=== PATIENT | female | born 1960 | race Caucasian/White ===

== ENCOUNTER 2022-11-17 16:36 | Outpatient (CLI) | payer OTHER, SELFPAY ==
[2022-11-17 17:09] LABS: Hematocrit 37.9 % (37.0-47.0); Hemoglobin 12.1 g/dL (12.0-15.0)
[2022-11-17 17:16] LABS: Anion Gap 9 mmol/L (8-16); Blood Urea Nitrogen 24 mg/dL (7-17); Calcium 9.7 mg/dL (8.4-10.2); Carbon Dioxide 25 mmol/L (22-30); Chloride 102 mmol/L (98-107); Estimated Glomerular Filt Rate > 60; Glucose 136 mg/dL (65-110); Potassium 3.8 mmol/L (3.4-5.0); Sodium 136 mmol/L (137-145)
== END 2022-11-17 16:37 | disposition home or self-care (01) ==
PROVIDERS: PCP Internal Medicine; Visit Provider Anesthesiology
DX: E11.9 Type 2 diabetes mellitus without complications (principal); D64.9 Anemia, unspecified; Z01.818 Encounter for other preprocedural examination
CPT/HCPCS: 36415; 80048; 85014; 85018

== ENCOUNTER 2022-11-23 00:41 | Day surgery (SDC) | payer OTHER, SELFPAY ==
[2022-11-16 08:27] VITALS: BMI 33.2
--- NOTE | 2022-11-16 08:38 | PC.NURSE ---
Report to the Outpatient Waiting Room, entrance under the green pavilion located off [facility], at time _0900_ on date _[id number]_. Planned Procedure Time: _1100_. Time changes happen often and if your time is changed the preop area will call you the afternoon before. - You and your visitor will be asked to self-screen and do not enter if you have any COVID symptoms. - A mask is optional within the hospital at this time. Patients may have clear liquids (water, carbonated beverages, clear teas, apple juice) until 3 hours prior to surgery with a maximum of 20 ounces. - No food from midnight until time of surgery Take the following medications with a SIP of water the morning of surgery: ___Take no medications morning of surgery. DO NOT STOP ANY OF YOUR OTHER PRESCRIPTION MEDICATIONS PRIOR TO SURGERY ?EXCEPT THE FOLLOWING Medications to discontinue per physician None Date to take last dose Please no make-up, nail palauan, hairspray, perfume, deodorant, or body powder the day of surgery. No jewelry (including any body piercings) or valuables the day of surgery, leave them at home. Please take a shower or bath the night before, or the morning of, surgery with an antibacterial soap. Wear comfortable, loose fitting clothing. - Jewelry must be removed prior to entering the operating room. Rings and piercings that are not removed may be cut off. - The hospital will not accept responsibility for valuables. - Please leave all valuables, including medications, at home the day of surgery. If you are going home after surgery, a licensed canal driver must drive you home. - NO public transportation without another adult if you receive anesthesia. - We recommend that an adult stay with you for 24 hours following discharge. - We also recommend that you do not drive, make important decision, drink alcoholic beverages, or take any drugs that were not prescribed by your health care provider for at least 24 hours after your discharge time. Follow any additional instructions given to you from your surgeon. If you or anyone in your household have experienced Covid symptoms in the past week, please notify your surgeon or the nurse liaison at the phone number below for possible testing. Telephone instructions given to _Patient___and asked if any additional questions and then verbalized understanding. Patient advised to call surgeon office or pre surgery nurse liaison [phone] if any additional questions.
--- NOTE | 2022-11-22 13:53 | WPDANESEPPF ---
Anes - Initial Pre Proc Eval Procedure: Operation Date: 11/23/22 11:45 Proposed Procedures p Hysteroscopy Dilation and Curettage - Simba Mccarthy MD Date/Time: 11/22/22 13:53 Surgeon: Simba Mccarthy MD Pre Op Diagnosis: Post Menopausal Bleeding Patient Data Age: 62 Gender: F Height: 1.63 m Weight: 87.7 kg Allergies Allergy/AdvReac Type Severity Reaction Status Date / Time No Known Allergies Allergy Verified 11/23/22 09:59 Home Medications Medication Instructions Recorded Confirmed Type Vitamin D3 2,000 units PO DAILY 11/15/22 11/15/22 History albuterol sulfate 90 mcg/actuation 2 puff inhalation Q4-5H PRN 11/15/22 11/15/22 History aerosol inhaler WHEEEZING alendronate 70 mg tablet 70 mg PO WEEKLY 11/15/22 11/15/22 History atorvastatin 10 mg tablet 10 mg PO DAILY 11/15/22 11/15/22 History esomeprazole magnesium 20 mg 20 mg PO DAILY 11/15/22 11/15/22 History capsule,delayed release (Nexium 24HR) hydrochlorothiazide 25 mg tablet 25 mg PO DAILY 11/15/22 11/15/22 History lisinopril 40 mg tablet 40 mg PO DAILY 11/15/22 11/15/22 History metformin 500 mg tablet 1,000 mg PO BID 11/15/22 11/15/22 History montelukast 10 mg tablet 10 mg PO DAILY 11/15/22 11/15/22 History ferrous sulfate 325 mg (65 mg 325 mg PO DAILY 11/16/22 11/16/22 History iron) tablet Patient hx anesthesia problems: none Family hx anesthesia problems: none Results Review: All pre-operative results and documents have been reviewed as part of the pre-operative evaluation. [facility] Past Medical History Medical History (Updated 11/22/22 @ 13:56 by Steven Pelaez MD) Chronic GERD Diabetes HTN (hypertension) Hyperlipidemia Osteoarthritis Social History Social History Smoking status: Never smoker Alcohol intake: current Drinks per week: 1 Living arrangements: with family Spiritual care concerns: No Anes - Eval Final PreProcedure Day of Procedure 11/22/22 13:53 Patient weight: obese Heart: regular rate and rhythm Lungs: clear to auscultation and normal air movement Airway: Mallampati scale class II Neurological: alert and oriented Last oral intake: >/= 8 hours ASA classification: III Emergent: no Anesthetic plan: proceed Anesthesia type and monitoring: general GIVS and LMA Results Review: All pre-operative results and documents have been reviewed as part of the pre-operative evaluation. Informed Consent: The patient's anesthetic plan and its attendant risks and benefits were discussed with the patient/family/POA. Questions were solicited and answers provided to the satisfaction of the patient/family/POA.
[2022-11-23 09:55] VITALS: BP 126/69; PULSE 73; RESP 16; TEMP 36.7; O2SAT 100; BMI 33.7
[2022-11-23] MEDS: LACTATED RINGERS 1,000 ML 30 ML IV CONT (10:10)
[2022-11-23 10:23] LABS: Glucose Point of Care 137 mg/dl (65-105)
[2022-11-23] MEDS: ACETAMINOPHEN 500 MG TABLET 1000 MG PO (12:00)
--- NOTE | 2022-11-23 12:15 | WPDHPUPDATE1 ---
History and Physical Update Update Date/Time: 11/23/22 12:15 History and Physical has been reviewed, including an updated exam of the patient. There are NO changes in the patient's condition. Risks, benefits, and alternatives have been discussed and questions answered. Patient agrees to proceed with procedure.
--- NOTE | 2022-11-23 12:16 | PM.IMHP ---
H&P: [facility] History of Present Illness Date/Time: 11/23/22 12:16 Chief Complaint: Postmenopausal bleeding Narrative: 62-year-old female with postmenopausal bleeding who presents for hysteroscopy D&C. She understands that injuries may occur during the procedure. She understands that injuries may result in hospitalization, more surgery, and severe illness. She denies any headache, Loss of consciousness or other neurologic symptoms. She denies any nausea, vomiting, fever, chills. She denies any chest pain shortness of breath. she understands risk of hemorrhage and infection. Review of Systems Review of Systems: All systems reviewed & are unremarkable except as noted in HPI and below Constitutional: Constitutional: Denies chills, Denies fatigue, Denies fever(s) and Denies weakness Eyes: Eyes: Denies blurry vision, Denies change in vision, Denies loss of peripheral vision, Denies loss of vision, Denies other visual disturbances and Denies eye pain ENT: Denies vertigo, Denies dizziness, Denies hearing loss, Denies mouth pain, Denies nasal obstruction, Denies neck mass and Denies neck pain Cardiovascular: Cardiovascular: Denies chest pain, Denies diaphoresis, Denies syncope, Denies leg edema and Denies dyspnea Respiratory: Respiratory: Denies chest congestion, Denies cough, Denies hemoptysis, Denies dyspnea and Denies wheezing Gastrointestinal: Gastrointestinal: Denies abdominal pain, Denies constipation, Denies diarrhea, Denies nausea and Denies vomiting Genitourinary: Genitourinary: Denies hematuria, Denies change in libido, Denies nocturia, Denies genital lesions, Denies flank pain and Denies urinary urgency Musculoskeletal: Musculoskeletal: Denies abnormal gait, Denies back pain, Denies myalgias, Denies arthralgias, Denies joint swelling, Denies muscle weakness and Denies neck pain Integumentary/Breasts: Skin/Breast: Denies swelling, Denies breast pain, Denies breast mass, Denies dry skin, Denies nipple discharge, Denies unusual bruising and Denies jaundice Neurologic: Denies Neuro-related abnormal movements, Denies Abnormal speech present, Denies abnormal gait, Denies behavioral changes, Denies confusion, Denies vertigo, Denies dizziness, Denies syncope, Denies loss of vision, Denies memory loss, Denies convulsions and Denies weakness Psychiatric: Psychiatric: Denies abnormal sleep pattern, Denies behavioral changes, Denies change in libido, Denies confusion, Denies depression, Denies anhedonia and Denies memory loss Endocrine: Endocrine: Reports no additional endocrine complaints, Denies change in libido and Denies fatigue Hematologic/Lymphatic: Hematologic/Lymphatic: Reports no additional hematologic/lymphatic complaints Allergic/Immunologic: Allergic/Immunologic: Reports no additional allergic/immunologic complaints and Denies wheezing PMFSH Past Medical History Medical History (Updated 11/23/22 @ 12:18 by Simba Mccarthy MD) Chronic GERD Diabetes HTN (hypertension) Hyperlipidemia Osteoarthritis Social History Social History Smoking status: Never smoker Alcohol intake: current Drinks per week: 1 Living arrangements: with family Spiritual care concerns: No Meds Home Medications and Allergies Home Medications Medication Instructions Recorded Confirmed Type Vitamin D3 2,000 units PO DAILY 11/15/22 11/23/22 History albuterol sulfate 90 mcg/actuation 2 puff inhalation Q4-5H PRN 11/15/22 11/15/22 History aerosol inhaler WHEEEZING alendronate 70 mg tablet 70 mg PO WEEKLY 11/15/22 11/15/22 History atorvastatin 10 mg tablet 10 mg PO DAILY 11/15/22 11/15/22 History esomeprazole magnesium 20 mg 20 mg PO DAILY 11/15/22 11/15/22 History capsule,delayed release (Nexium 24HR) hydrochlorothiazide 25 mg tablet 25 mg PO DAILY 11/15/22 11/15/22 History lisinopril 40 mg tablet 40 mg PO DAILY 11/15/22 11/15/22 History metformin 500 mg tablet 1,000 mg PO BID 11/15/22 11/15/22 History montelukast 10 mg tablet
[2022-11-23] MEDS: LIDOCAINE HCL 1% LOCAL INJ 20 ML VIAL 10 ML INFILTRATE (12:43)
[2022-11-23 12:56] VITALS: BP 102/49; PULSE 77; RESP 15; O2SAT 98
[2022-11-23 13:04] LABS: Glucose Point of Care 127 mg/dl (65-105)
--- NOTE | 2022-11-23 13:09 | P.OP_ITS ---
Procedure Note - Detailed Date of Procedure 11/23/22 Pre-op Diagnosis Post Menopausal Bleeding Post-op Diagnosis Same Procedure Performed Hysteroscopy D&C, and resection of polyp Surgeon Simba Mccarthy MD Anesthesia MAC Indications abnormal uterine bleeding Findings 2 small endometrial polyps, otherwise normal-appearing endometrium Description of Procedure the patient was taken the operating room. She was prepped and draped in the dorsal lithotomy position after induction of mac anesthesia. A speculum was placed in the vagina. The cervix was grasped with a tenaculum. The cervix was dilated about 1 cm. The hysteroscope was inserted. The intrauterine cavity and endocervix were evaluated. Hysteroscope was withdrawn. the 2 endometrial polyps were grasped with a polyp forceps . They were easily avulsed. A medium- size curette was used to curettage all the surfaces were within the endometrial cavity. the sample was collected on Telfa and sent to pathology. The hysteroscope was reinserted and the above findings were noted. Patient tolerated the procedure well. The speculum and tenaculum were removed. She was taken recovery room in stable condition. Sponge lap and needle counts were velia ect x2. Estimated Blood Loss 40 Drains No Packing No Pathology Yes Complications No immediate complications Condition Stable Disposition PACU
[2022-11-23 13:30] VITALS: BP 128/66; PULSE 65; RESP 16
[2022-11-23 13:55] VITALS: BP 126/65; PULSE 63; RESP 15
== END 2022-11-23 14:00 | disposition home or self-care (01) ==
PROVIDERS: PCP Internal Medicine; Visit Provider Obstetrics & Gynecology
PROC: 0U5B8ZZ Destruction of Endometrium, Via Natural or Artificial Opening Endoscopic (ICD-10-PCS; CPT 58563; principal; 2022-11-23 11:45)
DX: N84.0 Polyp of corpus uteri (principal); N95.0 Postmenopausal bleeding; K21.9 Gastro-esophageal reflux disease without esophagitis; E11.9 Type 2 diabetes mellitus without complications; I10 Essential (primary) hypertension; E78.5 Hyperlipidemia, unspecified
CPT/HCPCS: 58558; 36415; 80048; 82948; 85014; 85018; 88305; A9270; J2250; J2405; J2704; J3010; J7120

== ENCOUNTER 2023-05-30 11:51 | Outpatient (CLI) | payer OTHER, SELFPAY ==
--- NOTE | 2023-05-30 12:28 | ECG_ITS ---
Measurements Intervals Saxon Rate: 53 P: 45 VT: 192 QRS: -5 QRSD: 94 T: 15 QT: 403 QTc: 380 Interpretive Statements SINUS BRADYCARDIA DELAYED PRECORDIAL R/S TRANSITION BASELINE ARTIFACT- I, II, III, AVR, AVL, AVF, V1-V3 BORDERLINE ECG NO PREVIOUS ECG AVAILABLE FOR COMPARISON Electronically Signed On 05-30-2023 16:41:25 SAP ABAP DEVELOPER by Mulugeta Prince D.O.
[2023-05-30 13:07] LABS: Basophils Percent Auto 0.2 % (0.2-1.2); Eosinophils Absolute Auto 0.4 K/mm3 (0-0.3); Eosinophils Percent Auto 4.3 % (0-4.4); Hematocrit 38.3 % (37.0-47.0); Hemoglobin 12.1 g/dL (12.0-15.0); Immature Granulocyte Absolute 0.02 K/mm3 (0.00-0.031); Immature Granulocyte Percent A 0.2 % (0-0.5); Lymphocytes Absolute Auto 2.59 K/mm3 (0.9-3.2); Mean Corpuscular HGB Conc 31.6 g/dl (32-36); Mean Corpuscular Hemoglobin 28.6 pg (26-34); Mean Corpuscular Volume 90.5 fl (80-100); Monocytes Absolute Auto 0.4 K/mm3 (0.1-0.6); Monocytes Percent Auto 4.4 % (2.6-8.5); Neutrophils Percent Auto 59.9 % (45.5-73.1); Platelet Count Result 220 k/mm3 (150-375); Red Blood Count 4.23 M/mm3 (4.2-5.4); Red Cell Distribution Width 12.5 % (11.5-14.5); White Blood Count 8.4 K/mm3 (4.5-10.0)
[2023-05-30 13:17] LABS: INR 0.9; Prothrombin Time 12.3 Seconds (11.1-14.7)
[2023-05-30 13:18] LABS: Partial Thromboplastin Time 29.4 SECONDS (22.3-36.8)
[2023-05-30 13:33] LABS: Alanine Aminotransferase 19 U/L (6-35); Albumin Level 4.3 g/dL (3.5-5.1); Alkaline Phosphatase 57 U/L (38-126); Anion Gap 10 mmol/L (8-16); Aspartate Amino Transferase 24 U/L (14-36); Bilirubin,Total 0.5 mg/dL (0.2-1.3); Blood Urea Nitrogen 28 mg/dL (7-17); Calcium 9.4 mg/dL (8.4-10.2); Carbon Dioxide 25 mmol/L (22-30); Chloride 100 mmol/L (98-107); Estimated Glomerular Filt Rate > 60; Glucose 102 mg/dL (65-110); Potassium 4.2 mmol/L (3.4-5.0); Sodium 135 mmol/L (137-145)
== END 2023-05-30 11:52 | disposition home or self-care (01) ==
LOC: ANHSURGERY 11:54
PROVIDERS: PCP Internal Medicine; Visit Provider Urology
DX: N81.4 Uterovaginal prolapse, unspecified (principal); I10 Essential (primary) hypertension; Z01.818 Encounter for other preprocedural examination; R94.31 Abnormal electrocardiogram [ECG] [EKG]
CPT/HCPCS: 36415; 80053; 85025; 85610; 85730; 86850; 86900; 86901; 93005

== ENCOUNTER 2023-06-12 01:58 | Day surgery (SDC) | payer OTHER, SELFPAY ==
--- NOTE | 2023-05-30 11:33 | PC.NURSE ---
PRE-OP INSTRUCTIONS, PLEASE READ CAREFULLY Report to the Outpatient Waiting Room, entrance under the green pavilion located off [facility], at time _0600_ on date _06/12/23_. Planned Procedure Time: _0730_. PACK A SMALL OVERNIGHT BAG AND LEAVE IN THE CAR Time changes happen often and if your time is changed the preop area will call you the afternoon before. - You and your visitor will be asked to self-screen and do not enter if you have any COVID symptoms. - A mask is optional within the hospital at this time. -VISITING HOURS 8AM-8PM Patients may have clear liquids (water, carbonated beverages, clear teas, apple juice) until 3 hours prior to surgery with a maximum of 20 ounces. - No food from midnight until time of surgery Take the following medications with a SIP of water the morning of surgery: _INHALER IF NEEDED_ DO NOT STOP ANY OF YOUR OTHER PRESCRIPTION MEDICATIONS PRIOR TO SURGERY ?EXCEPT THE FOLLOWING Medications to discontinue per Physician - ___NONE___Date to take last dose ____ Please no make-up, nail surinamese, hairspray, perfume, deodorant, or body powder the day of surgery. No jewelry (including any body piercings) or valuables the day of surgery, leave them at home. Please take a shower or bath the night before, or the morning of, surgery with an antibacterial soap. Wear comfortable, loose fitting clothing. - Jewelry must be removed prior to entering the operating room. Rings and piercings that are not removed may be cut off. - The hospital will not accept responsibility for valuables. - Please leave all valuables, including medications, at home the day of surgery. If you are going home after surgery, a licensed snaker tractor driver must drive you home. - NO public transportation without another adult if you receive anesthesia. - We recommend that an adult stay with you for 24 hours following discharge. - We also recommend that you do not drive, make important decision, drink alcoholic beverages, or take any drugs that were not prescribed by your health care provider for at least 24 hours after your discharge time. Follow any additional instructions given to you from your surgeon. If you or anyone in your household have experienced Covid symptoms in the past week, please notify your surgeon or the nurse liaison at the phone number below for possible testing. Instructions given to _PATIENT_and asked if any additional questions and then verbalized understanding. Patient advised to call surgeon office or pre surgery nurse liaison [phone] if any additional questions.
[2023-05-30 12:10] VITALS: BP 138/60; PULSE 66; RESP 18; TEMP 36.9; O2SAT 100; BMI 34.5
--- NOTE | 2023-06-03 18:35 | PM.IMHP ---
H&P: HPI History of Present Illness Date/Time: 06/03/23 18:35 Chief Complaint: POP/ADIA Narrative: uterine prolapse and ADIA Review of Systems Review of Systems: All systems reviewed & are unremarkable except as noted in HPI and below COUNTS INCLUDE 234 BEDS AT THE [facility] Past Medical History Medical History Chronic GERD Diabetes HTN (hypertension) Hyperlipidemia Osteoarthritis Social History Social History Smoking status: Never smoker Second hand tobacco smoke exposure: No Alcohol intake: current Drinks per week: 1 Substance use: never Substance use type: does not use Living arrangements: with family Additional living arrangements comments: LIVES WITH SIGNIFICANT OTHER - CAITLIN MOE [facility] care concerns: No Meds Home Medications and Allergies Home Medications Medication Instructions Recorded Confirmed Type Vitamin D3 2,000 units PO DAILY 11/15/22 05/30/23 History albuterol sulfate 90 mcg/actuation 2 puff inhalation Q4-5H PRN 11/15/22 05/30/23 History aerosol inhaler WHEEEZING alendronate 70 mg tablet 70 mg PO WEEKLY 11/15/22 05/30/23 History atorvastatin 10 mg tablet 10 mg PO DAILY 11/15/22 05/30/23 History esomeprazole magnesium 20 mg 20 mg PO DAILY 11/15/22 05/30/23 History capsule,delayed release (Nexium 24HR) hydrochlorothiazide 25 mg tablet 25 mg PO DAILY 11/15/22 05/30/23 History lisinopril 40 mg tablet 40 mg PO DAILY 11/15/22 05/30/23 History metformin 500 mg tablet 1,000 mg PO BID 11/15/22 05/30/23 History montelukast 10 mg tablet 10 mg PO DAILY 11/15/22 05/30/23 History ferrous sulfate 325 mg (65 mg 325 mg PO DAILY 11/16/22 05/30/23 History iron) tablet Allergies Allergy/AdvReac Type Severity Reaction Status Date / Time No Known Allergies Allergy Verified 05/30/23 12:04 Exam Narrative: + urethral mobility anterior wall +3 Atkinson at 0 Assessment and Plan Assessment and plan (1) Uterine prolapse: Code(s): N81.4 - Uterovaginal prolapse, unspecified Status: Acute (2) ADIA (stress urinary incontinence, female): Code(s): N39.3 - Stress incontinence (female) (male) Status: Acute Plan robotic colpopexy, urethal sling. Risks, bennifits, alternative discuseed and documented in office chart
--- NOTE | 2023-06-09 10:52 | P.HP_ITS ---
H&P: HPI History of Present Illness Date/Time: 06/09/23 10:52 Chief Complaint: prolapse and stress incontinence Narrative: 62-year-old with pelvic organ prolapse and stress incontinence presents for surgical procedure Review of Systems Review of Systems: All systems reviewed & are unremarkable except as noted in HPI and below PMFSH Past Medical History Medical History Chronic GERD Diabetes HTN (hypertension) Hyperlipidemia Osteoarthritis Social History Social History Smoking status: Never smoker Second hand tobacco smoke exposure: No Alcohol intake: current Drinks per week: 1 Substance use: never Substance use type: does not use Living arrangements: with family Additional living arrangements comments: LIVES WITH SIGNIFICANT OTHER - CAITLIN OME [facility] concerns: No Meds Home Medications and Allergies Home Medications Medication Instructions Recorded Confirmed Type Vitamin D3 2,000 units PO DAILY 11/15/22 05/30/23 History albuterol sulfate 90 mcg/actuation 2 puff inhalation Q4-5H PRN 11/15/22 05/30/23 History aerosol inhaler WHEEEZING alendronate 70 mg tablet 70 mg PO WEEKLY 11/15/22 05/30/23 History atorvastatin 10 mg tablet 10 mg PO DAILY 11/15/22 05/30/23 History esomeprazole magnesium 20 mg 20 mg PO DAILY 11/15/22 05/30/23 History capsule,delayed release (Nexium 24HR) hydrochlorothiazide 25 mg tablet 25 mg PO DAILY 11/15/22 05/30/23 History lisinopril 40 mg tablet 40 mg PO DAILY 11/15/22 05/30/23 History metformin 500 mg tablet 1,000 mg PO BID 11/15/22 05/30/23 History montelukast 10 mg tablet 10 mg PO DAILY 11/15/22 05/30/23 History ferrous sulfate 325 mg (65 mg 325 mg PO DAILY 11/16/22 05/30/23 History iron) tablet Allergies Allergy/AdvReac Type Severity Reaction Status Date / Time No Known Allergies Allergy Verified 05/30/23 12:04 Exam Narrative: no acute distress normal breathing alert orient x3 urethral anterior wall +2 apex at 0 Assessment and Plan Assessment and plan (1) ADIA (stress urinary incontinence, female): Code(s): N39.3 - Stress incontinence (female) (male) Status: Acute (2) Uterine prolapse: Code(s): N81.4 - Uterovaginal prolapse, unspecified Status: Acute Plan plan for robotic colpopexy. Urethral sling as well. Understands risks of bleeding, infection, recurrence of prolapse, recurrent or persistent stress incontinence, damage to surrounding organs, damage to the urinary tract, mesh related complications including exposure and extrusion, postop voiding dysfunction and need for ancillary procedures. She agrees to proceed
[2023-06-12] VITALS (11 sets, daily range): BP systolic 124–143; BP diastolic 53–69; PULSE 57–85; RESP 10–19; TEMP 36.2–36.4; O2SAT 92–99; BMI 34.0
[2023-06-12] MEDS: LACTATED RINGERS 1,000 ML 30 ML IV CONT ×3 (06:40→12:56)
[2023-06-12 07:00] LABS: Glucose Point of Care 156 mg/dl (65-105)
--- NOTE | 2023-06-12 07:07 | WPDANESEPPF ---
Anes - Initial Pre Proc Eval Procedure: Operation Date: 06/12/23 07:30 Proposed Procedures p Robotic Sacrocolpopexy - Dino Bashir MD s Urethral Sling - Dino Bashir MD s Robotic Assisted Laparoscopic Supracervical Hysterectomy With Bilateral Salpingo-oophorectomy - Simba Mccarthy MD Date/Time: 06/12/23 07:07 Surgeon: Dino Bashir MD Pre Op Diagnosis: Incom Uterovaginal Prolapse, Stress Incont (cont) Patient Data Age: 62 Gender: F Height: 1.63 m Weight: 91.3 kg Last Vital Signs Temp 98.5 F 05/30/23 12:10 Pulse 66 05/30/23 12:10 Resp 18 05/30/23 12:10 BP 138/60 05/30/23 12:10 Pulse Ox 100 05/30/23 12:10 O2 Del Method Room Air 05/30/23 12:10 Allergies Allergy/AdvReac Type Severity Reaction Status Date / Time No Known Allergies Allergy Verified 05/30/23 12:04 Home Medications Medication Instructions Recorded Confirmed Type Vitamin D3 2,000 units PO DAILY 11/15/22 05/30/23 History albuterol sulfate 90 mcg/actuation 2 puff inhalation Q4-5H PRN 11/15/22 05/30/23 History aerosol inhaler WHEEEZING alendronate 70 mg tablet 70 mg PO WEEKLY 11/15/22 05/30/23 History atorvastatin 10 mg tablet 10 mg PO DAILY 11/15/22 05/30/23 History esomeprazole magnesium 20 mg 20 mg PO DAILY 11/15/22 05/30/23 History capsule,delayed release (Nexium 24HR) hydrochlorothiazide 25 mg tablet 25 mg PO DAILY 11/15/22 05/30/23 History lisinopril 40 mg tablet 40 mg PO DAILY 11/15/22 05/30/23 History metformin 500 mg tablet 1,000 mg PO BID 11/15/22 05/30/23 History montelukast 10 mg tablet 10 mg PO DAILY 11/15/22 05/30/23 History ferrous sulfate 325 mg (65 mg 325 mg PO DAILY 11/16/22 05/30/23 History iron) tablet Laboratory Tests 06/12/23 06:54 POC Capillary Glucose 156 H mg/dl (65-105) Patient hx anesthesia problems: none Family hx anesthesia problems: none Results Review: All pre-operative results and documents have been reviewed as part of the pre-operative evaluation. [facility] Past Medical History Medical History Chronic GERD Diabetes HTN (hypertension) Hyperlipidemia Osteoarthritis Social History Social History Smoking status: Never smoker Second hand tobacco smoke exposure: No Alcohol intake: current Drinks per week: 1 Substance use: never Substance use type: does not use Living arrangements: with family Additional living arrangements comments: LIVES WITH SIGNIFICANT OTHER - CAITLIN MOE Spiritual care concerns: No Anes - Eval Final PreProcedure Day of Procedure 06/12/23 07:07 Patient weight: obese Heart: regular rate and rhythm Lungs: clear to auscultation Airway: Mallampati scale class II Neurological: alert and oriented Last oral intake: >/= 8 hours ASA classification: III Emergent: no Anesthetic plan: proceed Anesthesia type and monitoring: general ETT and standard monitoring Results Review: All pre-operative results and documents have been reviewed as part of the pre-operative evaluation. Informed Consent: The patient's anesthetic plan and its attendant risks and benefits were discussed with the patient/family/POA. Questions were solicited and answers provided to the satisfaction of the patient/family/POA.
--- NOTE | 2023-06-12 07:08 | WPDHPUPDATE1 ---
History and Physical Update Update Date/Time: 06/12/23 07:08 History and Physical has been reviewed, including an updated exam of the patient. There are NO changes in the patient's condition. Risks, benefits, and alternatives have been discussed and questions answered. Patient agrees to proceed with procedure.
--- NOTE | 2023-06-12 07:09 | WPDHPUPDATE1 ---
History and Physical Update Update Date/Time: 06/12/23 07:09 History and Physical has been reviewed, including an updated exam of the patient. There are NO changes in the patient's condition. Risks, benefits, and alternatives have been discussed and questions answered. Patient agrees to proceed with procedure.
--- NOTE | 2023-06-12 07:10 | WPDHPUPDATE1 ---
History and Physical Update Update Date/Time: 06/12/23 07:10 History and Physical has been reviewed, including an updated exam of the patient. There are NO changes in the patient's condition. Risks, benefits, and alternatives have been discussed and questions answered. Patient agrees to proceed with procedure.
[2023-06-12] MEDS: ACETAMINOPHEN 500 MG TABLET 1000 MG PO (07:21)
[2023-06-12] MEDS: KETOROLAC 15 MG/ML VIAL (*BKC) IV PUSH (07:21)
[2023-06-12] MEDS: ceFAZolin 2 GM/D5W 50 ML 2 GM/50 ML BAG IVPB (07:35)
[2023-06-12] MEDS: metroNIDAZOLE 500 MG/ISO 100ML 500 MG/100 ML BAG 100 MG IVPB (07:35)
[2023-06-12] MEDS: BUPIVACAINE/EPINEPHRINE 0.5% 50 ML VIAL 40 ML INFILTRATE (08:06)
--- NOTE | 2023-06-12 09:11 | W.PM.PROC2 ---
Procedure Note - Detailed Date of Procedure 06/12/23 Pre-op Diagnosis Incom Uterovaginal Prolapse, Stress Incont (cont) Post-op Diagnosis Same Procedure Performed laparoscopic supracervical hysterectomy and bilateral salpingo-oophorectomy. Surgeon Simba Mccarthy MD Anesthesia General Indications pelvic organ prolapse Findings small uterus, normal appearing ovaries and normal-appearing tubes. Description of Procedure This patient was taken to the operating room. She was prepped and draped in the dorsal lithotomy position after induction of general anesthesia. a tenaculum was applied to the vaginal mucosa at the cervicovaginal juncture posteriorly. This was done with a speculum and tenaculum. The speculum was placed. The cervix was grasped with a tenaculum. Trocars were placed by Dr. Bashir. The location of the ureters was identified at the pelvic brim. The ovaries were grasped and raised. The infundibulopelvic ligaments were cauterized and transected with LigaSure cautery. This was all done in a bilateral fashion. The para ovarian tissue was cauterized and transected with LigaSure cautery bilaterally. Moving around the ovary into the broad ligament the tissue was cauterized transected with LigaSure cautery. The round ligaments were cauterized transected with LigaSure cautery this was all done in a bilateral fashion. In a stepwise fashion along the lateral aspects of the uterus the round ligament and broad ligaments were cauterized transected down to the level of the uterine arteries. The cervix was transected using unipolar cautery. The uterus and bilateral tubes and ovaries were laid off to the side for Dr. Bashir to remove later. The remainder of the procedure was performed by Dr. Bashir again he finished the surgery. Estimated Blood Loss 10 Drains Yes Packing No Pathology Yes Complications No immediate complications Condition Stable Disposition Floor
--- NOTE | 2023-06-12 10:41 | W.PM.PROC2 ---
Procedure Note - Detailed Date of Procedure 06/12/23 Pre-op Diagnosis Incom Uterovaginal Prolapse, Stress Incont (cont) Post-op Diagnosis Same Procedure Performed Robotic assisted laparoscopic sacral colpopexy Urethral sling Cystoscopy Surgeon Dino Bashir MD Anesthesia General Indications A woman with uterine prolapse as well as stress incontinence. She desires surgical correction. She is here for the above. She understands risks of bleeding, infection, diskitis, damage to surrounding organs, bowel injury, bowel obstruction, mesh related complications including exposure and extrusion, postoperative voiding dysfunction including incontinence and retention, need for ancillary procedures, dyspareunia, recurrence of prolapse, and other perioperative intraoperative postoperative complications. She agrees to proceed. Findings See below Description of Procedure She was correctly identified. Informed consent obtained. She from the operating room. She was given general anesthesia. She was given appropriate perioperative antibiotics. She was placed a low lithotomy position. Pressure points were padded. A time-out performed. I marked out the skin 3 fingerbreadths cephalad to the umbilicus. I anesthetized the skin. I incised the skin. I dissected down to the fascia. I grasped the fascia with Korin clamps. I entered the fascia sharply in a Jean type technique. I placed sutures for later fascial closure. I placed a midline trocar. I examined the abdomen. There is no sign of any injury. Under direct vision I placed 2 additional trocars in the right upper quadrant and 2 additional trocars the left upper quadrant. She was placed in steep Trendelenburg. The robot was docked. Her qa software test engineer completed their portion of the procedure. Please see that operative report for details. I then sat at the console. The Sizer in the vagina created plane on the anterior and posterior vaginal wall. I took great care not to injure the vagina, bladder, or rectum. I examined the posterior vaginal wall before my dissection of the posterior vaginal wall. There was some excoriation in this area. Examination vaginally revealed no through and through opening to the vagina but definite excoriation of the vaginal mucosa. I elected to not leave mesh on the posterior wall but connected to the cervix instead. I introduced the mesh into the abdomen. I sewed the anterior leaflet of mesh on the anterior vaginal wall. I sewed the posterior leaflet of mesh onto the cervix only. I did not take the mesh down the entire posterior vaginal wall. This attachment was done with several sutures of 2 0 [place]-Fred. I reflected the colon laterally. I opened the posterior peritoneum over the sacral promontory. I carried this into the cul-de-sac. I freed up the edges for later retroperitonealization. I located the anterior longitudinal ligament the sacrum. I cleaned off all fatty tissues. I then tensioned my mesh appropriately. I did a vaginal exam the bedside. I assured prolapse reduction without undue tension. There is no signs of any mesh exposure in the vagina. I then sewed the proximal leaflet of mesh onto the anterior longitudinal ligament of the sacrum with several sutures of 2 0 [place]-Fred. I then used a 2 0 Monocryl to completely and meticulously retroperitonealized all mesh. I allowed the colon to go back to its normal anatomic location. There is no sign of any impingement. The specimen was then removed. All ports removed. Fascia was tied down. Skin was closed with Monocryl and surgical glue. She was repositioned and prepped for urethral sling. I marked out the inner thigh incisions. I anesthetized the skin and made the incisions. I then anesthetized the anterior vaginal wall at the mid urethra. I made a 1 cm incision. I dissected out laterally taking great care not to injure the refilled vaginal wall. I passed the helical trocars. I did this 1st on the l
[2023-06-12 10:59] LABS: Glucose Point of Care 171 mg/dl (65-105)
[2023-06-12] MEDS: fentaNYL CITRATE INJ (*CRX) 100 MCG/2 ML VIAL 25 MCG IV PUSH (11:13)
[2023-06-12] MEDS: oxyCODONE HCL (*CRX) 5 MG TAB IR PO (12:13)
== END 2023-06-12 14:05 | disposition home or self-care (01) ==
PROVIDERS: Obstetrics & Gynecology; PCP Internal Medicine; Visit Provider Urology
PROC: (CPT 57425; principal; 2023-06-12 07:30)
PROC: (CPT 57425; 2023-06-12 07:30)
PROC: 0UT94ZZ Resection of Uterus, Percutaneous Endoscopic Approach (ICD-10-PCS; CPT 57425; 2023-06-12 07:30)
DX: N81.2 Incomplete uterovaginal prolapse (principal); N39.3 Stress incontinence (female) (male); N80.03 Adenomyosis of the uterus; N83.292 Other ovarian cyst, left side; N83.291 Other ovarian cyst, right side; I10 Essential (primary) hypertension; K21.9 Gastro-esophageal reflux disease without esophagitis; E11.9 Type 2 diabetes mellitus without complications; E78.5 Hyperlipidemia, unspecified; M19.90 Unspecified osteoarthritis, unspecified site; E66.9 Obesity, unspecified; Z68.34 Body mass index [BMI] 34.0-34.9, adult; Z79.51 Long term (current) use of inhaled steroids; Z79.84 Long term (current) use of oral hypoglycemic drugs
CPT/HCPCS: 58542; 57425; 57288; S2900; 36415; 80053; 82948; 85025; 85610; 85730; 86850; 86900; 86901; 88307; 93005; A9270; C1771; C1781; J0690; J1100; J1170; J1836; J1885; J2405; J2704; J2710; J3010; J7030; J7120

== ENCOUNTER 2023-07-21 07:55 | Outpatient (CLI) | payer OTHER, SELFPAY ==
--- NOTE | ~2023-07-21 | XR_ITS ---
XR chest 2V DATE: 07/21/2023 08:10 INDICATION: Screening for tuberculosis TECHNIQUE: PA and lateral views COMPARISON: None FINDINGS: Normal heart size. There is asymmetric increased density overlying the right suprahilar area on the PA view without defi nite correlate on the lateral view. CT thorax is recommended. Otherwise no pulmonary infiltrate or consolidation, pulmonary vascular congestion or pleural effusion or pneumothorax is detected. IMPRESSION: Asymmetric increased density overlying right suprahilar area; CT thorax is recommended Reviewed, dictated and finalized at location B. GE COORDINATOR IMPRESSION: Asymmetric increased density overlying right suprahilar area; CT th orax is recommended
== END 2023-07-21 07:56 | disposition home or self-care (01) ==
LOC: ANHIMG 07:58
PROVIDERS: PCP Internal Medicine; Visit Provider Internal Medicine
DX: Z11.1 Encounter for screening for respiratory tuberculosis (principal)
CPT/HCPCS: 71046

== ENCOUNTER → 2023-07-28 15:29 | Outpatient (CLI) | payer OTHER, SELFPAY ==
--- NOTE | ~2023-07-28 | CT_ITS ---
CT Scan of the Chest without Contrast: Clinical Indication: Abnormal chest x-ray, TB exposure Technique: Contiguous sections were acquired throughout the chest without intravenous contrast. Dose reduction technique was used on this scan by utilizing automated exposure control and iterative recon struction technique. The dose-length product (DLP) was 492.68 mGy-cm. Findings: There is no evidence of any significant mediastinal, hilar or axillary lymphadenopathy. The mediastin al soft tissues appear normal. There is no evidence of pleural or pericardial effusion. . Probable focal scarring or pleural thickening at the posterior medial aspect of the superior segmen t of the right lower lobe, which could account for prior radiographic finding. No other pulmonary abn ormality seen. Images through the upper abdomen reveal no abnormalities. Impression: No significant abnormalities seen. Probable focal scarring or pleural thickening at the superior segm ent of the right lower lobe, which could account for the prior radiographic finding. Reviewed, dictated and finalized at [facility]. READER Impression: No significant abnormalities seen. Probable focal scarring or pleural thickenin g at the superior segment of the right lower lobe, which could account for the prior radiographic finding.
== END ==
PROVIDERS: PCP Internal Medicine; Visit Provider Internal Medicine
DX: R93.89 Abnormal findings on diagnostic imaging of other specified body structures (principal)
CPT/HCPCS: 71250

== ENCOUNTER 2024-10-01 15:51 | Outpatient (CLI) | payer OTHER, SELFPAY ==
--- NOTE | ~2024-10-01 | MM_ITS ---
EXAMINATION: MM screening manny BI w sebastián HISTORY: Screening TECHNIQUE: Craniocaudal and mediolateral oblique 3-D tomosynthesis images were obtained and synthetic 2-D images were generated. CAD analysis was submitted and interpreted. COMPARISON: 02/02/2008 and 07/28/2006 BREAST PARENCHYMAL COMPOSITION: There are scattered areas of fibroglandular density. FINDINGS: Interval development of bulky calcifications within the central right breast, morphological ly benign in appearance. Interval development of two well-circumscribed oval-shaped asymmetries within the lower inner right b reast, likely intramammary lymph nodes for which spot compression followed by a focused ultrasound is recommended for confirmation. Otherwise stable parenchymal pattern without suspicious microcalcifications or architectural distorti on. IMPRESSION: Interval development of two well-circumscribed oval-shaped asymmetries within the lower inner right b reast, likely intramammary lymph nodes for which spot compression followed by a focused ultrasound is recommended for confirmation. BI-RADS Category 0: Incomplete: Needs additional imaging evaluation. Reviewed, dictated and finalized at location A. IMPRESSION: Interval development of two well-circumscribed oval-shaped asymmetries within t he lower inner right breast, likely intramammary lymph nodes for which spot com pression followed by a focused ultrasound is recommended for confirmation. BI-RADS Category 0: Incomplete: Needs additional imaging evaluation.
== END 2024-10-01 15:52 | disposition home or self-care (01) ==
PROVIDERS: PCP Emergency Medicine; Visit Provider Nurse Practitioner
DX: Z12.31 Encounter for screening mammogram for malignant neoplasm of breast (principal); R92.8 Other abnormal and inconclusive findings on diagnostic imaging of breast
CPT/HCPCS: 77063; 77067

== ENCOUNTER 2024-10-30 09:23 | Outpatient (CLI) | payer OTHER, SELFPAY ==
--- NOTE | ~2024-10-30 | MMUS_ITS ---
EXAMINATION: MM diagnostic manny RT w sebastián, US breast RT limited HISTORY: Follow-up right breast mass. TECHNIQUE: Additional 3-D tomosynthesis images of the right breast were performed and synthetic 2-D i mages were generated. CAD analysis was submitted and interpreted. High resolution Limited right breas t ultrasound was performed. COMPARISON: 10/01/2024 and 02/02/2008 BREAST PARENCHYMAL COMPOSITION: Not dense: There are scattered areas of fibroglandular density. FINDINGS: MAMMOGRAPHIC FINDINGS: There is a stable cluster of masses in the central aspect of the right breast, middle third. There is a enlarging mass in the lower inner quadrant of the right breast, middle third. There is a developin g cluster of indeterminate calcifications in the upper central right breast, middle third. ULTRASOUND: Limited right breast ultrasound: At 3:00, 4 cm from the nipple there is a 1 cm simple cyst correspond ing to the mammographic finding. No suspicious sonographic abnormalities. IMPRESSION: 1. Indeterminate cluster of calcifications upper central right breast, middle third, likely benign. B enign right breast cyst at 3:00, 4 cm from the nipple corresponds to mass seen on mammography. 2. Recommend 6 month follow-up diagnostic right mammogram BI-RADS category 3, probably benign findings. Reviewed, dictated and finalized at location A. IMPRESSION: 1. Indeterminate cluster of calcifications upper central right breast, middle t hird, likely benign. Benign right breast cyst at 3:00, 4 cm from the nipple cor responds to mass seen on mammography. 2. Recommend 6 month follow-up diagnostic right mammogram BI-RADS category 3, probably benign findings.
== END 2024-10-30 09:24 | disposition home or self-care (01) ==
PROVIDERS: PCP Student in an Organized Health Care Education/Training Program; Visit Provider Nurse Practitioner
DX: R92.8 Other abnormal and inconclusive findings on diagnostic imaging of breast (principal); R92.2 Inconclusive mammogram
CPT/HCPCS: 76642; 77061; 77065; G0279

== ENCOUNTER 2024-10-31 12:07 | Outpatient (CLI) | payer OTHER, SELFPAY ==
--- NOTE | ~2024-10-31 | XR_ITS ---
Clinical Indication: TB screening PA and lateral views of the chest: Comparison: 07/21/2023 Findings: The lungs are clear, without evidence of focal consolidation or pleural effusion. Cardiome diastinal silhouette is within normal limits. Bones and soft tissues are unremarkable. Impression: Normal chest. Reviewed, dictated and finalized at [facility]. Impression: Normal chest.
--- OUTSIDE RECORDS SUMMARY | 2024-10-31 13:23 | XMS_ITS | Encounter Summary ---
Author Organization [facility] Address [address] [place] [id number] Care Team Providers Care Test Pilot Name Role Phone Jocelyne Blair MD Primary Care Provider + Encounter Details Date Type Department Care Team ([facility] Contact Info) Description 10/18/2024 MyChart Message Enc [facility] - [address] [address] Jocelyne Blair MD [address] [place] [phone] New med Social History Tobacco Use Types Packs/Day Years Used Date Smoking Tobacco: Never Passive Smoke Exposure: Past Smokeless Tobacco: Never Alcohol Use Standard Drinks/Week Comments Yes 1.7 (1 standard drink = 0.6 oz p ure alcohol) occ PHQ-2 Answer Date Recorded Patient Health Questionnaire-2 Score 0 10/11/2024 Comments No Sex and Gender Information Value Date Recorded Sex Assigned at Female 09/02/2024 7:31 PM EVENT DESIGNER Legal Sex Female 7:10 PM EVENT DESIGNER Gender Identity Not on file Sexual Orientation Not on file documented as of this encounter Plan of Treatment Upcoming Encounters Date Type Department Care Team (Late Contact Info) Description 01/13/2025 2:40 PM CDT Office Visit [facility] - [address] [place] [address] Jocelyne Blair MD [address] [place] [address] documented as of this encounter Visit Diagnoses Not on filedocumented in this encounter Care Teams Test Pilot Relationship Specialty Start Date End Date Jocleyne Blair MD [address] [facility] [address] [place] [phone] PCP - General FAMILY PRACTICE 09/11/24 documented as of this encounter
--- OUTSIDE RECORDS SUMMARY | 2024-10-31 13:23 | XMS_ITS | Encounter Summary ---
Author Organization [facility] Address [address] [place] [address] Care Team Providers Care Vessel Slag Worker Name Role Phone Jocelyne Blair MD Primary Care Provider + Reason for Visit * Reason Onset Date Comments Record Request 10/30/2024 Encounter Details Date Type Department Care Team (Late Contact Info) Description 10/30/2024 Telephone [facility] [address] [facility] [address] [place] [address] Jocelyne Blair MD [address] [place] [address] [phone] Record Request Social History Tobacco Use Types Packs/Day Years Used Date Smoking Tobacco: Never Passive Smoke Exposure: Past Smokeless Tobacco: Never Alcohol Use Standard Drinks/Week Comments Yes 1.7 (1 standard drink = 0.6 oz p ure alcohol) occ PHQ-2 Answer Date Recorded Patient Health Questionnaire-2 Score 0 10/11/2024 Comments No Sex and Gender Information Value Date Recorded Sex Assigned at Female 09/02/2024 7:31 PM CLOTH PRINTER HELPER Legal Sex Female 7:10 PM CLOTH PRINTER HELPER Gender Identity Not on file Sexual Orientation Not on file documented as of this encounter Progress Notes * Samara Gray MA - 10/30/2024 1:08 PM CDT Incoming mammogram diagnostic documented in this encounter Plan of Treatment Upcoming Encounters Date Type Department Care Team (Late st Contact Info) Description 01/13/2025 2:40 PM CDT Office Visit [facility] [address] [facility] [address] [place] [address] Jocelyne Blair MD [address] [place] [phone] documented as of this encounter Visit Diagnoses Not on filedocumented in this encounter Care Teams Vessel Slag Worker Relationship Specialty Start Date End Date Jocelyne Blair MD [address] [place] [phone] PCP - General FAMILY PRACTICE 09/11/24 documented as of this encounter
--- OUTSIDE RECORDS SUMMARY | 2024-10-31 13:23 | XMS_ITS | Encounter Summary ---
Author Organization [facility] Address [address] [place] [address] Care Team Providers Care Wash And Greaser Name Role Phone Jocelyne Blair MD Primary Care Provider + Encounter Details Date Type Department Care Team (Latest Contact Info) Description 10/30/2024 Results Follow-Up [facility] - [place] [address] [facility] [address] [place] [address] [phone] Susana Carreno NP [address] [place] [address] HEMOGLOBIN, GLYCOSYLATED, COMPREHENSIVE METABOLIC PANEL, LIPID PANEL, Additional followed-up results: 4 Social History Tobacco Use Types Packs/Day Years Used Date Smoking Tobacco: Never Passive Smoke Exposure: Past Smokeless Tobacco: Never Alcohol Use Standard Drinks/Week Comments Yes 1.7 (1 standard drink = 0.6 oz p ure alcohol) occ PHQ-2 Answer Date Recorded Patient Health Questionnaire-2 Score 0 10/11/2024 Comments No Sex and Gender Information Value Date Recorded Sex Assigned at Female 09/02/2024 7:31 PM EDUCATIONAL TECHNICIAN Legal Sex Female 7:10 PM EDUCATIONAL TECHNICIAN Gender Identity Not on file Sexual Orientation Not on file documented as of this encounter Progress Notes * Lidia Marvin LPN - 10/31/2024 10:13 AM CDT Rosalia at [facility] is aware that patient is coming. I told patient to mask. Also Serene is aware that I wrote a work letter and she will print it out from my chart. Beryl with the health department will take care of treatment once she gets the chest xray report. documented in this encounter Plan of Treatment Upcoming Encounters Date Type Department Care Team (Late st Contact Info) Description 01/13/2025 2:40 PM CDT Office Visit [facility] - [place] [address] [place] [address] Jocelyne Blair MD [address] [place] [address] Scheduled Orders Name Type Priority Associated Diagnoses Orde r Schedule XR CHEST PA+LAT Imaging Routine Screening for tuberculosis Expected: 10/31/2024, Expires: 10/31/2025 documented as of this encounter Visit Diagnoses Diagnosis Screening for tuberculosis- Primary Screening examination for pulmonary tuberculosis documented in this encounter Care Teams Wash And Greaser Relationship Specialty Start Date End Date Jocelyne Blair MD [address] [place] [address] PCP - General FAMILY PRACTICE 09/11/24 documented as of this encounter
--- OUTSIDE RECORDS SUMMARY | 2024-10-31 13:23 | XMS_ITS | Encounter Summary ---
Author Organization [facility] Address [address] [place] [address] Care Team Providers Care Mat Puncher Name Role Phone Jocelyne Blair MD Primary Care Provider + Encounter Details Date Type Department Care Team ([facility] Contact Info) Description 10/31/2024 MyChart Message Enc [facility] Family Medicine [address] [address] Jocelyne Blair MD [address] [place] [address] X-Ray Social History Tobacco Use Types Packs/Day Years Used Date Smoking Tobacco: Never Passive Smoke Exposure: Past Smokeless Tobacco: Never Alcohol Use Standard Drinks/Week Comments Yes 1.7 (1 standard drink = 0.6 oz p ure alcohol) occ PHQ-2 Answer Date Recorded Patient Health Questionnaire-2 Score 0 10/11/2024 Comments No Sex and Gender Information Value Date Recorded Sex Assigned at Female 09/02/2024 7:31 PM FINANCIAL REPORTING ADVISOR Legal Sex Female 7:10 PM FINANCIAL REPORTING ADVISOR Gender Identity Not on file Sexual Orientation Not on file documented as of this encounter Plan of Treatment Upcoming Encounters Date Type Department Care Team ([facility] Contact Info) Description 01/13/2025 2:40 PM CDT Office Visit [facility] Medicine [address] [place] [address] Jocelyne Blair MD [address] [place] [address] documented as of this encounter Visit Diagnoses Not on filedocumented in this encounter Care Teams Mat Puncher Relationship Specialty Start Date End Date Jocelyne Blair MD [address] [facility] [address] [place], [place] [phone] PCP - General FAMILY PRACTICE 09/11/24 documented as of this encounter
--- OUTSIDE RECORDS SUMMARY | 2024-10-31 13:23 | XMS_ITS | Data Portability ---
Author Organization [place] [facility] [employer], Main Office Address [address] [place] [address] Assessment No assessment recorded. Plan of Treatment Reminders Order Date Submit Date Provider Last Modified By Organization Details Last Modified Time Details Appointments None recorded. Lab CMP, serum or plasma [address], [address] [place], [address], 3 08:03:38 HbA1c (hemoglobi n A1c), blood [address], [address] [place], [address], 3 08:03:39 vitamin D, 25-hydroxy , total, serum [address], [address] [place] [address], [address], 3 08:03:39 lipid panel, serum [address], [address] [place], [address], 3 08:03:39 ferritin, serum or plasma [address], [address] [place], [address], 3 08:03:39 iron + total iron-janet ng capacity (TIBC), serum [address], [address] [place], [address], 3 08:03:39 CBC w/ auto diff [address], [address] [place], [address], 3 08:03:39 Referral None recorded. Procedures None recorded. Surgeries None recorded. Imaging MAMMO, screening, digital, bilateral [address] (Imaging), [address] [place] [address] [address], [place], [address], 3 08:02:55 DEXA [address] (Imaging), [address] [place] [address] [address], [place], [address], 3 08:02:56 Medication Orders None recorded. Patient TargetsNo targets recorded. Patient Instructions Encounter Date Encounter Id Patient Instructions Last Modified By Organization Details Last Modified Time 08/10/2023 [id number] risk assessment* [email or web address] Not availabl e 08/10/2023 11:56:50 INFLUENZA VACCIN E Recommended today, but patient declined Ordered Patient will get at local pharmacy/health department TD/TDAP Recommended today, patient declined Ordered Patient will get at local pharmacy/health department PNEUMONIA VACCINE Ordered Recommend ed today, patient declined Patient will get at local pharmacy/health department SHINGLES Ordered Recommend ed today, patient declined Patient will get at local pharmacy/health department MAMMOGRAM: Last Mammogram __ DEXA SCAN CERVICAL SCREENING/PELVIC EXAMINATION COLORECTAL SCREENING: Last Colonoscopy No screening necessary patient is up to date DEPRESSION SCREENING Negative BMI Overweight continue your current weight loss efforts try to lose 5% of your body weight try to lose 10% of your body weight NUTRITION PHYSICAL ACTIVITY Need more exercise/physical activity VISION ALCOHOL USE No alcohol use TOBACCO USE non smoker LUNG CANCER SCREENING Non Smoker-not indicated SEXUALLY ACTIVE HEPATITIS C SCREENING GLUCOSE SCREENING Ordered Not needed LIPID SCREENING Ordered Not needed [email or web address] Not available 08/10/2023 10:19:35 Reason for Referral None Reported. Results Created Date Observation Date Name Description Value Unit Range Abnormal Flag Note LastModifiedBy Organization Detail LastModifiedTime 10/19/1910/18/2021 HEMOG LOBIN A1C HA1C 7.0 % 4.0-6. 0 high Diabe marin Dina greene Crite norma: <5.7% Consi stent with absen ce of diabe marin 5.7-6 .4% Consi stent with incre ased risk for diabe marin (pred iabet es) >OR=6 .5% Consi stent with diabe marin REFER ENCE: Diabe marin Care 2016, 39(Harden ppl.1 ):s13 -s22 Not Available [facility] (Lab) [address] [place], [address], 10/18/2021 19:54:12 07/24/19 24 07/21/2023 XR, chest , 2 view No observ ation record ed. [facility] ([facility] Sched[facility]) [address] [place], [address], 07/24/2023 11:09:18 07/31/19 24 07/28/2023 CT, chest , w/o contr ast No observ ation record ed. [email or web address] [facility] [address], [place], [address], 08/04/2023 14:34:26 Result Notes None recorded. Problems Name Problem SNOMED Code Status Onset Date Resolution Date Notes Provider Name and Address Organization Details Recorded Time Injury of hand 679097496 Completed Not Available [facility] 3 02:55:33 Asthma 390954343 Active Not Available [facility] 3 19:06:50 Closed Colles' fracture 237019150 Completed Not Available [facility] 3 02:55:33 Anemia 641741947 Active 2021 Not Available [facility] 3 19:06:50 Screening for osteoporos is Completed 202212/26/2022 VALENTINO Lombardo null, [facility] [employer] [facility] 3 09:54:50 Finding of body mass index 783045562 Active 2021 Not Available [facility] 3 19:06:50 Goiter 1798255 Active 2020 Not Available [facility] 3 19:06:50 Obesity 340049188 Active Not Available [facility] 3 19:06:50 History of polyp of colon 039093190 Active Not Available [facility] 3 19:06:50 Anxiety 96197227 Active 2020 Not Available [facility] 3 19:06:50 Hyperlipid emia 79301658 Active Not Available [facility] 3 19:06:50 Essential hypertensi on 99864554 Active Not Available [facility] 3 19:06:50 Osteoporos is 91963011 Active 2019 Not Available [facility] 3 19:06:50 Diabetes mellitus 45443430 Active Not Available [facility] 3 19:06:50 Hyperglyce gucci 28709492 Completed Not Available [facility] 3 02:55:34 Iron deficiency anemia 69069446 Active 2020 Not Available [facility] 3 19:06:50 Standard chest X-ray abnormal 323149677 Active 2023 KASSANDRA Dennison, [facility] [employer] [facility] 4 09:56:35 Problem Notes None recorded. Procedures Surgical History Date Name Laterality Status Provider Name and Address Organization Details Recorded Time Tubal Ligation completed Not Available [facility] 09/07/2022 02:48:31 Colonoscopy completed Not Available [facility] 09/07/2022 02:48:31 Imaging Results Imaging Date Name Status LastModified by Organiz ation Details LastModified Time 07/21/2023 XR, chest, 2 view completed [facility] ([facility] Sched[facility]) [address] [place], [address], 07/24/2023 11:09:18 07/28/2023 CT, chest, w/o contrast completed [email or web address] [facility] [address], [place], [address], 08/04/2023 14:34:26 Procedure Notes None recorded. Medical Equipment None Reported. Medications Name Sig Start Date Stop Date Status Note LastModified by Organization Details LastModified Time metformin 500 mg tablet TAKE 2 TABLETS BY MOUTH TWICE A DAYNEED S APPT FOR FURTHER REFILLS 2023 active Not Available Not Available Not Avai lable ipratropium 0.5 mg-albutero l 3 mg (2.5 mg base)/3 mL nebulizatio n soln Inhale 1 mL every 4-6 hours by nebulizat ion route as needed. active Not Available Not Available No t Available atorvastati n 10 mg tablet TAKE 1 TABLET BY MOUTH EVERY DAY 2023 active KRISTOPHER 4 NOV // 4 ok to rf Not Available Not Available Not Available alendronate 70 mg tablet TAKE 1 TABLET BY MOUTH ONE TIME PER WEEK. NEEDS APPT FOR FURTHER REFILLS active Not Available Not Available No t Available lorazepam 0.5 mg tablet Take 1 tablet every day by oral route as needed. active Not Available Not Available No t Available montelukast 10 mg tablet TAKE 1 TABLET BY MOUTH EVERY DAY NEEDS APPT FOR FURTHER REFILLS 2023 active Not Available Not Available Not Avai lable hydrochloro thiazide 25 mg tablet TAKE 1 TABLET BY MOUTH EVERY DAYNEED S APPT FOR FURTHER REFILLS 2023 active Not Available Not Available Not Avai lable albuterol sulfate HFA 90 mcg/actuati on aerosol inhaler INHALE 2 PUFFS BY MOUTH EVERY 4 HOURS NEEDEDN EEDS APPT FOR FURTHER REFILLS 2023 active Not Available Not Available Not Avai lable Vitamin D2 1,250 mcg (50,000 unit) capsule Take 1 capsule every week by oral route for 90 days. 03/17 completed Not Available Not Available Not Available lisinopril 40 mg tablet TAKE 1 TABLET BY MOUTH EVERY DAYNEED S APPT FOR FURTHER REFILLS 2023 active Not Available Not Available Not Avai lable Flovent HFA 110 mcg/actuati on aerosol inhaler 12/11 completed Not Available Not Available Not Available esomeprazol e magnesium 05/29 completed Not Available Not Available Not Available Symbicort 160 mcg-4.5 mcg/actuati on HFA aerosol inhaler INHALE 2 PUFFS TWICE DAILY 09/24 completed Not Available Not Available Not Available budesonide- formoterol HFA 80 mcg-4.5 mcg/actuati on aerosol inhaler INHALE 2 PUFFS BY MOUTH TWICE A DAY 08/15 completed Not Available Not Available Not Available Twinrix (PF) 720 CHRISTIE unit-20 mcg/mL intramuscul ar syringe ADM 1ML IM UTD 10/16 completed Not Available Not Available Not Available Fluvirin 0242-4905 45 mcg (15 mcg x 3)/0.5 mL intramuscul ar suspension ADM 0.5ML UTD active Not Available Not Available No t Available Fluvirin (PF) 45 mcg(15 mcg x3)/0.5 mL intramuscul ar syringe ADM 0.5ML IM UTD 10/16 completed Not Available Not Available Not Available Afluria Quad (PF) 60 mcg (15 mcg x 4)/0.5 mL IM syringe ADM 0.5ML IM UTD 10/16 completed Not Available Not Available Not Available Afluria Qd 2018- (36 mos up)(PF)60 mcg (15 mcg x4)/0.5 mL IM syringe active Not Available Not Available N ot Available Flucelvax Quad (PF) 60 mcg (15 mcg x 4)/0.5 mL IM syringe active Not Available Not Available N ot Available Vitals Date Recorded Body height Body mass index (BMI) Body weight Body temperature Heart rate Oxygen saturation Oxygen saturation in Arterial blood by Pulse oximetry Systolic blood pressure Diastolic blood pressure Provider Name and Address Organization Details Last Updated DateTime 3 165.1 cm 33.1 kg/m2 81703.8 8 g 97.6 [degF] 102 /min 98 % 98 % 120 mm[Hg] 66 mm[Hg] VALENTINO Corrigan [place] [employer] 3 09:57:32 Date Recorded Body height Body mass index (BMI) Body weight Body temperature Heart rate Oxygen saturation Oxygen saturation in Arterial blood by Pulse oximetry Systolic blood pressure Diastolic blood pressure Provider Name and Address Organization Details Last Updated DateTime 4 165.1 cm 32.1 kg/m2 03271.3 3 g 97.6 [degF] 95 /min 98 % 98 % 140 mm[Hg] 80 mm[Hg] VALENTINO Corrigan [place] [facility] [place] [employer] [facility] 4 09:28:00 Date Recorded Body mass index (BMI) Body height Oxygen saturation Oxygen saturation in Arterial blood by Pulse oximetry Heart rate Body weight Systolic blood pressure Diastolic blood pressure Provider Name and Address Organization Details Last Updated DateTime 2 33.6 kg/m2 165.1 cm 98 % 98 % 93 /min 17906.6 6 g 110 mm[Hg] 70 mm[Hg] Not Available [facility] 3 02:53:24 Date Recorded Body mass index (BMI) Body height Oxygen saturation Oxygen saturation in Arterial blood by Pulse oximetry Heart rate Body weight Systolic blood pressure Diastolic blood pressure Provider Name and Address Organization Details Last Updated DateTime 2 32.6 kg/m2 165.1 cm 99 % 99 % 85 /min 27162.1 g 114 mm[Hg] 70 mm[Hg] Not Available [facility] 3 02:53:24 Date Recorded Body mass index (BMI) Body height Oxygen saturation Oxygen saturation in Arterial blood by Pulse oximetry Heart rate Body temperature Body weight Systolic blood pressure Diastolic blood pressure Provider Name and Address Organization Details Last Updated DateTime 3 32.4 kg/m2 165.1 cm 97 % 97 % 83 /min 96.8 [degF] 99994.5 1 g 122 mm[Hg] 80 mm[Hg] Not Available [facility] 3 02:53:24 Social History Question Answer Notes LastModified by Organizat ion Details LastModified Time Tobacco Smoking Status Never Smoker Not Available [facility] 09/07/2022 02:46:04 Do You Have An Advance Directive? No [id number] Information not available 09/07/2022 What Is Your Level Of Alcohol Consumption? Moderate Weekends MIGRATION.[id number] Information not available 09/07/2022 What Is Your Level Of Caffeine Consumption? Moderate [id number] Information not available 09/07/2022 How Much Tobacco Do You Chew? None MIGRATION.[id number] Information not available 09/07/2022 In The 14 Days Before Symptom Onset, Have You Had Close Contact With A Laboratory-confir med COVID-19 While That Case Was Ill? No MIGRATION.[id number] Information not available 09/07/2022 In The 14 Days Before Symptom Onset, Have You Had Close Contact With A Person Who Is Under Investigation For COVID-19 While That Person Was Ill? No MIGRATION.[id number] Information not available 09/07/2022 What Type Of Diet Are You Following? REGULAR MIGRATION.[id number] 0612 Information not available 09/07/2022 Which Illicit Or Recreational Drugs Have You Used? 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 01/28/2021 MIGRATION.[id number] 7929 Information not available 09/07/2022 What Is Your Relationship Status? MIGRATION.[id number] 6247 Information not available 09/07/2022 Do You Use Your Seat Belt Or Car Seat Routinely? Yes MIGRATION.[id number] 7547 Information not available 09/07/2022 Do You Have Smoke And Carbon Monoxide Detectors In Your Home? Yes MIGRATION.191388 8620 Information not available 09/07/2022 Do You Feel Stressed (tense, Restless, Nervous, Or Anxious, Or Unable To Sleep At Night)? [id number] MIGRATION.094509 6710 Information not available 09/07/2022 Do You Use Any Illicit Or Recreational Drugs? No MIGRATION.736714 5252 Information not available 09/07/2022 Do You Use Sunscreen Routinely? Yes MIGRATION.247645 0295 Information not available 09/07/2022 Has Tobacco Cessation Counseling Been Provided? No MIGRATION.390840 5502 Information not available 09/07/2022 Have You Recently Traveled Abroad? No MIGRATION.367047 4752 Information not available 09/07/2022 Do You Or Have You Ever Used Any Other Forms Of Tobacco Or Nicotine? No MIGRATION.124037 5012 Information not available 09/07/2022 Sex: Female Functional Status Question Answer Note LastModified by Organizat ion Details LastModified Time What is your exercise level? Occasional [id number] Information not available 09/07/2022 Mental Status None recorded. Family History Relationship Description Onset Age of this Age Resolved Age Notes LastModified by Organization Details LastModified Time Father Heart disease [id number] Not available 09/07/2022 02:48:35 Mother Essential hypertension MIGRATION.989 [id number] Not available 09/07/2022 02:48:35 Mother Leukemia MIGRATION.105 [id number] Not available 09/07/2022 02:48:35 Mother Depressive disorder MIGRATION.432 [id number] Not available 09/07/2022 02:48:35 Maternal Grandmother Essential hypertension MIGRATION.327 [id number] Not available 09/07/2022 02:48:35 Sister Diabetes mellitus MIGRATION.000 [id number] Not available 09/07/2022 02:48:35 Sister Depressive disorder MIGRATION.017 [id number] Not available 09/07/2022 02:48:35 Sister Kidney disease MIGRATION.146 [id number] Not available 09/07/2022 02:48:35 Medical History No medical history recorded. Gynecological HistoryNo gynecological history recorded. Obstetrics History GPAL:G 0 P 0 0 0 0 Immunizations Vaccine Type Date Status Note Provider Nam e and Address Organization Details Recorded Time TST-PPD intradermal 4 completed VALENTINO Osorio, [place] [employer] 07/27/2023 08:21:50 Influenza, split virus, quadrivalent, preservative 9 completed Not Available [facility] 04/25/2023 19:06:51 SARS-COV-2 (COVID-19) vaccine, UNSPECIFIED 1 completed Not Available [facility] 04/25/2023 19:06:51 SARS-COV-2 (COVID-19) vaccine, UNSPECIFIED 1 completed Not Available [facility] 04/25/2023 19:06:51 Influenza, split virus, quadrivalent, preservative 0 completed Not Available [facility] 04/25/2023 19:06:51 Influenza, split virus, quadrivalent, preservative 7 completed Not Available [facility] 04/25/2023 19:06:51 Influenza, split virus, quadrivalent, preservative 8 completed Not Available [facility] 04/25/2023 19:06:51 Hep A-Hep B, pediatric/adolesc ent 8 completed Not Available [facility] 04/25/2023 19:06:51 Influenza, split virus, trivalent, PF 8 completed Not Available [facility] 04/25/2023 19:06:51 Influenza, split virus, quadrivalent, PF 1 completed Not Available [facility] 04/25/2023 19:06:51 Past Encounters Encounter ID Performer Location Encounter Start Date Encounter Closed Date Diagnosis/Indication Diagnosis SNOMED-CT Code Diagnosis ICD10 Code Diagnosis Note [id number] [facility] [address] [place] [address] 09/28/2020 00:00:00 09/28/2020 17:07:20 [id number] [facility] [address] [place] [address] 01/28/2021 00:00:00 01/28/2021 09:54:34 [id number] _ATHENA_M IGRATION_ DEFAULT_1 _1 , 02/24/2021 00:00:00 02/24/2021 14:47:39 [id number] [facility] [address] [place] [address] 06/01/2021 00:00:00 06/01/2021 10:58:21 [id number] [facility] [address] [place] [address] 10/18/2021 00:00:00 10/18/2021 17:06:30 [id number] [facility] [address] [address] 02/16/2022 00:00:00 02/16/2022 09:53:26 [id number] [facility] [address] [address] 08/02/2022 00:00:00 08/02/2022 16:38:59 [id number] Cameron Acuña MD [facility] Internal [facility] [address] [place] [address] 12/26/2022 09:51:14 12/26/2022 10:29:45 Diabetes mellitus 09668451 E11.9 under good control Essential hypertension 57601855 I10 stable Asthma 491768388 J45.90 9 stable, no steroid inhaler needed Hyperlipidemia 51517873 E78.5 under control Obesity 917321044 E66.9 advised to lose weight Goiter 9626888 E04.9 s/p neg biopsy 05/2019 Anxiety 49547526 F41.9 under control Osteoporosis 62409050 M8 1.0 on meds since 04/28 Anemia 890697391 D64.9 on OTC iron Adult heal th examination 380584806 Z00.00 Colonoscop y- 03/2021Mam [address]- 2020- [employer]- [place]- 05/2020, orderedPne umovax- Had 1 yrs agoFLU- 2COV ID- #1- 09/06/20, #2- 09/27/20, booster Screening mammography 24 727566 Z12.31 Screening for osteoporosis 562126173 Z13.820 Long-term drug therapy 388997590 Z79.678 [id number] Cameron Acuña MD [facility] Internal Med [address] [place] [address] 08/10/2023 09:16:26 08/10/2023 10:04:00 Exposure to tuberculosis 5527377214 101 Z20.1 pt has no symptoms, no treatment needed,BEATRIZ P TAKING PRECAUTION S Adult heal th examination 408168411 Z00.00 Colonoscop y- 03/2021Mam [address]- 2020- [employer]- [place]- 05/2020, orderedPne umovax- Had 1 yrs agoFLU- 2COV ID- #1- 09/06/20, #2- 09/27/20, booster Depression screening 171 774730 Z13.31 Health Concerns Section Related Observation LastModified by Organization Detai ls LastModified Time None Recorded Concern Status LastModified by Organization Details LastModified Time None Recorded Advance Directives Directive N: Payers Encounter Date Sequence Insurance Name Policy Number Policy Buchanan Covered Member ID Buchanan Member ID Guarantor Name 12/26/2022 1 [facility] [id number] Serene Feliciano [id number] 1 Serene Feliciano 08/10/2023 1 [facility] [id number] Serene Feliciano [id number] 1 Serene Feliciano Notes Date Note Type Note Provider Name and Address Organization Details Recorded Time 12/26/2022 text/html Doing fine, compliant to medications, no side affects, here for follow up.DM- accu checks 156 this morning, A1C -6.3 usually higher in the mornings but nl in eveningNo hypoglycemia, No neuropathyDM eye exam- 2020, getting it soonMeds- metformin 1000 mg bidHTN--stable with meds,Meds- hctz 25 mg qd, lisinopril 40 mg qd,Hyperlipidemia- stable labsMeds- atorvastatin 10 mg qdAsthma- controlled with meds and inhalersMeds- montelukast 10 mg qd, Albuterol inhaler as needed and uses her NebulizerObesity- trying to loseAnxiety is better, mood is fineMeds- lorazepam 0.5 mg qd prn , has not taken for long times/p thyroid biopsy.. benign 05/28Osteoporosis- DEXA- 05/2020Meds- alendronate 70 mg weekly since 04/28Anemia- Hb was 11.1, nl colonoscopy 02/27, low iron, taking iron pills Cameron Acuña MD [address], [address], [place], [address], [employer] 12/26/2022 10:27:38 08/10/2023 text/html Pt is here today to discuss radiology results.Pt had a CT chestPt boy friend diag with TB recently and in isolation at her house, getting treatment.no fever, cough, sob, cp or night time sweating.He cxr showed right sided density, CT chest showed old scarring, recent TB test was neg Cameron Acuña MD [address], [address], [place], [address], [employer] 08/10/2023 11:57:02 OBGyn Episode No OBEpisode recorded.
--- OUTSIDE RECORDS SUMMARY | 2024-10-31 13:23 | XMS_ITS | Clinical Summary ---
Author Organization [facility] Address [facility] [place] [address] Care Team Providers Care Pe Teacher Name Role Phone Jocelyne Blair MD Primary Care Provider + Allergies No known active allergies Medications ipratropium-albute rol (DUONEB) 0.5-2.5 (3) MG/3ML Solution Inhale 1 mL every 4-6 hours by nebulization route as needed. Active calcium carb-cholecalcifer ol (CALTRATE+D) 600-10 MG-MCG Tab tablet 2 tablets daily. Active Iron, Ferrous Sulfate, 325 (65 Fe) MG Tab Take 1 tablet by mouth daily. Active vitamin D3 (CHOLECALCIFEROL) 25 mcg tablet Take 1 tablet (25 mcg total) by mouth daily. 4000U daily Active hydroCHLOROthiazid e (HYDRODIURIL) 25 MG tabletIndications: Essential hypertension Take 1 tablet (25 mg total) by mouth daily. 90 tablet 1 10/12/19 25 025 Active lisinopril (PRINIVIL) 30 MG tabletIndications: Essential hypertension Take 1 tablet (30 mg total) by mouth daily. 90 tablet 1 10/12/19 25 025 Active esomeprazole (NEXIUM) 20 MG capsuleIndications :Gastroesophageal reflux disease without esophagitis Take 1 capsule (20 mg total) by mouth every morning before breakfast. 90 capsule 1 10/12/19 25 025 Active budesonide-formote rol (SYMBICORT) 160-4.5 MCG/ACT inhalerIndications :Mild intermittent asthma without complication (HHS/HCC) Inhale 2 puffs into the lungs 2 (two) times daily. 10.2 g 3 10/12/19 25 Active atorvastatin (LIPITOR) 40 MG tabletIndications: Mixed hyperlipidemia Take 1 tablet (40 mg total) by mouth daily. 90 tablet 1 10/12/19 25 025 Active alendronate (FOSAMAX) 70 MG tabletIndications: Age-related osteoporosis without current pathological fracture Take 1 tablet (70 mg total) by mouth every 7 days. 12 tablet 3 10/12/19 25 Active albuterol sulfate HFA 108 (90 Base) MCG/ACT inhalerIndications :Mild intermittent asthma without complication (HHS/HCC) Inhale 2 puffs into the lungs every 6 (six) hours as needed for Wheezing. 18 g 3 10/12/19 25 Active metFORMIN (GLUCOPHAGE) 500 MG tabletIndications: Type 2 diabetes mellitus without complication, without long-term current use of insulin ([facility] HHS/HCC) Take 2 tablets (1,000 mg total) by mouth 2 (two) times daily. 360 tablet 1 10/12/19 25 025 Active montelukast (SINGULAIR) 10 MG tabletIndications: Mild intermittent asthma without complication (HHS/HCC) Take 1 tablet (10 mg total) by mouth daily. 90 tablet 1 10/12/19 25 025 Active dulaglutide (TRULICITY) 0.75 MG/0.5ML injectionIndicatio ns:Type 2 diabetes mellitus without complication, without long-term current use of insulin ([facility] HHS/HCC) Inject 0.75 mg into the skin once a week. 6 mL 1 10/15/19 25 025 Active albuterol sulfate HFA 108 (90 Base) MCG/ACT inhaler INHALE 2 PUFFS BY MOUTH EVERY 4 HOURS NEEDEDNEEDS APPT FOR FURTHER REFILLS 05/01/20 24 025 Discontin ued(Reord er) alendronate (FOSAMAX) 70 MG tablet 1 tablet (70 mg total). 025 Discontin ued(Reord er) atorvastatin (LIPITOR) 40 MG tablet Take 1 tablet (40 mg total) by mouth daily. 10/01/19 25 025 Discontin ued(Reord er) budesonide-formote rol (SYMBICORT) 160-4.5 MCG/ACT inhaler Inhale 2 puffs into the lungs 2 (two) times daily. 05/15/20 24 025 Discontin ued(Reord er) hydroCHLOROthiazid e (HYDRODIURIL) 25 MG tablet Take 1 tablet (25 mg total) by mouth daily. 025 Discontin ued(Reord er) lisinopril (PRINIVIL) 40 MG tablet Take 1 tablet (40 mg total) by mouth daily. 025 Discontin ued(Reord er) metFORMIN (GLUCOPHAGE) 500 MG tablet Take 2 tablets (1,000 mg total) by mouth 2 (two) times daily. 025 Discontin ued(Reord er) montelukast (SINGULAIR) 10 MG tablet Take 1 tablet (10 mg total) by mouth daily. 025 Discontin ued(Reord er) esomeprazole (NEXIUM) 20 MG capsule Take 1 capsule (20 mg total) by mouth every morning before breakfast. 025 Discontin ued(Reord er) semaglutide (OZEMPIC, 0.25 OR 0.5 MG/DOSE,) 2 MG/3ML injection (PEN)Indications:D iabetes Mellitus Inject 0.25 mg into the skin every 7 days for 7 days, THEN 0.5 mg every 7 days for 60 days. Indications: Diabetes. 6.4 mL 10/12/19 25 025 Discontin ued(Formu rebecca change) Active Problems Problem Noted Date Diagnosed Date Mild intermittent asthma without complication (H HS/HCC) 10/11/2024 Overview (10/11/2024): Takes symbicort, singulair and albuterol. Weather triggers symptoms. Uses albuterol daily or weekly. Essential hypertension 10/11/2024 Overview (10/11/2024): Takes HCTZ and lisinopril. Typically 120/70s. Home readings 100s/60s. Assessment & Plan (10/11/2024 2:25 PM CDT): Chronic. Actually hypotensive currently. Continue hydrochlorothiazide but reduce lisinopril to 30 mg daily. Request she update me if blood pressures remain 100s systolic as we would likely reduce her lisinopril further. History of colonic polyps 10/11/2024 Type 2 diabetes mellitus wit hout complication, without long-term current use of insulin ([facility]) 10/11/2024 Overview (10/11/2024): Diagnosed years ago. Last A1c 6.2% about 4 months ago. Currently taking metformin. Has not been offered any other medication regimen. Sees eye doctor in [place]. She is not aware of any complications from her diabetes. Assessment & Plan (10/11/2024 2:26 PM CDT): Will order A1c to confirm she remains controlled. Continue metformin. Will trial Ozempic for improved management. We did discuss risk and benefits of this medication including risks that we may not be aware of yet. She is interested in a trial of this. May be able to eliminate metformin in the future. Ordered urine microalbumin. Requested diabetic eye exam. Foot exam today. Mixed hyperlipidemia 10/11/2024 Overview (10/11/2024): Takes lipitor 40 mg daily. Assessment & Plan (10/11/2024 2:25 PM CDT): Will check CMP and lipid panel to establish level of control. Continue Lipitor. GERD (gastroesophageal reflux disease) Overview (10/11/2024): Takes nexium. Bad symptoms if she skips a dose. Assessment & Plan (10/11/2024 2:23 PM CDT): Chronic. Benefit outweigh risk of long-term use. Continue Nexium. Iron deficiency anemia 02/03/2021 Anxiety 09/28/2020 Goiter 09/28/2020 Overview (10/11/2024): Found a couple nodules in 2020. Had biopsy and it was reassuring. Osteoporosis 05/14/2020 Overview (10/11/2024): Takes alendronate. Has been taking it since maybe 2020. DEXA scheduled in December. Saw Dr. Acuña through [facility]. Assessment & Plan (10/11/2024 2:27 PM CDT): Will obtain record for last DEXA scan. Suspect she requires a alendronate hiatus for a year or 2 since she has been on the medication for possibly 5 years. Await bone scan results and will discuss this further at her physical follow-up. Continue alendronate for now. Encounters Date Type Department Care Team Description 10/31/2024 SpringCMt Message Enc [address] [place] [address] Jocelyne Blair MD X-Ray 10/31/2024 Orders Only [address] [place] [address] Lidia Marvin LPN 10/30/2024 Results Follow-Up [address] [place] [address] Susana Carreno NP HEMOGLOBIN, GLYCOSYLATED, COMPREHENSIVE METABOLIC PANEL, LIPID PANEL, Additional followed-up results: 4 10/30/[address] [place] [address] Jocelyne Blair MD Record Request 10/18/2024 eBureau Message Enc [address] [place] [address] Jocelyne Blair MD [facility] 10/14/[address] [place] [address] Jocelyne Blair MD Medication Request 10/14/[address] [place] [address] Jocelyne Blair MD Record Request 10/11/2024 1:50 PM CDT Office Visit [address] [place] [address] Jocelyne Blair MD New Patient (Here to get established. She has DM and wants to discuss this. Her last A1C was 4 mosl 6.2 ) 10/11/2024 Travel 10/01/2024 Scan [facility] SRVCS Scanned, Doc Med Group Mammogram (SCAN) 09/02/2024 8:12 PM BAR TENDER - 09/02/2024 11:04 PM BAR TENDER Emergency [facility] [place] [address] Aisha Nielsen PA Abdominal Pain Discharge Disposition: Home or Self Care (Routine Discharge) 09/02/2024 Travel from Last 3 Months Immunizations Immunization Administration Dates Next Due COVID-19 Vaccine (Generic) 09/27/2020,09/06/2020 FLUCELVAX (ccIIV3, TRIVALENT, 0.5mL) 05/25/2024 Hepatitis A/Hepatitis B(Twinrix) 04/24/2018 Influenza (Generic) 04/26/2017,04/24/2014,2007 Influenza Adult (Generic) 07/26/2022,,04/21/2020,2018,04/24/2018,04/29/2017 Family History Medical History Relation Comments Heart Disease Father Hypertension Father Arthritis Maternal Grandmother Cancer Mother Depression Mother Mental Health Mother Diabetes Sister Relation Status Comments Father Maternal Grandmother Mother Sister Social History Tobacco Use Types Packs/Day Years Used Date Smoking Tobacco: Never Passive Smoke Exposure: Past Smokeless Tobacco: Never Tobacco Cessation:Counseling Given: No Alcohol Use Standard Drinks/Week Comments Yes 1.7 (1 standard drink = 0.6 oz p ure alcohol) occ PHQ-2 Answer Date Recorded Patient Health Questionnaire-2 Score 0 10/11/2024 Comments No Sex and Gender Information Value Date Recorded Sex Assigned at Female 09/02/2024 7:31 PM BAR TENDER Legal Sex Female 7:10 PM BAR TENDER Gender Identity Not on file Sexual Orientation Not on file Last Filed Vital Signs Vital Sign Reading Time Taken Comments Blood Pressure 123/71 10/11/2024 1:20 PM CDT Pulse 96 10/11/2024 1:20 PM CDT Temperature 36.6 C (97.8 F) 10/11/2024 1:20 PM CDT Respiratory Rate 16 09/02/2024 7:14 PM BAR TENDER Oxygen Saturation 100% 10/11/2024 1:20 PM CDT Inhaled Oxygen Concentration - - Weight 86.5 kg (190 lb 12.8 oz) 10/11/2024 1:20 PM CDT Height 163.8 cm (5' 4.5 ) 10/11/2024 1:20 PM CDT Body Mass Index 32.24 10/11/2024 1:20 PM CDT Plan of Treatment Upcoming Encounters Date Type Department Care Team (Late st Contact Info) Description 01/13/2025 2:40 PM CDT Office Visit [facility] [place] [address] [place] [phone] Jocelyne Blair MD [address] [place], [place] [id number] Health Maintenance Due Date Last Done Comments Annual Physical 1963 Diabetes: Retinopathy Eye Exam 10/23/1979 Hepatitis C 10/23/1979 DTaP, Tdap and Td Vaccines (1 - Tdap) 1980 Pneumococcal Vaccine: 50+ Years (1 of 2 - PCV) 1980 Zoster Vaccines (1 of 2) 10/23/2011 RSV Immunization or 60+ Years (1 - Risk 60-74 years 1-dose series) 2021 Hemoglobin A1C 04/26/2025 10/25/2024 Kidney Health Evaluation 10/25/2025 10/25/2024 Lipid Panel 10/25/2025 10/25/2024 Mammogram Screening 10/01/2026 10/01/2024 Colorectal Cancer Screening Colonoscopy (10 Years) 03/29/2031 03/29/2021 COVID-19 Vaccine Completed 05/25/2024, , 07/05/2021, Additional history exists PHQ-2 (Physician [place]) Completed 10/11/2024 Meningococcal B Vaccine Aged Out No l onger eligible based on patient's age to complete this topic Meningococcal Vaccine Aged Out No daren fox eligible based on patient's age to complete this topic RSV Immunizations Under 20 Months Aged Out No longer eligible based on patient's age to complete this topic Procedures Procedure Name Priority Date/Time Associated Diagnosis Comments QUANTIFERON - TB GOLD PLUS, 1T Routine 10/25/2024 7:22 AM CDT VITAMIN B-12 Routine 10/25/2024 7:22 AM CDT CBC W/DIFF AUTOMATED Routine 10/25/2024 7:22 AM CDT ALBUMIN URINE RANDOM W/CREATININE Today 10/25/2024 7:22 AM CDT Type 2 diabetes mellitus without complication, without long-term current use of insulin ([facility] HHS/[facility]) LIPID PANEL Today 10/25/2024 7:22 AM CDT Mixed hyperlipidemia COMPREHENSIVE METABOLIC PANEL Today 10/25/2024 7:22 AM CDT Essential hypertension HEMOGLOBIN, GLYCOSYLATED Today 10/25/2024 7:22 AM CDT Type 2 diabetes mellitus without complication, without long-term current use of insulin ([facility]) MAMMOGRAM GENERIC (SCAN ORDER) 10/01/2024 CT ABD+PEL W CON STAT 09/02/2024 9:11 PM BAR TENDER LIPASE STAT 09/02/2024 7:28 PM BAR TENDER COMPREHENSIVE METABOLIC PANEL STAT 09/02/2024 7:28 PM BAR TENDER CBC W/DIFF AUTOMATED STAT 09/02/2024 7:28 PM BAR TENDER COLONOSCOPY GENERIC (SCAN ORDER) 03/29/2021 from Last 3 Months or Most Recently Relevant to Health Maintenance Results * (ABNORMAL) QUANTIFERON - TB GOLD PLUS, 1T (10/25/2024 7:22 AM CDT) [facility] TB QUANTIFERON POSITIVE( A) NEGATIVE 3sun [facility] Comment: In healthy persons who have a low likelihood of M. tuberculosis infection, a single positive QFT result should not be taken as reliable evidence of M. tuberculosis infection. Repeat testing, with either the initial test or a different test, may be considered on a [id number] basis. NIL (TB) 0.03 IU/mL [facility] MITOGEN NIL 7.00 IU/mL [facility] TB1 AG MINUS NIL 0.39 IU/mL [facility] TB2 AG MINUS NIL 0.40 IU/mL [facility] Comment: The Nil tube value reflects the background interferon gamma immune response of the patient's blood sample. This value has been subtracted from the patient's displayed TB and Mitogen results. Lower than expected results with the Mitogen tube prevent false-negative Quantiferon readings by detecting a patient with a potential immune suppressive condition and/or suboptimal pre-analytical specimen handling. The TB1 Antigen tube is coated with the M. tuberculosis-specific antigens designed to elicit responses from TB antigen primed CD4+ helper T-lymphocytes. The TB2 Antigen tube is coated with the M. tuberculosis-specific antigens designed to elicit responses from TB antigen primed CD4+ helper and CD8+ cytotoxic T-lymphocytes. For additional information, please refer to https://education.[employer]/faq/NEX883 (This link is being provided for informational/ educational purposes only.) 10/25/2024 7:22 AM CDT 10/25/2024 7:26 AM CDT Narrative 3sun [facility] - 10/30/2024 12:35 PM CDT FASTING:YES FASTING: YES Resulting Agency Comment Performing Organization Information: Site ID: [place] Name: [facility] Address: [address] [place] [address] Director: Mary Ann Juares MD us Jocelyne Blair MD LABORATORY Final Re sult [facility] [place] [facility] [facility] [address] [place] [address], [place] * (ABNORMAL) HEMOGLOBIN, GLYCOSYLATED (10/25/2024 7:22 AM CDT) [facility] HGB A1C 6.5(H) <5.7 % of total Hgb [facility] [place] Comment: For someone without known diabetes, a hemoglobin A1c value of 6.5% or greater indicates that they may have diabetes and this should be confirmed with a follow-up test. For someone with known diabetes, a value <7% indicates that their diabetes is well controlled and a value greater than or equal to 7% indicates suboptimal control. A1c targets should be individualized based on duration of diabetes, age, comorbid conditions, and other considerations. Currently, no consensus exists regarding use of hemoglobin A1c for diagnosis of diabetes for children. 10/25/2024 7:22 AM CDT 10/25/2024 7:26 AM CDT Narrative [facility] - [place] ORDERS - 10/30/2024 12:35 PM CDT FASTING:YES FASTING: YES Resulting Agency Comment Performing Organization Information: Site ID: [place] [facility]: [facility] Address: [address] [place] [phone] Director: Mary Ann Juares us Jocelyne Blair MD LABORATORY Final Re sult [facility] [employer] [address] [address], * VITAMIN B-12 (10/25/2024 7:22 AM CDT) [facility] VITAMIN B12 S/P/B 310 200 - 1,100 pg/mL [facility] Comment: Please Note: Although the reference range for vitamin B12 is 200-1100 pg/mL, it has been reported that between 5 and 10% of patients with values between 200 and 400 pg/mL may experience neuropsychiatric and hematologic abnormalities due to occult B12 deficiency; less than 1% of patients with values above 400 pg/mL will have symptoms. 10/25/2024 7:22 AM CDT 10/25/2024 7:26 AM CDT Narrative [facility] - [place] [facility] - 10/30/2024 12:35 PM CDT FASTING:YES FASTING: YES Resulting Agency Comment Performing Organization Information: Site ID: [id number] Name: [facility] Address: [address] [place] [phone] Director: Mary Ann Juares MD us Jocelyne Blair MD LABORATORY Final Re sult Performing Organization Address [facility] Co de Phone Number FILI ELIZABETH [facility] [address] [place] [address], [place] * ALBUMIN URINE RANDOM W/CREATININE (10/25/2024 7:22 AM CDT) CREATININE RANDOM (U) 42 20 - 275 mg/dL 3sun [facility] MICROALBUMIN (U) 0.5 See Note: mg/dL 3sun [facility] Comment: Reference Range: Reference Range Not established MICROALB/CREAT 12 <30 mg/g creat 3sun [facility] Comment: The ADA defines abnormalities in albumin excretion as follows: Albuminuria Category Result (mg/g creatinine) Normal to Mildly increased <30 Moderately increased 30-299 Severely increased > OR = 300 The ADA recommends that at least two of three specimens collected within a 3-6 month period be abnormal before considering a patient to be within a diagnostic category. URINE SPECIMEN / Unknown 10/25/2024 7:22 AM CDT 10/25/2024 7:26 AM CDT Narrative [facility] - [place]DERS - 10/30/2024 12:35 PM CDT FASTING:YES FASTING: YES Resulting Agency Comment Performing Organization Information: Site ID: [id number] Name: [facility] Address: [address] [place] [phone] Director: Mary Ann Juares MD us Jocelyne Blair MD URINE ORDERABLES Final R esult Performing Organization Address [facility]/ZIP Co de Phone Number FILI ELIZABETH [facility] [place] [phone] [facility] [place] [address], * (ABNORMAL) COMPREHENSIVE METABOLIC PANEL (10/25/2024 7:22 AM CDT) Only the most recent of2 resultswithin the time period is included. GLUCOSE 138(H) 65 - 99 mg/dL [place], [place] Comment: Fasting reference interval For someone without known diabetes, a glucose value >125 mg/dL indicates that they may have diabetes and this should be confirmed with a follow-up test. BUN 24 7 - 25 mg/dL [place] CREATININE S/P/B 0.77 0.50 - 1.05 mg/dL [place] GFR ESTIMATE 87 > OR = 60 mL/min/1. 73m2 [place] BUN CREATININE RATIO SEE NOTE: - (calc) [place] Comment: Not Reported: BUN and Creatinine are within reference range. SODIUM S/P/B 133(L) 135 - 146 mmol/L [place] POTASSIUM S/P/B 3.8 3.5 - 5.3 mmol/L [place] CHLORIDE S/P/B 98 98 - 110 mmol/L [place] CO2 27 20 - 32 mmol/L [place] CALCIUM S/P/B 9.2 8.6 - 10.4 mg/dL [place] TOTAL PROTEIN S/P/B 6.5 6.1 - 8.1 g/dL [place] ALBUMIN S/P/B 4.2 3.6 - 5.1 g/dL [place] GLOBULIN 2.3 1.9 - 3.7 g/dL (calc) [place] ALBUMIN/GLOBULIN RATIO 1.8 1.0 - 2.5 (calc) [place] BILIRUBIN TOTAL S/P/B 0.3 0.2 - 1.2 mg/dL [place] ALKALINE PHOSPHATASE S/P/B 49 37 - 153 U/L [place] AST 15 10 - 35 U/L [place] ALT 14 6 - 29 U/L [place] 10/25/2024 7:22 AM CDT 10/25/2024 7:26 AM CDT Narrative [facility] - [place] [facility] - 10/30/2024 12:35 PM CDT FASTING:YES FASTING: YES Resulting Agency Comment Performing Organization Information: Site ID: [place] Name: [facility] Address: [address] [place] [address] Director: Mary Ann Juares Jocelyne Blair MD LABORATORY Final Re sult [facility] [place] [address] [address] [facility] [place] [address], * LIPID PANEL (10/25/2024 7:22 AM CDT) CHOLESTEROL 149 <200 mg/dL [facility] [place] HDL 62 > OR = 50 mg/dL [place] TRIGLYCERIDES 99 <150 mg/dL [place] LDL (CALCULATED) 69 mg/dL (calc) [place] Comment: Reference range: <100 Desirable range <100 mg/dL for primary prevention; <70 mg/dL for patients with CHD or diabetic patients with > or = 2 CHD risk factors. LDL-C is now calculated using the Ronnie-Sreekanth calculation, which is a validated novel method providing better accuracy than the Friedewald equation in the estimation of LDL-C. Ronnie SS et al. ADRIÁN. 2013;310(19): 3128-0257 (http://education.[employer]/faq/ZRS622) CHOL/HDL RATIO 2.4 <5.0 (calc) [place] NON HDL CHOLESTEROL 87 <130 mg/dL (calc) [facility] Comment: For patients with diabetes plus 1 major ASCVD risk factor, treating to a non-HDL-C goal of <100 mg/dL (LDL-C of <70 mg/dL) is considered a therapeutic option. 10/25/2024 7:22 AM CDT 10/25/2024 7:26 AM CDT Narrative [facility] [place] - 10/30/2024 12:35 PM CDT FASTING:YES FASTING: YES Resulting Agency Comment Performing Organization Information: Site ID: [place] Name: [facility] Address: [address] [place] [address] Director: Mary Ann Juares us Jocelyne Blair MD LABORATORY Final Re sult [facility] [place], [place] [address] [place] [address], [place] * (ABNORMAL) CBC W/DIFF AUTOMATED (10/25/2024 7:22 AM CDT) Only the most recent of2 resultswithin the time period is included. WBC 7.4 3.8 - 10.8 Thousand/u L [place] RBC 3.89 3.80 - 5.10 Million/uL [place] HGB 11.5(L) 11.7 - 15.5 g/dL [place] HCT 35.7 35.0 - 45.0 % [place] MCV 91.8 80.0 - 100.0 fL [place] MCH 29.6 27.0 - 33.0 pg [place] MCHC 32.2 32.0 - 36.0 g/dL [place] Comment: For adults, a slight decrease in the calculated MCHC value (in the range of 30 to 32 g/dL) is most likely not clinically significant; however, it should be interpreted with caution in correlation with other red cell parameters and the patient's clinical condition. RDW 12.1 11.0 - 15.0 % [place] PLT 263 140 - 400 Thousand/u L [place] MPV 9.2 7.5 - 12.5 fL [place] ABS. NEUTROPHILS 4,277 1,500 - 7,800 cells/uL [place] ABS. LYMPHOCYTES 2,213 850 - 3,900 cells/uL [place] ABS. MONOCYTES 348 200 - 950 cells/uL [place] ABS. EOSINOPHILS 533(H) 15 - 500 cells/uL [place] ABS. BASOPHILS 30 0 - 200 cells/uL [place] SEG NEUTROPHILS 57.8 % [facility] [place] LYMPHOCYTES 29.9 % [place] MONOCYTES 4.7 % [place] EOSINOPHILS 7.2 % [place] BASOPHILS 0.4 % [place] 10/25/2024 7:22 AM CDT 10/25/2024 7:26 AM CDT Narrative [facility] - [place] - 10/30/2024 12:35 PM CDT FASTING:YES FASTING: YES Resulting Agency Comment Performing Organization Information: Site ID: [place] Name: [facility] Address: [facility] [place] [address] Director: Mary Ann Juares Jocelyne Blair MD LABORATORY Final Re sult [facility] [place] [facility] [address] [address], [place] * MAMMOGRAM GENERIC (SCAN ORDER) (10/01/2024) Anatomical Region Laterality Modality Other 10/01/2024 us Doc [facility] Scanned SCANNING Final Resu lt * CT ABD+PEL W IV CON ONLY (09/02/2024 9:11 PM BAR TENDER) Anatomical Region Laterality Modality Abdomen Computed Tomogra phy 09/02/2024 9:15 PM BAR TENDER Impressions 09/02/2024 9:19 PM BAR TENDER IMPRESSION: 1. No definite acute abnormalities identified in the abdomen or pelvis. 2. Diverticulosis. 3. Nonspecific haziness within the small bowel mesentery ( ashley mesentery ) and small mesenteric lymph nodes. 4. Atherosclerosis. 5. Small hiatal hernia. 6. Please see above for additional chronic, incidental, and nonemergent findings elsewhere. Referred By: Interpreted By: Dmitry Hayes MD, 09/02/2024 9:15 PM Narrative 09/02/2024 9:19 PM BAR TENDER [address] [address] EXAMINATION: CT Abdomen and Pelvis with contrast CLINICAL HISTORY: Left lower quadrant pain. Vomiting. COMPARISON: None TECHNIQUE: Computed tomography of the abdomen and pelvis was obtained after administration of intravenous contrast, 100 mL of Isovue-370, without immediate complication according to routine protocol. A dose lowering technique was used for this procedure, which may include, but is not limited to, dose reduction technique, automated exposure control, the use of iterative reconstruction, and ALARA (As Low As Reasonably Achievable) / Image Gently techniques. FINDINGS: Imaged portions of the lower chest reveal a small hiatal hernia. Possible gallbladder sludge., Spleen, pancreas, and adrenal glands are unremarkable. Scattered bilateral renal cortical thinning/scarring. No hydronephrosis or hydroureter. Atherosclerotic calcifications noted along the abdominal aorta and its branches. Nonspecific haziness within the small bowel mesentery with scattered small mesenteric lymph nodes. No retroperitoneal lymphadenopathy. Stomach and small bowel loops are nondilated. Appendix not well visualized. Scattered solid feces in the colon. No findings of bowel obstruction. No free fluid or free air in the abdomen. Small fat-containing umbilical hernia. Sigmoid diverticulosis. Bladder underdistended. Uterus is atrophic or absent. No pelvic ascites. Pelvic vascular calcifications. No bulky pelvic or inguinal lymphadenopathy. Degenerative changes noted in the spine. Procedure Note Dmitry Hayes MD - 09/02/[address] [id number] EXAMINATION: CT Abdomen and Pelvis with contrast CLINICAL HISTORY: Left lower quadrant pain. Vomiting. COMPARISON: None TECHNIQUE: Computed tomography of the abdomen and pelvis was obtainedafter administration of intravenous contrast, 100 mL of Isovue-370,without immediate complication according to routine protocol. A dose lowering technique was used for this procedure, which may include,but is not limited to, dose reduction technique, automated exposurecontrol, the use of iterative reconstruction, and ALARA (As Low AsReasonably Achievable) / Image Gently techniques. FINDINGS: Imaged portions of the lower chest reveal a small hiatal hernia. Possible gallbladder sludge., Spleen, pancreas, and adrenal glands areunremarkable. Scattered bilateral renal cortical thinning/scarring. Nohydronephrosis or hydroureter. Atherosclerotic calcifications noted alongthe abdominal aorta and its branches. Nonspecific haziness within thesmall bowel mesentery with scattered small mesenteric lymph nodes. Noretroperitoneal lymphadenopathy. Stomach and small bowel loops are nondilated. Appendix not wellvisualized. Scattered solid feces in the colon. No findings of bowelobstruction. No free fluid or free air in the abdomen. Smallfat-containing umbilical hernia. Sigmoid diverticulosis. Bladder underdistended. Uterus is atrophic orabsent. No pelvic ascites. Pelvic vascular calcifications. No bulky pelvicor inguinal lymphadenopathy. Degenerative changes noted in the spine. IMPRESSION: 1. No definite acute abnormalities identified in the abdomen or pelvis. 2. Diverticulosis. 3. Nonspecific haziness within the small bowel mesentery ( mistymesentery ) and small mesenteric lymph nodes. 4. Atherosclerosis. 5. Small hiatal hernia. 6. Please see above for additional chronic, incidental, and nonemergentfindings elsewhere. Referred By: Interpreted By: Dmitry Hayes MD, 09/02/2024 9:15 PM us [facility] CT Final Resul t * LIPASE (09/02/2024 7:28 PM BAR TENDER) LIPASE 34 13 - 75 UNITS/L 09/02/2024 8:50 PM BAR TENDER [facility] 09/02/2024 7:28 PM BAR TENDER [facility] Final Resul t [facility] [address] [place] [address], [place] [phone] * COLONOSCOPY GENERIC (SCAN ORDER) (03/29/2021) 03/29/2021 [facility] Scanned SCANNING Final Resu lt from Last 3 Months or Most Recently Relevant to Health Maintenance Insurance [facility] Care Teams Pe Teacher Relationship Specialty Start Date End Date Jocelyne Blair MD [id number] [place] [id number] PCP - General FAMILY PRACTICE 09/11/24
--- OUTSIDE RECORDS SUMMARY | 2024-10-31 13:23 | XMS_ITS | Data Portability ---
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 Patient will come back in a year unless there are new symptoms. [email or web address] Not available 02/06/2024 14:21:22 Plan of Treatment Reminders Order Date Submit Date Provider Last Modified By Organization Details Last Modified Time Details Appointments None recorded. Lab None recorded. Referral None recorded. Procedures None recorded. Surgeries None recorded. Imaging MAMMO, screening, digital, bilateral 2023 024 [facility], [address], [place], [address], 05:01:23 Medication Orders None recorded. Patient TargetsNo targets recorded. Patient InstructionsNo instructions recorded. Reason for Referral None Reported. Results Created Date Observation Date Name Description Value Unit Range Abnormal Flag Note LastModifiedBy Organization Detail LastModifiedTime 02/06/20 24 02/06/2024 IMAGE GUIDE D PAP AND HPV REGAR DLESS image guided Pap, HPV regardless of Pap result SEE RESULT S BELOW CASE REPOR T: Cytol ogy Gynec ologi lobito Repor t Case: [id number] Autho shalonda g Provi bess: Arely Taylor NP Colle cted: 02/05 1607 Order ing Locat ion: [place] Patho brooke Recei zachary: 02/06 0128 First Scree n: Leny Martinez ret, CT Speci men: Dina greene Pap - Image d, Cervi x STATE MENT OF ADEQU ACY: Satis facto ry for evalu ation ----- ----- ----- ----- ----- ----- ----- ----- ----- ----- ----- ----- ----- ----- ----- ----- ----- ---- FINAL DIAGN OSIS: Negat janice for Intra epith elial Lesio susie or Cleo ruiz ([facility]) . Elect lindasaida suazo d by Leny Martinez ret, CT on 024 at 7:11 AM ----- ----- ----- ----- ----- ----- ----- ----- ----- ----- ----- ----- ----- ----- ----- ----- ----- ---- HPV RESUL TS: HPV mRNA E6/E7 : No HPV mRNA Detec shasha NOTE: This high risk HPV mRNA assay detec ts fourt een high- risk HPV types (16, 18, 31, 33, 35, 39, 45, 51, 52, 56, 58, 59, 66, 68) witho ut diffe renti ation . COMME NT: This speci men was revie wed by a Cytot echno logis t and/o r Patho logis t (as indic ated in this repor t) after evalu ation using the Thinp rep Imagi ng Syste m. CLINI LOBITO INFOR MATIO N: Menst rual Statu s: LMP (if appli cable ): Clini lobito Histo ry/Pr eviou s Pap: Type of Neopl regi (if appli cable ): Signi sunshine t Clini lobito Findi ngs: Other Histo ry: Hormo jim (if appli cable ): PAP EDUCA COLTON L NOTE: The Pap Test is a scree ramona test with an inher ent false negat janice rate. Liqui d-bas ed sampl ing may decre ase, but will not elimi familia, false negat janice resul ts. A negat janice resul t does not precl ude the prese nce and/o r devel opmen t of disea se, since the prese nce of abnor mal cells in the sampl e depen ds on the locat ion of the lesio n and sampl ing techn ique. Jaylene nued regul ar scree ramona is the best metho d of cance r preve ntion . If repor shasha cytol ogic findi ng do not corre late with physi lobito and/o r histo rical findi ngs, furth er inves tigat ion is recom melly d, as clini rylee momin nted. Not Available [facility] (Lab) [address], [place], [address], 02/13/2024 08:16:49 10/03/19 25 10/01/2024 MAMMO , scree ramona, digit al, bilat eral No observ ation record ed. [address] [facility] [address], [place], [address], 10/08/2024 18:29:57 10/04/19 25 10/01/2024 MAMMO , scree ramona, digit al, bilat eral No observ ation record ed. [address] [facility] [address], [place], [address], 10/08/2024 18:29:58 10/31/19 25 10/30/2024 imagi ng/di agnos tic resul t No observ ation record ed. [facility] [address], [place], [address], 10/30/2024 11:40:42 Result Notes None recorded. Problems Name Problem SNOMED Code Status Onset Date Resolution Date Notes Provider Name and Address Organization Details Recorded Time Hypercholester olemia [id number] [facility] 3 10:07:01 Abnormal urinalysis [id number] [facility] 3 10:07:01 Asthma [id number] [facility] 3 10:07:01 Incomplete uterovaginal prolapse [id number] [facility] 3 10:07:01 Hypertensive disorder 83670105 [facility] 3 10:07:01 Midline cystocele [id number] [facility] 3 10:07:01 Female stress incontinence 36638009 [facility] 3 10:07:01 Diabetes mellitus [id number] [facility] 3 10:07:01 Urgent desire to urinate [id number] [facility] 3 10:07:01 Problem Notes None recorded. Procedures Surgical History Date Name Laterality Status Provider Name and Address Organization Details Recorded Time 06/09/20 23 Hysteroscopy completed [facility] 02/06/2024 16:45:28 06/09/20 23 procedure on urinary bladder completed [facility] 02/06/2024 16:45:48 11/24/19 23 DILATION AND CURETTAGE WITH HYSTEROSCOPY (SURG) completed Val [facility] 11/24/2022 10:31:33 04/11/20 23 Date of Last Pap Smear completed Graciela Yolis [facility] 06/19/2023 09:51:49 LEEP completed Milla Carbajal [facility] 02/06/2024 16:45:21 supracervical hysterectomy completed Arely Taylor, [facility] [address], [place], [address], [facility] 02/06/2024 16:50:40 Imaging Results Imaging Date Name Status LastModified by Organiz ation Details LastModified Time 10/01/2024 MAMMO, screening, digital, bilateral completed [email or web address] [facility] [address], [place], [address], 10/08/2024 18:29:57 10/01/2024 MAMMO, screening, digital, bilateral completed [address] [facility] [address], [place], [address], 10/08/2024 18:29:58 10/30/2024 imaging/diagno stic result active [facility] [address], [place], [address], 10/30/2024 11:40:42 Procedure Notes None recorded. Medical Equipment None Reported. Allergies No known drug allergies Medications Name Sig Start Date Stop Date Status Note LastModified by Organization Details LastModified Time atorvastatin 40 mg tablet TAKE 1 TABLET BY MOUTH EVERY DAY active Not Available Not Available No t Available metformin 500 mg tablet TAKE 2 TABLETS BY MOUTH TWICE A DAY active Not Available Not Available No t Available atorvastatin 10 mg tablet TAKE 1 TABLET BY MOUTH EVERY DAY 02/05 completed Not Available Not Available Not Available Iron (ferrous sulfate) 325 mg (65 mg iron) tablet (325 mg (65 mg iro) active Not Available Not Available No t Available hydrocodone 5 mg-acetamino phen 325 mg tablet TAKE 1 TABLET BY MOUTH EVERY 6 HOURS NEEDED FOR PAIN 02/05 completed Not Available Not Available Not Available alendronate 70 mg tablet TAKE 1 TABLET BY MOUTH ONE TIME PER WEEK. NEEDS APPT FOR FURTHER REFILLS active Not Available Not Available No t Available Nexium 20 mg capsule,halima yed release (20 mg) active Not Available Not Available Not Available docusate sodium 100 mg capsule TAKE 1 CAPSULE BY MOUTH TWICE A DAY active Not Available Not Available No t Available montelukast 10 mg tablet TAKE 1 TABLET BY MOUTH EVERY DAY NEEDS APPT FOR FURTHER REFILLS* * active Not Available Not Available No t Available hydrochlorot hiazide 25 mg tablet TAKE 1 TABLET BY MOUTH EVERY DAY active Not Available Not Available No t Available albuterol sulfate HFA 90 mcg/actuatio n aerosol inhaler INHALE 2 PUFFS BY MOUTH EVERY 4 HOURS NEEDED active Not Available Not Available No t Available lisinopril 40 mg tablet TAKE 1 TABLET BY MOUTH EVERY DAY active Not Available Not Available No t Available budesonide-f ormoterol HFA 160 mcg-4.5 mcg/actuatio n aerosol inhaler INHALE 2 PUFFS BY MOUTH TWICE A DAY active Not Available Not Available No t Available Vitamin D3 50 mcg (2,000 unit) tablet (50 mcg (2,000 uni) active Not Available Not Available No t Available Vitals Date Recorded Body height Body mass index (BMI) Body weight Systolic blood pressure Diastolic blood pressure Provider Name and Address Organization Details Last Updated DateTime 04/21/2023 162.56 cm 34.2 kg/m2 46526.88 g 130 mm[Hg] 77 mm[Hg] [facility] 3 10:06:48 Date Recorded Body height Body mass index (BMI) Body weight Systolic blood pressure Diastolic blood pressure Provider Name and Address Organization Details Last Updated DateTime 06/07/2023 162.56 cm 34.2 kg/m2 71676.88 g 141 mm[Hg] 81 mm[Hg] [facility] 3 16:37:42 Date Recorded Body height Body mass index (BMI) Body weight Systolic blood pressure Diastolic blood pressure Provider Name and Address Organization Details Last Updated DateTime 06/19/2023 162.56 cm 34.7 kg/m2 75927.66 g 120 mm[Hg] 73 mm[Hg] [facility] 3 09:50:40 Date Recorded Body height Body mass index (BMI) Body weight Systolic blood pressure Diastolic blood pressure Provider Name and Address Organization Details Last Updated DateTime 02/06/2024 162.56 cm 33.1 kg/m2 23528.33 g 123 mm[Hg] 80 mm[Hg] Milla Carbajal [facility] 4 16:43:07 Social History Question Answer Notes LastModified by Organizat ion Details LastModified Time Tobacco Smoking Status Never Smoker Halie Calderon brijesh, [facility] 06/19/2023 09:32:55 What Is Your Level Of Alcohol Consumption? Occasional Information not available 10/18/2022 Are You Blind Or Do You Have Difficulty Seeing? No Information not available 10/18/2022 What Is Your Level Of Caffeine Consumption? Heavy Information not available 10/31/2022 In The 14 Days Before Symptom Onset, Have You Had Close Contact With A Laboratory-confir med COVID-19 While That Case Was Ill? No Information not available 10/31/2022 In The 14 Days Before Symptom Onset, Have You Had Close Contact With A Person Who Is Under Investigation For COVID-19 While That Person Was Ill? No Information not available 10/31/2022 Have You Been To An Area Known To Be High Risk For COVID-19? No Information not available 10/31/2022 Are You Deaf Or Do You Have Serious Difficulty Hearing? No Information not available 10/18/2022 What Type Of Diet Are You Following? DIABETIC Information not available 10/31/2022 What Is The Highest Grade Or Level Of School You Have Completed Or The Highest Degree You Have Received? 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 No Information not available 10/31/2022 Do You Use Protection During Sex? No Information not available 10/31/2022 Do You Use Your Seat Belt Or Car Seat Routinely? Yes Information not available 10/31/2022 Do You Have Smoke And Carbon Monoxide Detectors In Your Home? Yes Information not available 10/31/2022 How Much Tobacco Do You Smoke? No Information not available 10/31/2022 Do You Feel Stressed (tense, Restless, Nervous, Or Anxious, Or Unable To Sleep At Night)? [id number] Information not available 10/31/2022 Do You Use Any Illicit Or Recreational Drugs? No Information not available 10/31/2022 Do You Use Sunscreen Routinely? Yes Information not available 10/31/2022 Have You Used IV Drugs? No Information not available 10/31/2022 Sex: Unknown Functional Status Question Answer Note LastModified by Organizat ion Details LastModified Time Do you have difficulty walking or climbing stairs? No [email or web address] Information not available 06/19/2023 Are you able to walk? YESWOREST Information not available 10/18/2022 Are you able to care for yourself? Yes Information not available 06/19/2023 Do you have difficulty dressing or bathing? No [email or web address] Information not available 06/19/2023 What is your exercise level? Occasional Information not available 10/31/2022 Mental Status None recorded. Family History Relationship Description Onset Age of this Age Resolved Age Notes LastModified by Organization Details LastModified Time Mother Leukemia [email or web address] Not availabl e 02/06/2024 16:34:31 Brother Heart disease [email or web address] Not available 2022 09:32:54 Sister Diabetes mellitus [email or web address] Not available 2022 09:32:54 Medical History Condition Response Allergies (Food, seasonal, environmental ) N Other N Breast Cancer N Drug/Latex Allergies/Reactions N Blood Transfusion N Dermatologic Disorders N Lung Disease N Defects or Inherited Disease N Breast Problem N Gestational Diabetes N Hematologic disorders N Anesthesia Complications N History of STI N Deep Vein Thrombosis N Polycystic ovary syndrome N Anxiety Disorder N Autoimmune disease N Arthritis N Infertility N Polyps N Acid Reflux (GERD) N History of abnormal pap N Cancer N Stroke N Varicosities N Neurologic/Epilepsy N Endometriosis N High Cholesterol Y Headaches N Fibromyalgia N Kidney Disease N Heart Problems N Kidney or Bladder Problems N Thyroid Problems N GI Problems N Eating Disorder N Anemia Y Art (IVF or FET) N Psychiatric Illness N Ovarian Cancer N Diabetes Y Pulmonary (TB, Asthma) N Hepatitis/Liver Disease N No Past Medical History N Eczema N Urinary Tract Infection N Abuse/Domestic Violence N Asthma Y Trauma/Violence N Depression/ depression N Heart Disease N Pre-Eclampsia N Hypertension Y Osteoporosis Y Thrombophilias N Gynecological History Statement/Question Response Abnormal Pap Y Date of Last Mammogram On BCP's at Conception? N Y Was last menstrual period normal Y STIs/STDs N HPV Vaccine N Colposcopy Duration of Flow (days) 3 Current Control Method Hysterectom y If Post Menopausal, Age at Menopause 49 Date of Last Colonoscopy Frequency of Cycle (Q days) 3 Sexually Active? Y Date of DEXA bone scan Age of first menstrual cycle 15 Date of Last Pap Smear 10/18/2022 Sexual Problems? N LMP Unknown N Obstetrics History GPAL:G 2 P 0 0 0 2 Type Value Living 2 Total 2 Past Encounters Encounter ID Performer Location Encounter Start Date Encounter Closed Date Diagnosis/Indication Diagnosis SNOMED-CT Code Diagnosis ICD10 Code Diagnosis Note [id number] CLAUDE Jade [facility] [address] [address] 10/18/2022 16:25:35 10/19/2022 16:48:19 Postmenopausal bleeding 92744828 N95.0 discussed postmenopa usal bleeding and need for further evaluation pap updated, STI testing declinedpe lvic u/s ordered, encouraged to scheduledd iscussed need for further testing pending u/s - cervix appears very stenotic, may not be able to do EMB in officewill f/u with once u/s complete Time spent in visit is a total of 30 mins with at least 50% of visit consisting of counseling and review of plan of care. Uterine prolapse [id number] 5 N81.4 [id number] Roberta Olsen [facility] [address] [address] 10/20/2022 17:07:35 10/21/2022 12:38:44 Postmenopausal bleeding 62153622 N95.0 [id number] Matthew Mccarthy MD [facility] [address] [address] 10/31/2022 16:21:10 10/31/2022 18:13:12 Postmenopausal bleeding 60063494 N95.0 this patient is a 62-year-ol d female who presents for postmenopa usal bleeding. she has a thickened irregular endometriu m. We talked about these findings. Talked about the significan ce of postmenopa usal bleeding. She was given informatio n on endometria l cancer and its nature. We agreed that the endometriu m had to be evaluated. We attempted endometria l biopsy today in the office. Her cervical os is scarred down and atrophic and cannot be penetrated . She will need dissection of the cervix. I informed that we would be required to do this in the operating room. Was explained the procedure the patient in detail. We agreed to proceed with hysterosco py D&C in the operating room. Spent over 40 minutes face-to-fa ce , made decision to perform a surgical procedure. more than 50% of our meeting was counseling . [id number] Mena Story [facility] [address],[facility] [place] [address] 11/24/2022 10:18:34 11/24/2022 10:20:38 [id number] Matthew Mccarthy MD [facility] [address],[place] [address] 12/01/2022 16:33:53 12/06/2022 14:43:44 Prolapse of female genital organs 56484330 N81.9 62-year-ol d female with pelvic organ prolapse. We discussed pelvic organ prolapse treatment. Discussed her options in detail. We discussed the details of a pessary. We discussed details of the surgery. We spent over 20 minutes face-to-fa ce. More than% was counseling . Recovering from the hysterosco py. Polyps were removed. She has had some bleeding afterward. She is willing to observe the bleeding declined any treatment at this time. She will follow up on this as needed. Polyp of corpus uteri 11 329888 N84.0 [id number] Matthew Mccarthy MD [facility] [address],[place] [address] 12/21/2022 16:37:14 12/21/2022 17:55:53 Prolapse of female genital organs 63831261 N81.9 62-year-ol d female who presents with pelvic organ prolapse. She was evaluated previously . We agreed to fit a pessary today. She was fitted with a 2-1/2 inch ring with support. . She does not feel a. She is tolerating well. I believe will stay in. It was snug but did not apply pressure. [id number] Matthew Mccarthy MD [facility] [address],[place] [address] 01/26/2023 17:09:03 01/26/2023 22:58:11 [id number] Matthew Mccarthy MD [facility] [address],[place] [address] 04/21/2023 09:41:59 04/21/2023 17:21:56 Prolapse of female genital organs 00809569 N81.9 62-year-ol d female who presents for follow-up on pelvic organ prolapse. She has met with Dr. Bashir. They have agreed to perform the sacral colpopexy. She needs hysterecto my in order to complete the sacral colpopexy. Talked about the procedure itself. Talked about risk. Talked about robotic surgery. We talked about recovery. We talked about Dr. Bashir procedure some. She has been scheduled for June 12. We will see her again 1 week before the surgery. We spent 20 minutes Face-to-fa ce and more than 50% was counseling . [id number] Matthew Mccarthy MD [facility] [address],[place] [address] 06/07/2023 16:25:46 06/08/2023 08:51:29 Prolapse of female genital organs 19516424 N81.9 this patient is a 62-year-ol d female who presents for pelvic organ prolapse. We have agreed to perform robotic assisted supracervi lobito hysterecto my with bilateral salpingo-o ophorectom y. This will be in conjunctio n with Dr. Bashir who will perform a sacral spinous ligament fixation. patient understand s the risks, benefits, and alternativ es. She is completed the informed consent process and is ready to proceed. [id number] Mena Story [facility] [address] [address] 06/15/2023 13:17:50 07/04/2023 07:30:31 [id number] Matthew Mccarthy MD [facility] [address] [address] 06/19/2023 09:32:09 06/19/2023 16:30:14 Postoperative care [id number] Z48.89 62-year-ol d female presents for postop follow-up. Underwent robotic supracervi lobito hysterecto my and sacral spinous ligament fixation. Has no complaints . Her incisions are clean dry and intact. Normal postoperat janice recovery. [id number] CLAUDE Jade [facility] [address] [address] 02/06/2024 16:34:26 02/06/2024 17:31:36 Gynecologic examination 26868033 Z01.419 WWEpostmen opausalpap updateddec lined STI screenmamm ogram order givendexa, managed through PCPcolonos copy UTDroutine labs UTD/PCP Do monthly self breast exams. It is advised to get annual flu shot in the fall and she could obtain at local pharmacy. If you haven't received the Tdap vaccine in the last 10 years you should obtain one as well. Have mammogram yearly, bone density every 2-3 years and stay up to date on colon cancer screening. Engage in regular exercise. Avoid tobacco and illicit drugs. If BMI greater than 25 dietary consult advised. Questions have been answered. Screening for malignant neoplasm of breast [id number] Z12.39 Health Concerns Section Related Observation LastModified by Organization Detai ls LastModified Time None Recorded Concern Status LastModified by Organization Details LastModified Time None Recorded Advance Directives Directive None Recorded Payers Encounter Date Sequence Insurance Name Policy Number Policy Buchanan Covered Member ID Buchanan Member ID Guarantor Name 04/21/2023 1 [facility] [id number] Serene Hassan Jodie [id number] 1 Serene Feliciano 06/07/2023 1 [facility] [id number] Serene Mo Valentineer [id number] 1 Serene Feliciano 06/12/2023 1 [facility] [id number] Serene Feliciano [id number] 1 Serene Feliciano 06/19/2023 1 [facility] [id number] Serene Feliciano [id number] 1 Serene Feliciano 02/06/2024 1 [facility] [id number] Serene Feliciano [id number] 1 Serene Feliciano Notes Date Note Type Note Provider Name and Address Organization Details Recorded Time 3 text/htm l 62-year-old female who presents for follow-up on pelvic organ prolapse. She has met with Dr. Bashir. They have agreed to perform the sacral colpopexy. She needs hysterectomy in order to complete the sacral colpopexy. Talked about the procedure itself. Talked about risk. Talked about robotic surgery. We talked about recovery. We talked about Dr. Bashir procedure some. She has been scheduled for June 12. We will see her again 1 week before the surgery. We spent 20 minutes Tjzd-bt-zgnm and more than 50% was counseling. Matthew Mccarthy MD [address], [place], [address], [facility] 04/21/2023 17:13:42 3 text/htm l this patient is a 62-year-old female who presents for pelvic organ prolapse. We have agreed to perform robotic assisted supracervical hysterectomy with bilateral salpingo-oophorectomy. This will be in conjunction with Dr. Bashir who will perform a sacral spinous ligament fixation. The patient understands the procedure. The procedure was described to the patient in great detail. the patient also understands the risks. The risks were also explained in detail. She understands that injuries May occur during surgery. She understands these injuries can result in hospitalization, more surgery, and severe illness. She understands there is risk of hemorrhage and infection. Matthew Mccarthy MD [address], [place], [address], [facility] 06/07/2023 20:08:59 3 text/htm l 62-year-old female presents for postop follow-up. Underwent robotic supracervical hysterectomy and sacral spinous ligament fixation. Has no complaints. Her incisions are clean dry and intact. Normal postoperative recovery. Matthew Mccarthy MD [address], [place], [address], [facility] 06/19/2023 15:35:36 4 text/htm l Annual Aesthetician Post-MenopausalReported bypatient.Menopausal Symptoms:no menopausal symptoms; normal vaginal lubrication Vaginal Bleeding:history of menopause having occurred; no history of post menopausal bleeding Urinary Symptoms:no hematuria; no incontinence; no nocturia; no urinary frequency Vulva:no genital lesion; no vulvar atrophy Vagina:normal vaginal discharge; no vaginal atrophy Breast:no breast lump; no nipple discharge; no breast pain Sexual Complaints:no sexual complaints Psychological Symptoms:no depression; no anxiety Preventive Measures:encourage regular mammograms starting age 40; encourage self breast examination; encourage regular exercise; encourage no tobacco useNotes:63yo WWEh/o robotic supracervical hysterectomy with bilateral salpingo-oophorectomy and sacral spinous ligament fixation 3doing well, no issuesh/o LEEP in 2006last pap 10/2022 : nilm, HPV (-) mammogram - needs orderdexa - managed by PCP, on alendronatecolonoscopy UTD CLAUDE Jade [address], [place], [address], [facility] 02/06/2024 17:26:33 OBGyn Episode Ob Episode Information Episode Created Date Number of Fetuses Patient Bloodtype Patient rh Status Prepregnancy Weight lbs Domestic Partner Domestic Partner Phone Father 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 10/19/19 23 1 CLOSED Fetus Data First Name Last Name Admitted to NICU Weight (g) Sex Living Outcome Pediatric Complications Fetus ID Race Codes Race Delivery Type 3288.54 2 F Full Term [id number] Vaginal Delivery Andrew Calculation Initial Andrew Date Initial Exam Date Initial Exam Provider Initial Ultrasound Date Last Menstrual Period Date Ultra Sound Weeks Gestation 0 Eighteen To Twenty Week Andrew Update Ultra Sound Date Fundal Height At Umbil Quickening Date Ultra Sound Latest Weeks Gestation Final Andrew Confirmed By Final Andrew Confirmed Date Final Andrew Date Ultra Sound Latest Days Gestation 0 0 Menstrual History Last Menstrual Date Menses Monthly On Bcp Conception Prior Menses Frequency Hcg Plus Date Menarche Onset Age Delivery Information Delivery Date Delivery Type Labor Anesthesia Weeks Gestation Incision Type Labor Labor Length Hrs Delivered By Post Complications Tubal Sterilization Discharge Date Comments 4 Discharge Information Feeding Method Contraceptive Method Maternal HG B and HCT Levels Ob Episode Information Episode Created Date Number of Fetuses Patient Bloodtype Patient rh Status Prepregnancy Weight lbs Domestic Partner Domestic Partner Phone Father 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 10/19/19 23 1 CLOSED Fetus Data First Name Last Name Admitted to NICU Weight (g) Sex Living Outcome Pediatric Complications Fetus ID Race Codes Race Delivery Type 3345.24 1 M Full Term [id number] Vaginal Delivery Andrew Calculation Initial Andrew Date Initial Exam Date Initial Exam Provider Initial Ultrasound Date Last Menstrual Period Date Ultra Sound Weeks Gestation 0 Eighteen To Twenty Week Andrew Update Ultra Sound Date Fundal Height At Umbil Quickening Date Ultra Sound Latest Weeks Gestation Final Andrew Confirmed By Final Andrew Confirmed Date Final Andrew Date Ultra Sound Latest Days Gestation 0 0 Menstrual History Last Menstrual Date Menses Monthly On Bcp Conception Prior Menses Frequency Hcg Plus Date Menarche Onset Age Delivery Information Delivery Date Delivery Type Labor Anesthesia Weeks Gestation Incision Type Labor Labor Length Hrs Delivered By Post Complications Tubal Sterilization Discharge Date Comments 0 Discharge Information Feeding Method Contraceptive Method Maternal HG B and HCT Levels
--- OUTSIDE RECORDS SUMMARY | 2024-10-31 13:23 | XMS_ITS | Encounter Summary ---
Author Organization [facility] Address [address] [place] [address] Care Team Providers Care Eligibility Supervisor Name Role Phone Jocelyne Blair MD Primary Care Provider + Encounter Details Date Type Department Care Team ([facility] Contact Info) Description 10/31/2024 Orders Only [address] [place] [address] Lidia Marvin LPN Social History Tobacco Use Types Packs/Day Years Used Date Smoking Tobacco: Never Passive Smoke Exposure: Past Smokeless Tobacco: Never Alcohol Use Standard Drinks/Week Comments Yes 1.7 (1 standard drink = 0.6 oz p ure alcohol) occ PHQ-2 Answer Date Recorded Patient Health Questionnaire-2 Score 0 10/11/2024 Comments No Sex and Gender Information Value Date Recorded Sex Assigned at Female 09/02/2024 7:31 PM LINE MANAGER Legal Sex Female 7:10 PM LINE MANAGER Gender Identity Not on file Sexual Orientation Not on file documented as of this encounter Plan of Treatment Upcoming Encounters Date Type Department Care Team ([facility] Contact Info) Description 01/13/2025 2:40 PM CDT Office Visit [address] [place] [address] Jocelyne Blair MD [address] [place] [address] documented as of this encounter Visit Diagnoses Diagnosis Type 2 diabetes mellitus without complication, without long-term current use of insulin ([facility]/HCC) documented in this encounter Care Teams Eligibility Supervisor Relationship Specialty Start Date End Date Jocelyne Blair MD [address] [place] [address] PCP - General FAMILY PRACTICE 09/11/24 documented as of this encounter
== END 2024-10-31 12:08 | disposition home or self-care (01) ==
PROVIDERS: PCP Student in an Organized Health Care Education/Training Program; Visit Provider Nurse Practitioner
DX: Z11.1 Encounter for screening for respiratory tuberculosis (principal)
CPT/HCPCS: 71046

== ENCOUNTER 2025-01-06 14:36 | Outpatient (CLI) | payer OTHER, SELFPAY ==
--- NOTE | ~2025-01-06 | DEXA_ITS ---
Bone Density Report Name: ANNALEE CASTLE Age: 64 Sex: Female Ethnicity: White Date of : 1960 Indication: postmenopausal; screening for osteoporosis; height loss; asthma or emphysema; hysterectomy; Referring Provider: MICHELINE, BRENDA Mcmanus Study: Bone densitometry was performed. Exam Date: January 06, 2025 Accession number: [id number] Bone Density: Region BMD T-score Z-score Classification AP Spine(L1-L4) 0.772 -2.5 -0.9 Osteoporosis Femoral Neck (Left) 0.635 -1.9 -0.5 Osteopenia Total Hip (Left) 0.847 -0.8 0.3 Normal Femoral Neck (Right) 0.611 -2.1 -0.7 Osteopenia Total Hip (Right) 0.753 -1.5 -0.4 Osteopenia Total Hip Mean 0.800 -1.2 -0.1 Osteopenia World Health Organization criteria for BMD impression classify patients as: Normal (T-score at or above -1.0), Osteopenia (T-score between -1.0 and -2.5), or Osteoporosis (T-score at or below -2.5). 10-year Fracture Risk: FRAX not reported because: Some T-score for Spine Total or Hip Total or Femoral Neck at or below -2.5 Treated for osteoporosis Clinical Information Provided by Patient: Is being treated for osteoporosis Has used the following medications: Fosamax (i.e. alendronate), Vitamin D, Calcium Has the following medical conditions: Asthma or Emphysema, Hysterectomy Patient maximum height was 65 Menopause Age: 49 No regular weight bearing exercise Does not regularly consume dairy products Drinks caffeinated beverages Onset of menses at age 15 Number of children 2 Impression: The patient has osteoporosis, based on the Total Spine T-score. Discussion: It is important to ask patients whether they are taking their medications and to encourage continued and appropriate compliance with their osteoporosis therapies to reduce fracture risk. It is also important to review their risk factors and encourage appropriate calcium and vitamin D intakes, exercise, fall prevention and other lifestyle measures. Follow-Up: Consider a repeat BMD and Vertebral Fracture Assessment (VFA) exam in 2 years or sooner if medically necessary, to reassess this patient's status. Reported by: BERNIE on 01/06/2025 3:20:00 PM. Reviewed, dictated and finalized at location A.
--- OUTSIDE RECORDS SUMMARY | 2025-01-06 14:45 | XMS_ITS | Data Portability ---
Author Organization [place] [facility], Main Office Address [address] [place] [address] Assessment No assessment recorded. Plan of Treatment Reminders Order Date Submit Date Provider Last Modified By Organization Details Last Modified Time Details Appointments None recorded. Lab CMP, serum or plasma [address] [place], [address], 3 08:03:38 HbA1c (hemoglobi n A1c), blood [address], [address] [place], [address], 3 08:03:39 vitamin D, 25-hydroxy , total, serum [address], [address] [place], [address], 3 08:03:39 lipid panel, serum [address], [address] [place], [address], 3 08:03:39 ferritin, serum or plasma [address], [address] [place], [address], 3 08:03:39 iron + total iron-janet ng capacity (TIBC), serum [address], [address] [place], [address], 3 08:03:39 CBC w/ auto diff [address], [address] [place], [address], 3 08:03:39 Referral None recorded. Procedures None recorded. Surgeries None recorded. Imaging MAMMO, screening, digital, bilateral [address] (Imaging), [address] [place], [place] [address] [address] [place] [address], [phone], 3 08:02:55 DEXA [address] ([facility]), [address] [place] [address], [phone], 3 08:02:56 Medication Orders None recorded. Patient TargetsNo targets recorded. Patient Instructions Encounter Date Encounter Id Patient Instructions Last Modified By Organization Details Last Modified Time 08/10/2023 [id number] risk assessment* [email or web address] Not availabl e 08/10/2023 11:56:50 INFLUENZA VACCIN E Patient will get at local pharmacy/health department TD/TDAP Patient will get at local pharmacy/health department PNEUMONIA VACCINE Patient will get at local pharmacy/health department SHINGLES Patient will get at local pharmacy/health department MAMMOGRAM: Last Mammogram __ Recommended today DEXA SCAN Recommended today CERVICAL SCREENING/PELVIC EXAMINATION Recommended today COLORECTAL SCREENING: Last Colonoscopy No screening necessary patient is up to date DEPRESSION SCREENING Negative BMI Overweight try to lose 10% of your body weight NUTRITION EatHeart Healthy Diet PHYSICAL ACTIVITY Need more exercise/physical activity VISION No Eye exam necessary: Exam up to date ALCOHOL USE No alcohol use TOBACCO USE non smoker LUNG CANCER SCREENING Non Smoker-not indicated SEXUALLY ACTIVE HEPATITIS C SCREENING GLUCOSE SCREENING Not needed LIPID SCREENING Not needed [email or web address] Not available 08/10/2023 10:19:35 Reason for Referral None Reported. Results Created Date Observation Date Name Description Value Unit Range Abnormal Flag Note LastModifiedBy Organization Detail LastModifiedTime 10/19/19 22 10/18/2021 HEMOG LOBIN A1C HA1C 7.0 % 4.0-6. 0 high Diabe marin Dina greene Crite norma: <5.7% Consi stent with absen ce of diabe marin 5.7-6 .4% Consi stent with incre ased risk for diabe marin (pred iabet es) >OR=6 .5% Consi stent with diabe marin REFER ENCE: Diabe marin Care 2016, 39(Harden ppl.1 ):s13 -s22 Not Available [facility] (Lab) [address] [place], [address], 10/18/2021 19:54:12 07/24/19 24 07/21/2023 XR, chest , 2 view No observ ation record ed. [facility] ([facility]) [address] [place], [address], 07/24/2023 11:09:18 07/31/19 24 07/28/2023 CT, chest , w/o contr ast No observ ation record ed. [email or web address] [facility] [address], [place], [address], 08/04/2023 14:34:26 Result Notes None recorded. Problems Name Problem SNOMED Code Status Onset Date Resolution Date Notes Provider Name and Address Organization Details Recorded Time Injury of hand 741530624 Completed Not Available [facility] 3 02:55:33 Asthma 220791918 Active Not Available [facility] 3 19:06:50 Closed Colles' fracture 158447364 Completed Not Available [facility] 3 02:55:33 Anemia 544195447 Active 2021 Not Available [facility] 3 19:06:50 Screening for osteoporos is Completed 202212/26/2022 VALENTINO Lombardo, [place] - S [facility] [employer] [facility] 3 09:54:50 Finding of body mass index 528336282 Active 2021 Not Available [facility] 3 19:06:50 Goiter 7510768 Active 2020 Not Available [facility] 3 19:06:50 Obesity 672247776 Active Not Available [facility] 3 19:06:50 History of polyp of colon 796344828 Active Not Available [facility] 3 19:06:50 Anxiety 12691484 Active 2020 Not Available [facility] 3 19:06:50 Hyperlipid emia 95418478 Active Not Available [facility] 3 19:06:50 Essential hypertensi on 78099638 Active Not Available [facility] 3 19:06:50 Osteoporos is 85662494 Active 2019 Not Available [facility] 3 19:06:50 Diabetes mellitus 96931631 Active Not Available [facility] 3 19:06:50 Hyperglyce gucci 40380712 Completed Not Available [facility] 3 02:55:34 Iron deficiency anemia 67414004 Active 2020 Not Available [facility] 3 19:06:50 Standard chest X-ray abnormal 008818667 Active 2023 Taylor Quinn LPN null, [place] - [facility] [employer] [facility] 4 09:56:35 Problem Notes None recorded. Procedures Surgical History Date Name Laterality Status Provider Name and Address Organization Details Recorded Time Tubal Ligation completed Not Available [facility] 09/07/2022 02:48:31 Colonoscopy completed Not Available [facility] 09/07/2022 02:48:31 Imaging Results None recorded. Procedure Notes None recorded. Medical Equipment None [...] EVERY DAY 2023 active KRISTOPHER 4 NOV 4 ok to rf Not Available Not [...] Not Available Not Available Not Available Fluvirin 5637-3195 45 mcg (15 mcg x 3)/0.5 mL intramuscul ar suspension ADM 0.5ML UTD active Not Available Not Available No t Available Fluvirin 2538-0462 (PF) 45 mcg(15 mcg x3)/0.5 mL intramuscul ar syringe ADM 0.5ML IM UTD 10/16 completed Not Available Not Available Not Available Afluria Quad (PF) 60 mcg (15 mcg x 4)/0.5 mL IM syringe ADM 0.5ML IM UTD 10/16 completed Not Available Not Available Not Available Afluria Qd (36 mos up)(PF)60 mcg (15 mcg x4)/0.5 mL IM syringe active Not Available Not Available N ot Available Flucelvax Quad (PF) 60 mcg (15 mcg x 4)/0.5 mL IM syringe active Not Available Not Available N ot Available Vitals Date Recorded Body mass index (BMI) Body height Oxygen saturation Oxygen saturation in Arterial blood by Pulse oximetry Heart rate Body temperature Body weight Systolic blood pressure Diastolic blood pressure Provider Name and Address Organization Details Last Updated DateTime 3 32.4 kg/m2 165.1 cm 97 % 97 % 83 /min 96.8 [degF] 77261.5 1 g 122 mm[Hg] 80 mm[Hg] Not Available [facility] 3 02:53:24 Date Recorded Body height Body mass index (BMI) Body weight Body temperature Heart rate Oxygen saturation Oxygen saturation in Arterial blood by Pulse oximetry Systolic blood pressure Diastolic blood pressure Provider Name and Address Organization Details Last Updated DateTime 4 165.1 cm 32.1 kg/m2 43106.3 3 g 97.6 [degF] 95 /min 98 % 98 % 140 mm[Hg] 80 mm[Hg] VALENTINO Corrigan - S [employer] [facility] 4 09:28:00 Date Recorded Body mass index (BMI) Body height Oxygen saturation Oxygen saturation in Arterial blood by Pulse oximetry Heart rate Body weight Systolic blood pressure Diastolic blood pressure Provider Name and Address Organization Details Last Updated DateTime 2 33.6 kg/m2 165.1 cm 98 % 98 % 93 /min 85119.6 6 g 110 mm[Hg] 70 mm[Hg] Not Available [facility] 3 02:53:24 Date Recorded Body height Body mass index (BMI) Body weight Body temperature Heart rate Oxygen saturation Oxygen saturation in Arterial blood by Pulse oximetry Systolic blood pressure Diastolic blood pressure Provider Name and Address Organization Details Last Updated DateTime 3 165.1 cm 33.1 kg/m2 56642.8 8 g 97.6 [degF] 102 /min 98 % 98 % 120 mm[Hg] 66 mm[Hg] VALENTINO Corrigan [place] - [facility] [employer] 3 09:57:32 Date Recorded Body mass index (BMI) Body height Oxygen saturation Oxygen saturation in Arterial blood by Pulse oximetry Heart rate Body weight Systolic blood pressure Diastolic blood pressure Provider Name and Address Organization Details Last Updated DateTime 2 32.6 kg/m2 165.1 cm 99 % 99 % 85 /min 20917.1 g 114 mm[Hg] 70 mm[Hg] Not Available [facility] 3 02:53:24 Social History Question Answer Notes LastModified by Next 1 Interactive ion Details LastModified Time Tobacco Smoking Status Never Smoker Not Available [facility] 09/07/2022 02:46:04 Do You Have An Advance Directive? No [id number] Information not available 09/07/2022 What Is Your Level Of Caffeine Consumption? Moderate MIGRATION.[id number] 7733 Information not available 09/07/2022 How Much Tobacco Do You Chew? None MIGRATION.080838 0832 Information not available 09/07/2022 In The 14 Days Before Symptom Onset, Have You Had Close Contact With A Laboratory-confirm ed COVID-19 While That Case Was Ill? No MIGRATION.[id number] 2988 Information not available 09/07/2022 In The 14 Days Before Symptom Onset, Have You Had Close Contact With A Person Who Is Under Investigation For COVID-19 While That Person Was Ill? No MIGRATION.526011 0841 Information not available 09/07/2022 What Type Of Diet Are You Following? REGULAR MIGRATION.[id number] 7466 Information not available 09/07/2022 Which Illicit Or Recreational Drugs Have You Used? None MIGRATION.930623 7507 Information not available 09/07/2022 What Was The Date Of Your Most Recent Tobacco Screening? 01/28/2021 MIGRATION.[id number] 8323 Information not available 09/07/2022 What Is Your Relationship Status? MIGRATION.150476 3755 Information not available 09/07/2022 Do You Use Your Seat Belt Or Car Seat Routinely? Yes MIGRATION.300117 6254 Information not available 09/07/2022 Do You Have Smoke And Carbon Monoxide Detectors In Your Home? Yes MIGRATION.769311 1429 Information not available 09/07/2022 Do You Use Sunscreen Routinely? Yes MIGRATION.185752 6391 Information not available 09/07/2022 Has Tobacco Cessation Counseling Been Provided? No MIGRATION.879878 7470 Information not available 09/07/2022 Have You Recently Traveled Abroad? No MIGRATION.324586 2350 Information not available 09/07/2022 Sex: Female Functional Status Question Answer Note LastModified by [employer] Details LastModified Time Do you use any illicit or recreational drugs? No MIGRATION.866071 0476 Information not available 09/07/2022 Do you or have you ever used any other forms of tobacco or nicotine? No MIGRATION.085153 5331 Information not available 09/07/2022 What is your level of alcohol consumption? 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 Occasional MIGRATION.396698 6780 Information not available 09/07/2022 Mental Status Question Answer Note LastModified by [employer] ion Details LastModified Time Do you feel stressed (tense, restless, nervous, or anxious, or unable to sleep at night)? [id number] MIGRATION.[id number] 6 Information not available 09/07/2022 Family History Relationship Description Onset Age of this Age Resolved Age Notes LastModified by Organization Details LastModified Time Father Heart disease MIGRATION.629 [id number] Not available 09/07/2022 02:48:35 Mother Essential hypertension MIGRATION.641 [id number] Not available 09/07/2022 02:48:35 Mother Leukemia MIGRATION.763 [id number] Not available 09/07/2022 02:48:35 Mother Depressive disorder MIGRATION.528 [id number] Not available 09/07/2022 02:48:35 Maternal Grandmother Essential hypertension MIGRATION.318 [id number] Not available 09/07/2022 02:48:35 Sister Diabetes mellitus MIGRATION.369 [id number] Not available 09/07/2022 02:48:35 Sister Depressive disorder MIGRATION.222 [id number] Not available 09/07/2022 02:48:35 Sister Kidney disease MIGRATION.574 [id number] Not available 09/07/2022 02:48:35 Medical History No medical history recorded. Gynecological HistoryNo gynecological history recorded. Obstetrics History GPAL:G 0 P 0 0 0 0 Immunizations Vaccine Type Date Status Note Provider Nam e and Address Organization Details Recorded Time TST-PPD intradermal 4 completed VALENTINO Osorio, [place] - S [employer] 07/27/2023 08:21:50 Influenza, split virus, quadrivalent, preservative 9 completed Not Available [facility] 04/25/2023 19:06:51 SARS-COV-2 (COVID-19) vaccine, UNSPECIFIED 1 completed Not Available [facility] 04/25/2023 19:06:51 SARS-COV-2 (COVID-19) vaccine, UNSPECIFIED 1 completed Not Available [facility] 04/25/2023 19:06:51 Influenza, split virus, quadrivalent, preservative 0 completed Not Available [facility] 04/25/2023 19:06:51 Influenza, split virus, quadrivalent, preservative 7 completed Not Available [facility] 04/25/2023 19:06:51 Influenza, split virus, quadrivalent, preservative 8 completed Not Available [facility] 04/25/2023 19:06:51 Hep A-Hep B, pediatric/adolesc ent 8 completed Not Available [facility] 04/25/2023 19:06:51 Influenza, split virus, trivalent, PF 8 completed Not Available [facility] 04/25/2023 19:06:51 Influenza, split virus, quadrivalent, PF 1 completed Not Available [facility] 04/25/2023 19:06:51 Past Encounters Encounter ID Performer Location Encounter Start Date Encounter Closed Date Diagnosis/Indication Diagnosis SNOMED-CT Code Diagnosis ICD10 Code Diagnosis Note [id number] Cameron Acuña MD [facility] [address] [facility] [place] [address] 09/28/2020 00:00:00 09/28/2020 17:07:20 [id number] Cameron Acuña MD [facility] [address] [place] [address] 01/28/2021 00:00:00 01/28/2021 09:54:34 [id number] _ATHN_MIGR ATION_1 _ATHENA_M IGRATION_ DEFAULT_1 _1 , 02/24/2021 00:00:00 02/24/2021 14:47:39 [id number] Cameron Acuña MD [facility] [address] [place] [address]. [place] [address] 06/01/2021 00:00:00 06/01/2021 10:58:21 [id number] Cameron Acuña MD Samantha[facility] [address] [place] [address] 10/18/2021 00:00:00 10/18/2021 17:06:30 [id number] Cameron Acuña MD Samantha[facility] [address] [place] [address]. [place] [address] 02/16/2022 00:00:00 02/16/2022 09:53:26 [id number] Cameron Acuña MD [facility] [address] [place] [address] 08/02/2022 00:00:00 08/02/2022 16:38:59 [id number] Cameron Acuña MD [facility] [place] [place] [address] 12/26/2022 09:51:14 12/26/2022 10:29:45 Diabetes mellitus 60319077 E11.9 under good control Essential hypertension 61710093 I10 stable Asthma 563240459 J45.90 9 stable, no steroid inhaler needed Hyperlipidemia 70155067 E78.5 under control Obesity 857220055 E66.9 advised to lose weight Goiter 6932006 E04.9 s/p neg biopsy 05/2019 Anxiety 67342457 F41.9 under control Osteoporosis 68512249 M8 1.0 on meds since 04/28 Anemia 489724881 D64.9 on OTC iron Adult heal examination 229571714 Z00.00 Colonoscop y- 03/2021Mam [facility]- 2019- [employer]- [place]- [place]- 05/2020, orderedPne umovax- Had 1 yrs agoOV ID- #1- 09/06/20, #2- 09/27/20, booster Screening mammography 24 324096 Z12.31 Screening for osteoporosis 030682465 Z13.820 Long-term drug therapy 563331787 Z79.604 [id number] Cameron Acuña MD [facility] [address] 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[place]- [place]- 05/2020, orderedPne umovax- Had 1 yrs ago2COV ID- #1- 09/06/20, #2- 09/27/20, booster Depression screening 171 267420 Z13.31 Health Concerns Section Related Observation LastModified by Organization Detai ls LastModified Time None Recorded Concern Status LastModified by Organization Details LastModified Time None Recorded Advance Directives Directive N: Payers Insurance Date Sequence Insurance Name Policy Number Policy Buchanan Covered Member ID Buchanan Member ID Guarantor Name 08/23/2023 1 LON [id number] Serene Feliciano [id number] Serene Feliciano Notes Date Note Type [...] taking iron pills Cameron Acuña MD [address], [address], [place], [address], [employer] 12/26/2022 10:27:38 08/10/2023 text/html Pt is here today to discuss radiology results.Pt had a CT chestPt boy friend diag with TB recently and in isolation at her house, getting treatment.no fever, cough, sob, cp or night time sweating.He cxr showed right sided density, CT chest showed old scarring, recent TB test was neg Cameron Acuña MD [address], [place], [address], [employer] 08/10/2023 11:57:02 OBGyn Episode No OBEpisode recorded.
--- OUTSIDE RECORDS SUMMARY | 2025-01-06 14:45 | XMS_ITS | Clinical Summary ---
Author Organization [facility] Address [facility] [place] [address] Care Team Providers Care Icu Specialist Name Role Phone Jocelyne Blair MD Primary Care Provider + Allergies No known active allergies Medications ipratropium-albute rol (DUONEB) 0.5-2.5 (3) MG/3ML Solution Inhale 1 mL every 4-6 hours by nebulization route as needed. Active calcium carb-cholecalcifer ol (CALTRATE+D) 600-10 MG-MCG Tab tablet 2 tablets daily. Act janice Iron, Ferrous Sulfate, 325 (65 Fe) MG [...] mouth daily. 90 tablet 1 10/12/19 25 Active alendronate (FOSAMAX) 70 MG tabletIndications: Age-related [...] complication, without long-term current use of insulin (CMS/HCC HHS/HCC) Take 2 tablets (1,000 mg total) by mouth 2 (two) times daily. 360 tablet 1 10/12/19 Active montelukast (SINGULAIR) 10 MG tabletIndications: Mild intermittent asthma without complication (HHS/HCC) Take 1 tablet (10 mg total) by mouth daily. 90 tablet 1 10/12/19 025 Active dulaglutide (TRULICITY) 0.75 MG/0.5ML injectionIndicatio ns:Type 2 diabetes mellitus without complication, without long-term current use of insulin (CMS/HCC HHS/HCC) Inject 0.75 mg into the skin once a week. 6 mL 1 10/15/19 Active Active Problems Problem Noted Date Diagnosed Date [...] complication, without long-term current use of insulin ([facility]) 10/11/2024 Overview (10/11/2024): Diagnosed years ago. Last A1c 6.2% about 4 months ago. Currently taking metformin. Has not been offered any other medication regimen. Sees eye doctor in [place]. She is not aware of any complications [...] alendronate. Has been taking it since maybe 2019. DEXA scheduled in December. Saw Dr. Acuña through [facility]. Assessment & Plan (10/11/2024 2:27 PM CDT): Will obtain record for last DEXA scan. Suspect she requires a alendronate hiatus for a year or 2 since she has been on the medication for possibly 5 years. Await bone scan results and will discuss this further at her physical follow-up. Continue alendronate for now. Encounters Date Type Department Care Team Description 11/01/2024 Nanosolart Message Enc [address] [place] [address] Jocelyne Blair MD [facility] 10/31/2024 Scan [employer] INFO SRVCS Scanned, Doc Med Group Image (SCAN) 10/31/[address] [place] [address] Jocelyne Blair MD Results 10/31/2024 KnCMiner Message Enc [address] [place] [address] Jocelyne Blair MD X-Ray 10/31/2024 Orders Only [address] [place] [address] Lidia Marvni LPN 10/30/2024 Results Follow-Up [address] [place] [address] Susana Carreno NP HEMOGLOBIN, GLYCOSYLATED, COMPREHENSIVE METABOLIC PANEL, LIPID PANEL, Additional followed-up results: 4 10/30/[address] [place] [address] Jocelyne Blair MD Record Request 10/18/2024 KnCMiner Message Enc [address] [place] [address] Jocelyne Blair MD New med 10/14/[address] [place] [address] Jocelyne Blair MD Medication Request 10/14/[address] [place] [address] oJcelyne Blair MD Record Request 10/11/2024 1:50 PM CDT Office Visit [address] [place] [address] Jocelyne Blair MD New Patient (Here to get established. She has DM and wants to discuss this. 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 Legal Sex Female 7:10 PM INSULATION BLANKET MAKER Gender Identity Not on file Sexual Orientation Not on file Last Filed Vital Signs Vital Sign Reading Time Taken Comments Blood Pressure 123/71 10/11/2024 1:20 PM CDT Pulse 96 10/11/2024 1:20 PM CDT Temperature 36.6 C (97.8 F) 10/11/2024 1:20 PM CDT Respiratory Rate 16 09/02/2024 7:14 PM INSULATION BLANKET MAKER Oxygen Saturation 100% 10/11/2024 1:20 PM CDT Inhaled Oxygen Concentration - - Weight 86.5 kg (190 lb 12.8 oz) 10/11/2024 1:20 PM CDT Height 163.8 cm (5' 4.5) 10/11/2024 1:20 PM CDT Body Mass Index 32.24 10/11/2024 1:20 PM CDT Plan of Treatment Upcoming Encounters Date Type Department Care Team (Late st Contact Info) Description 01/13/2025 2:40 PM CDT Office Visit [facility] Family Medicine - [place] [address] [facility] [address] [place] [address] [phone] Jocelyne Blair MD [address] [place] [phone] Health Maintenance Due Date Last Done Comments [...] Colorectal Cancer Screening Colonoscopy (10 Years) 03/29/2031 03/29/2021, 06/07/2012 COVID-19 Vaccine Completed 05/25/2024, , 07/05/2021, Additional history exists PHQ-2 (Physician [place]) Completed 10/11/2024 Meningococcal B Vaccine Aged Out No l onger eligible based on patient's age to complete this topic Meningococcal Vaccine Aged Out No daren fox eligible based on patient's age to complete this topic RSV Immunizations Under 20 Months Aged Out No longer eligible based on patient's age to complete this topic Procedures Procedure Name Priority Date/Time Associated Diagnosis Comments IMAGE GENERIC 10/31/2024 QUANTIFERON - TB GOLD PLUS, 1T Routine 10/25/2024 7:22 AM CDT VITAMIN B-12 Routine 10/25/2024 7:22 AM CDT CBC W/DIFF AUTOMATED Routine 10/25/2024 7:22 AM CDT ALBUMIN URINE RANDOM W/CREATININE Today 10/25/2024 7:22 AM CDT Type 2 diabetes mellitus without complication, without long-term current use of insulin ([facility]) LIPID PANEL Today 10/25/2024 7:22 AM CDT Mixed hyperlipidemia COMPREHENSIVE METABOLIC PANEL Today 10/25/2024 7:22 AM CDT Essential hypertension HEMOGLOBIN, GLYCOSYLATED Today 10/25/2024 7:22 AM CDT Type 2 diabetes mellitus without complication, without long-term current use of insulin ([facility]) MAMMOGRAM GENERIC (SCAN ORDER) 10/01/2024 COLONOSCOPY GENERIC (SCAN ORDER) 03/29/2021 from Last 3 Months or Most Recently Relevant to Health Maintenance Results * IMAGE GENERIC (10/31/2024) Anatomical Region Laterality Modality Other 10/31/2024 us Doc Med Group Scanned SCANNING Final Resu lt * (ABNORMAL) QUANTIFERON - TB GOLD PLUS, 1T (10/25/2024 7:22 AM CDT) TB QUANTIFERON POSITIVE( A) NEGATIVE [facility] Comment: In healthy persons who have a low likelihood of M. tuberculosis infection, a single positive QFT result should not be taken as reliable evidence of M. tuberculosis infection. Repeat testing, with either the initial test or a different test, may be considered on a [id number] basis. NIL (TB) 0.03 IU/mL [facility] MITOGEN NIL 7.00 IU/mL [facility] TB1 AG MINUS NIL 0.39 IU/mL [facility] TB2 AG MINUS NIL 0.40 IU/mL [facility] Comment: The Nil tube value reflects [...] T-lymphocytes. For additional information, please refer to https://education.TapToLearn/faq/BBO665 (This link is being provided for informational/ educational purposes only.) 10/25/2024 7:22 AM CDT 10/25/2024 7:26 AM CDT Narrative [facility] - [place] - 10/30/2024 12:35 PM CDT FASTING:YES FASTING: YES Resulting Agency Comment Performing Organization Information: Site ID: [place] Name: [facility] Address: [address] [address] Director: Mary Ann Juares MD us Jocelyne Blair MD LABORATORY Final Re sult [facility] - [place] [facility] [address] [address] [address], * (ABNORMAL) HEMOGLOBIN, GLYCOSYLATED (10/25/2024 7:22 AM CDT) Pathologist [facility] HGB A1C 6.5(H) <5.7 % of total Hgb [facility] Comment: For someone without known diabetes, [...] AM CDT 10/25/2024 7:26 AM CDT Narrative [facility] - [place] - 10/30/2024 12:35 PM CDT FASTING:YES FASTING: YES Resulting Agency Comment Performing Organization Information: Site ID: Name: [facility] Address: [address] [place] [phone] Director: Mary Ann Juares us Jocelyne Blair MD LABORATORY Final Re sult [facility] [address] [address], * VITAMIN B-12 (10/25/2024 7:22 AM CDT) [facility] VITAMIN B12 S/P/B 310 200 - 1,100 pg/mL [facility] Comment: Please Note: Although the reference range [...] AM CDT 10/25/2024 7:26 AM CDT Narrative [facility] - [place] - 10/30/2024 12:35 PM CDT FASTING:YES FASTING: YES Resulting Agency Comment Performing Organization Information: Site ID: [id number] Name: [email or web address] Address: [address] [place] [phone] Director: Mary Ann Juares MD us Jocelyne Blair MD LABORATORY Final Re sult Performing Organization Address [facility]/ZIP Co de Phone Number FILI ELIZABETH [facility] [phone] [place] [address] [place] [address], [place] * ALBUMIN URINE RANDOM W/CREATININE (10/25/2024 7:22 AM CDT) CREATININE RANDOM (U) 42 20 - 275 mg/dL [facility] MICROALBUMIN (U) 0.5 See Note: mg/dL [facility] Comment: Reference Range: Reference Range Not established MICROALB/CREAT 12 <30 mg/g creat [facility] Comment: The ADA defines abnormalities in [...] AM CDT 10/25/2024 7:26 AM CDT Narrative [facility] - [place] - 10/30/2024 12:35 PM CDT FASTING:YES FASTING: YES Resulting Agency Comment Performing Organization Information: Site ID: [id number] Name: [email or web address] Address: [address] [place] [phone] Director: Mary Ann Juares MD us Jocelyne Blair MD URINE ORDERABLES Final R esult Performing Organization Address [facility]/ZIP Co de Phone Number [facility] SARAH - [place] ELIZABETH [facility] [address] [facility] [place] [address], * (ABNORMAL) COMPREHENSIVE METABOLIC PANEL (10/25/2024 7:22 AM CDT) GLUCOSE 138(H) 65 - 99 mg/dL [facility] Comment: Fasting reference interval For someone without known diabetes, a glucose value >125 mg/dL indicates that they may have diabetes and this should be confirmed with a follow-up test. BUN 24 7 - 25 mg/dL [place] CREATININE S/P/B 0.77 0.50 - 1.05 mg/dL [place] GFR ESTIMATE 87 > OR = 60 mL/min/1. 73m2 [place] BUN CREATININE RATIO SEE NOTE: 6 - 22 (calc) [place] Comment: Not Reported: BUN and Creatinine are within reference range. SODIUM S/P/B 133(L) 135 - 146 mmol/L [place] POTASSIUM S/P/B 3.8 3.5 - 5.3 mmol/L [place] CHLORIDE S/P/B 98 98 - 110 mmol/L [place] CO2 27 20 - 32 mmol/L [place] CALCIUM S/P/B 9.2 8.6 - 10.4 mg/dL [place] TOTAL PROTEIN S/P/B 6.5 6.1 - 8.1 g/dL [place] ALBUMIN S/P/B 4.2 3.6 - 5.1 g/dL [place] GLOBULIN 2.3 1.9 - 3.7 g/dL (calc) [place] ALBUMIN/GLOBULIN RATIO 1.8 1.0 - 2.5 (calc) [place] BILIRUBIN TOTAL S/P/B 0.3 0.2 - 1.2 mg/dL [place] ALKALINE PHOSPHATASE S/P/B 49 37 - 153 U/L [place] AST 15 10 - 35 U/L [place] ALT 14 6 - 29 U/L [place] 10/25/2024 7:22 AM CDT 10/25/2024 7:26 AM CDT Narrative [facility] - [place] - 10/30/2024 12:35 PM CDT FASTING:YES FASTING: YES Resulting Agency Comment Performing Organization Information: Site ID: [place] Name: [facility] Address: [address] [place] [address] Director: Mary Ann Juares Jocelyne Blair MD LABORATORY Final Re sult [facility] - [place], [place] [address] [place] [address], * LIPID PANEL (10/25/2024 7:22 AM CDT) [facility] CHOLESTEROL 149 <200 mg/dL [place] HDL 62 > OR = 50 mg/dL [place] TRIGLYCERIDES 99 <150 mg/dL [place] LDL (CALCULATED) 69 mg/dL (calc) [place] Comment: Reference range: <100 Desirable range <100 mg/dL for primary prevention; <70 mg/dL for patients with CHD or diabetic patients with > or = 2 CHD risk factors. LDL-C is now calculated using the Ronnie-Sreekanth calculation, which is a validated novel method providing better accuracy than the Friedewald equation in the estimation of LDL-C. Ronnie SS et al. ADRIÁN. 2013;310(19): 4810-2578 (http://education.Biofuelbox/faq/IBL057) CHOL/HDL RATIO 2.4 <5.0 (calc) [place] NON HDL CHOLESTEROL 87 <130 mg/dL (calc) [place] Comment: For patients with diabetes plus 1 major ASCVD risk factor, treating to a non-HDL-C goal of <100 mg/dL (LDL-C of <70 mg/dL) is considered a therapeutic option. 10/25/2024 7:22 AM CDT 10/25/2024 7:26 AM CDT Narrative [facility] - [place] - 10/30/2024 12:35 PM CDT FASTING:YES FASTING: YES Resulting Agency Comment Performing Organization Information: Site ID: [place] Name: [facility] Address: [address] [place] [address] Director: Mary Ann Juares Jocelyne Blair MD LABORATORY Final Re sult [facility] - [place], [place] [address] [place] [address], * (ABNORMAL) CBC W/DIFF AUTOMATED (10/25/2024 7:22 AM CDT) WBC 7.4 3.8 - 10.8 Thousand/u L [place] RBC 3.89 3.80 - 5.10 Million/uL [place] HGB 11.5(L) 11.7 - 15.5 g/dL [place] HCT 35.7 35.0 - 45.0 % [place] MCV 91.8 80.0 - 100.0 fL [place] MCH 29.6 27.0 - 33.0 pg [place] MCHC 32.2 32.0 - 36.0 g/dL [place] Comment: For adults, a slight decrease in the calculated MCHC value (in the range of 30 to 32 g/dL) is most likely not clinically significant; however, it should be interpreted with caution in correlation with other red cell parameters and the patient's clinical condition. RDW 12.1 11.0 - 15.0 % [place] PLT 263 140 - 400 Thousand/u L [place] MPV 9.2 7.5 - 12.5 fL [place] ABS. NEUTROPHILS 4,277 1,500 - 7,800 cells/uL [place] ABS. LYMPHOCYTES 2,213 850 - 3,900 cells/uL [place] ABS. MONOCYTES 348 200 - 950 cells/uL [place] ABS. EOSINOPHILS 533(H) 15 - 500 cells/uL [place] ABS. BASOPHILS 30 0 - 200 cells/uL [place] SEG NEUTROPHILS 57.8 % [facility] [place] LYMPHOCYTES 29.9 % [place] MONOCYTES 4.7 % [facility] [place] EOSINOPHILS 7.2 % [facility] BASOPHILS 0.4 % [facility] [place] 10/25/2024 7:22 AM CDT 10/25/2024 7:26 AM CDT Narrative [facility] - [place] - 10/30/2024 12:35 PM CDT FASTING:YES FASTING: YES Resulting Agency Comment Performing Organization Information: Site ID: [place] Name: [facility] Address: [address] [place] [address] Director: Mary Ann Juares Jocelyne Blair MD LABORATORY Final Re sult [facility] - [place] [facility] TeamLINKSWH[place], [place] [id number] [place] [phone], [place] * MAMMOGRAM GENERIC (SCAN ORDER) (10/01/2024) Anatomical Region Laterality Modality Other 10/01/2024 us [facility] Scanned SCANNING Final Resu lt * COLONOSCOPY GENERIC (SCAN ORDER) (03/29/2021) 03/29/2021 us [facility] Scanned SCANNING Final Resu lt from Last 3 Months or Most Recently Relevant to Health Maintenance Insurance [employer] Care Teams Icu Specialist Relationship Specialty Start Date End Date Jocelyne Blair MD [address] [place] [phone] PCP - General FAMILY PRACTICE 09/11/24
--- OUTSIDE RECORDS SUMMARY | 2025-01-06 14:45 | XMS_ITS | Encounter Summary ---
Author Organization [facility] Address [address] [place] [address] Care Team Providers Care Dredge Or Barge Shore Hand Name Role Phone Jocelyne Blair MD Primary Care Provider + Reason for Visit * Reason Onset Date Comments Results 11/01/2024 Encounter Details Date Type Department Care Team (Late st Contact Info) Description 11/01/2024 Kareot Message Enc [facility] Family Medicine - [place] [address] [place] [phone] Jocelyne Blair MD [address] [place] [phone] New med Social History Tobacco Use Types [...] Sex Assigned at Female 09/02/2024 7:31 PM GIS 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 * Jocelyne Blair MD - 11/04/2024 7:56 AM CDT Positive Quantiferon gold requires no further action. Is the trulicity all taken care of now? * Susana Carreno NP - 11/01/2024 12:47 PM CDT I sent message to Dr. Moses to review * Susana Carreno NP - 11/01/2024 12:46 PM CDT See below * Lidia Marvin LPN - 11/01/2024 10:56 AM CDT Just wanted to document here and make you aware that Beryl with the health department and [facility] have been in touch. Beryl offered to discuss preventative medications for her. I told her that we would leave this up to her and Beryl unless I heard back from her if she needs anything. Is there anything further you want me to do? Should we forward this all to Dr. Moses or do you plan to make her aware when she gets back? documented in this encounter Plan of Treatment Upcoming Encounters Date Type Department Care Team (Late st Contact Info) Description 01/13/2025 2:40 PM CDT Office Visit [facility] Family Medicine - [place] [address] [place] [phone] Jocelyne Blair MD [address] [place] [address] documented as of this encounter Visit Diagnoses Not on filedocumented in this encounter Care Teams Dredge Or Barge Shore Hand Relationship Specialty Start Date End Date Jocelyne Blair MD [address] [place] [address] PCP - General FAMILY PRACTICE 09/11/24 documented as of this encounter
--- OUTSIDE RECORDS SUMMARY | 2025-01-06 14:45 | XMS_ITS | Data Portability ---
Author Organization [facility] Address [address] [place] [address] [address] Care Team Providers Care Pierogi Maker Name Role Phone LITA CRUZ Primary Care Provider BRENDA TOBIAS Primary Care Provider Assessment Encounter Date Assessment Date Assessment LastModified [...] Imaging MAMMO, screening, digital, bilateral 2023 024 [facility], [address], [place], [address], 05:01:23 Medication Orders None recorded. Patient TargetsNo [...] Order ing Locat ion: [place] Patho brooke Wagner zachary: 02/06 0128 First Hectordemetri n: Leny Martinez ret, CT Speci men: Dina greene Pap - Image d, Cervi x STATE MENT OF ADEQU ACY: Satis facto ry for evalu ation ----- ----- ----- ----- ----- ----- ----- ----- ----- ----- ----- ----- ----- ----- ----- ----- ----- ---- FINAL DIAGN OSIS: Negat janice for Intra epith elial Lesio susie or Cleo ruiz ([facility]) . Elect rhys suazo d by Leny Martinez ret, CT [...] Neopl regi (if appli cable ): Signi fican t Clini lobito Findi ngs: Other Histo [...] is recom melly d, as clini rylee warra nted. Not Available [facility] (Lab) [address], [place], [address], 02/13/2024 08:16:49 10/03/19 25 10/01/2024 MAMMO , scree ramona, digit al, bilat eral No observ ation record ed. [address] [facility] [address], [place], [address], 10/08/2024 18:29:57 10/04/19 25 10/01/2024 MAMMO , scree ramona, digit al, bilat eral No observ ation record ed. [email or web address] [facility] [address], [place], [address], 10/08/2024 18:29:58 10/31/19 25 10/30/2024 MAMMO , diagn ostic , unila teral No observ ation record ed. [address] [facility] [address], [place], [address], 11/01/2024 13:57:13 Result Notes None recorded. Problems Name Problem SNOMED Code Status Onset Date Resolution Date Notes Provider Name and Address Organization Details Recorded Time Hypercholester olemia [id number] [facility] 3 10:07:01 Abnormal urinalysis [id number] [facility] 3 10:07:01 Asthma [id number] [facility] 3 10:07:01 Incomplete uterovaginal prolapse [id number] [facility] 3 10:07:01 Hypertensive disorder 88150600 [facility] 3 10:07:01 Midline cystocele [id number] [facility] 3 10:07:01 Female stress incontinence 39229903 [facility] 3 10:07:01 Diabetes mellitus [id number] [facility] 3 10:07:01 Urgent desire to urinate [id number] [facility] 3 10:07:01 Problem Notes None recorded. Procedures Surgical History Date Name Laterality Status Provider Name and Address Organization Details Recorded Time 06/09/20 23 Hysteroscopy completed [facility] 02/06/2024 16:45:28 06/09/20 23 procedure on urinary bladder completed [facility] 02/06/2024 16:45:48 11/24/19 23 DILATION AND CURETTAGE WITH HYSTEROSCOPY (SURG) completed Val Carter [facility] 11/24/2022 10:31:33 10/19/19 23 Date of Last Pap Smear completed Graciela Lagos [facility] 06/19/2023 09:51:49 LEEP completed Milla Carbajal [facility] 02/06/2024 16:45:21 supracervical hysterectomy completed Arely Taylor [facility] [address], [place], [address], [facility] 02/06/2024 16:50:40 Imaging Results None recorded. Procedure Notes None [...] Updated DateTime 02/06/2024 162.56 cm 33.1 kg/m2 52274.33 g 123 mm[Hg] 80 mm[Hg] Milla Carbajal [facility] 4 16:43:07 Date Recorded Body height Body mass index (BMI) Body weight Systolic blood pressure Diastolic blood pressure Provider Name and Address Organization Details Last Updated DateTime 04/21/2023 162.56 cm 34.2 kg/m2 81142.88 g 130 mm[Hg] 77 mm[Hg] [facility] 3 10:06:48 Date Recorded Body height Body mass index (BMI) Body weight Systolic blood pressure Diastolic blood pressure Provider Name and Address Organization Details Last Updated DateTime 06/07/2023 162.56 cm 34.2 kg/m2 49459.88 g 141 mm[Hg] 81 mm[Hg] [facility] 3 16:37:42 Date Recorded Body height Body mass index (BMI) Body weight Systolic blood pressure Diastolic blood pressure Provider Name and Address Organization Details Last Updated DateTime 06/19/2023 162.56 cm 34.7 kg/m2 32101.66 g 120 mm[Hg] 73 mm[Hg] [facility] 3 09:50:40 Social History Question Answer Notes LastModified by Organizat ion Details LastModified Time Tobacco Smoking Status Never Smoker Halie Calderon [email or web address] 06/19/2023 09:32:55 Are You Blind Or Do You Have Difficulty Seeing? No Information n ot available 10/18/2022 What Is Your Level Of Caffeine Consumption? Heavy Information not available 10/31/2022 In The 14 Days Before Symptom Onset, Have You Had Close Contact With A Laboratory-confirm ed COVID-19 While That Case Was Ill? No Information n ot available 10/31/2022 In The 14 Days Before [...] Of Diet Are You Following? DIABETIC Information n ot available 10/31/2022 What Is The Highest Grade Or Level Of School You Have Completed Or The Highest Degree You Have Received? [id number] Information not available 10/31/2022 Are There Any [...] IV Drugs? No Information not available 10/31/2022 Do You Have Difficulty Walking Or Climbing Stairs? No [email or web address] Information not available 06/19/2023 Sex: Unknown Functional Status Question Answer Note LastModified by Organizat ion Details LastModified Time Do you use any illicit or recreational drugs? No Information not available 10/31/2022 What is your level of alcohol consumption? Occasional Information not available 10/18/2022 Are you able to walk? YESWOREST Information not available 10/18/2022 Are you able to care for yourself? 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 No [email or web address] Information not available 06/19/2023 What is your exercise level? Occasional Information not available 10/31/2022 Mental Status Question Answer Note LastModified by Organization D etails LastModified Time Do you feel stressed (tense, restless, nervous, or anxious, or unable to sleep at night)? [id number] Information not available 10/31/2022 Family History Relationship Description Onset Age of this Age Resolved Age Notes LastModified by Organization Details LastModified Time Mother Leukemia Not availabl e 02/06/2024 16:34:31 Brother Heart disease [email or web address] Not available 2022 09:32:54 Sister Diabetes mellitus [email or web address] Not available 2022 09:32:54 Medical History Condition Response Allergies (Food, seasonal, environmental ) N Other N Breast Cancer N Drug/Latex Allergies/Reactions N Blood Transfusion N Lung Disease N Dermatologic Disorders N Defects or Inherited Disease N Breast [...] SNOMED-CT Code Diagnosis ICD10 Code Diagnosis Note [id number] Arely MarcelagloryCLAUDE [place] [address] [address] 10/18/2022 16:25:35 10/19/2022 16:48:19 Postmenopausal bleeding 78585726 N95.0 discussed postmenopa usal bleeding and need for further evaluation pap updated, STI testing declinedpe lvic u/s ordered, encouraged to scheduledd iscussed need for further testing pending u/s - cervix appears very stenotic, may not be able to do EMB in officewill f/u with MD once u/s complete Time spent in visit is a total of 30 mins with at least 50% of visit consisting of counseling and review of plan of care. Uterine prolapse 0457384 5 N81.4 [id number] Matthew Mccarthy MD [facility] [address] [address] 10/20/2022 17:07:35 10/21/2022 12:38:44 Postmenopausal bleeding 83796454 N95.0 [id number] Matthew Mccarthy MD [facility] [address],[place] [address] 10/31/2022 16:21:10 10/31/2022 18:13:12 Postmenopausal bleeding 85388237 N95.0 this patient is a 62-year-ol d [...] 50% of our meeting was counseling . [id number] Matthew Mccarthy MD [place] [address],[place] [address] 11/24/2022 10:18:34 11/24/2022 10:20:38 [id number] Matthew Mccarthy MD [place] [address],[place] [address] 12/01/2022 16:33:53 12/06/2022 14:43:44 Prolapse of female genital organs 53907160 N81.9 62-year-ol d female with pelvic organ [...] as needed. Polyp of corpus uteri 11 797205 N84.0 [id number] Matthew Mccarthy MD [facility] [address] [address] 12/21/2022 16:37:14 12/21/2022 17:55:53 Prolapse of female genital organs 53275148 N81.9 62-year-ol d female who presents with pelvic organ prolapse. She was evaluated previously . We agreed to fit a pessary today. She was fitted with a 2-1/2 inch ring with support. . She does not feel a. She is tolerating well. I believe will stay in. It was snug but did not apply pressure. [id number] Matthew Mccarthy MD [facility] [address],[facility] [place] [address] 01/26/2023 17:09:03 01/26/2023 22:58:11 [id number] MD Denis Santana [address] [address] 04/21/2023 09:41:59 04/21/2023 17:21:56 Prolapse of female genital organs 45305709 N81.9 62-year-ol d female who presents for [...] and more than 50% was counseling . [id number] Matthew Mccarthy MD [place] [address],[place] [address] 06/07/2023 16:25:46 06/08/2023 08:51:29 Prolapse of female genital organs 54512146 N81.9 this patient is a 62-year-ol d [...] consent process and is ready to proceed. [id number] Matthew Mccarthy MD [place] [address],[place] [address] 06/15/2023 13:17:50 07/04/2023 07:30:31 [id number] Matthew Mccarthy MD [facility] [address],[place] [address] 06/19/2023 09:32:09 06/19/2023 16:30:14 Postoperative care [id number] Z48.89 62-year-ol d female presents for postop follow-up. Underwent robotic supracervi lobito hysterecto my and sacral spinous ligament fixation. Has no complaints . Her incisions are clean dry and intact. Normal postoperat janice recovery. [id number] Arely Taylor, CLAUDE [facility] [address] [address] 02/06/2024 16:34:26 02/06/2024 17:31:36 Gynecologic examination 69720150 Z01.419 WWEpostmen opausalpap updateddec lined STI screenmamm [...] answered. Screening for malignant neoplasm of breast 618731274 Z12.39 Health Concerns Section Related Observation LastModified by Organization Detai ls LastModified Time None Recorded Concern Status LastModified by Organization Details LastModified Time None Recorded Advance Directives Directive None Recorded Payers Insurance Date Sequence Insurance Name Policy Number Policy Buchanan Covered Member ID Buchanan Member ID Guarantor Name 02/06/2024 1 LON [id number] Serene Feliciano [id number] Serene Feliciano Notes Date Note Type [...] before the surgery. We spent 20 minutes [id number]-bv-[id number] and more than 50% was counseling. Matthew Mccarthy MD [address], [place], [address], [facility] 04/21/2023 17:13:42 3 text/htm l this [...] infection. Matthew Mccarthy MD [address], [place], [address], [facility] 06/07/2023 20:08:59 3 text/htm l 62-year-old female presents for postop follow-up. Underwent robotic supracervical hysterectomy and sacral spinous ligament fixation. Has no complaints. Her incisions are clean dry and intact. Normal postoperative recovery. Matthew Mccarthy MD [address], [place], [address], [facility] 06/19/2023 15:35:36 4 text/htm l Annual Clerical Grader Post-MenopausalReported bypatient.Menopausal Symptoms:no menopausal symptoms; normal vaginal [...] bilateral salpingo-oophorectomy and sacral spinous ligament fixation oing well, no issuesh/o LEEP in 2006last pap 10/2022 : nilm, HPV (-) mammogram - needs orderdexa - managed by PCP, on alendronatecolonoscopy UTD CLAUDE Jade [address], [place], [address], [place] [facility] 02/06/2024 17:26:33 OBGyn Episode Ob Episode Information Episode Created Date Number of Fetuses Patient Bloodtype Patient rh Status Prepregnancy Weight lbs Domestic Partner Domestic Partner Phone Father Name Heel Sorter Status 10/19/19 23 1 CLOSED Fetus Data First Name Last Name Admitted to NICU Weight (g) Sex Living Outcome Pediatric Complications Fetus ID Race Codes Race Delivery Type 3288.54 2 F Full Term [id number] Vaginal Delivery Andrew Calculation Initial Andrew Date [...] Partner Domestic Partner Phone Father Name Heel Sorter Status 10/19/19 23 1 CLOSED Fetus Data First Name Last Name Admitted to NICU Weight (g) Sex Living Outcome Pediatric Complications Fetus ID Race Codes Race Delivery Type 3345.24 1 M Full Term [id number] Vaginal Delivery Andrew Calculation Initial Andrew Date [...]
--- OUTSIDE RECORDS SUMMARY | 2025-01-06 14:45 | XMS_ITS | Encounter Summary ---
Author Organization [facility] Address [address] [place] [address] Care Team Providers Care Powertrain Engineer Name Role Phone Jocelyne Blair MD Primary Care Provider + Encounter Details Date Type Department Care Team ([facility] Contact Info) Description 10/18/2024 MyChart Message Enc [facility] Medical [facility] Family Medicine - [address] [address] Jocelyne Blair MD [address] [place] [address] New med Social History Tobacco Use [...] Sex Assigned at Female 09/02/2024 7:31 PM WIRELESS CONSULTANT Legal Sex Female 7:10 PM WIRELESS CONSULTANT Gender Identity Not on file Sexual Orientation Not on file documented as of this encounter Plan of Treatment Upcoming Encounters Date Type Department Care Team (Late Contact Info) Description 01/13/2025 2:40 PM CDT Office Visit [facility] Medical [facility] Family Medicine - [address] [place] [address] Jocelyne Blair MD [address] [place] [address] documented as of this encounter Visit Diagnoses Not on filedocumented in this encounter Care Teams Powertrain Engineer Relationship Specialty Start Date End Date Jocelyne Blair MD [address] [facility] [address] [place] [address] PCP - General FAMILY PRACTICE 09/11/24 documented as of this encounter
--- OUTSIDE RECORDS SUMMARY | 2025-01-06 14:45 | XMS_ITS | Encounter Summary ---
Author Organization [facility] Address [address] [place] [address] Care Team Providers Care Lode Miner Blasting Name Role Phone Jocelyne Blair MD Primary Care Provider + Encounter Details Date Type Department Care Team (Late Contact Info) Description 10/31/2024 MyChart Message Enc [address] [address] Jocelyne Blair MD [address] [place] [address] X-Ray Social History Tobacco Use Types [...] Sex Assigned at Female 09/02/2024 7:31 PM CLUTCH INSPECTOR Legal Sex Female 7:10 PM CLUTCH INSPECTOR Gender Identity Not on file Sexual Orientation Not on file documented as of this encounter Progress Notes * Lili Muñoz MA - 10/31/2024 2:19 PM CDT Lidia took care of this. Pt picked up order. documented in this encounter Plan of Treatment Upcoming Encounters Date Type Department Care Team (Late st Contact Info) Description 01/13/2025 2:40 PM CDT Office Visit [address] [place] [address] Jocelyne Blair MD [address] [place] [address] documented as of this encounter Visit Diagnoses Not on filedocumented in this encounter Care Teams Lode Miner Blasting Relationship Specialty Start Date End Date Jocelyne Blair MD [address] [place] [address] PCP - General FAMILY PRACTICE 09/11/24 documented as of this encounter
== END 2025-01-06 14:37 | disposition home or self-care (01) ==
PROVIDERS: PCP Student in an Organized Health Care Education/Training Program; Visit Provider Emergency Medicine
DX: M81.0 Age-related osteoporosis without current pathological fracture (principal); Z13.820 Encounter for screening for osteoporosis
CPT/HCPCS: 77080

== ENCOUNTER 2025-05-27 11:05 | Outpatient (CLI) | payer OTHER, SELFPAY ==
--- NOTE | ~2025-05-27 | MMUS_ITS ---
EXAMINATION: MM diagnostic manny RT w sebastián, US breast RT limited. INDICATION: 64-year old female; BI-RADS 3, short-term follow-up Right breast cluster of calcifications upper central and right breast mass. COMPARISON: 10/30/2024 through 07/28/2006 TECHNIQUE: Digital breast tomosynthesis ML and spot compression CC and MLO views of right breast were obtained with computer-aided detection to assist in interpretation of the study. MAMMOGRAM FINDINGS: There are scattered areas of fibroglandular density. The calcifications of concern in the upper central right breast are coarse and benign-appearing. Existing mass in the medial central location is unchanged. This mass is known to represent a simple cyst. A new mass has developed in the superior slightly medial at middle depth. Ultrasound was performed for further evaluation. RIGHT BREAST ULTRASOUND FINDINGS: Targeted evaluation of superior medial right breast was completed. At 1:00, 4 cm FN there is a complex hypoechoic mass that has both cystic and solid component measuring 0.8 x 0.7 x 0.5 cm. The lesion correlates to the area of mammographic finding. Anechoic mass at 3:00, 3 cm from the nipple redemonstrated measures 0.7 x 1.1 x 0.5 cm and is unchanged. IMPRESSION: 1. Suspicious right breast complex mass at 1:00, 4 10 m FN location that correlates to new mammography finding. Recommend biopsy under ultrasound guidance. 2. Benign coarse calcifications. No further investigation necessary. 3. Simple cyst at 3:00 location. No further investigation necessary. BI-RADS 4, SUSPICIOUS Reviewed, dictated and finalized at location B. HER LEVELER IMPRESSION: 1. Suspicious right breast complex mass at 1:00, 4 10 m FN location that corre lates to new mammography finding. Recommend biopsy under ultrasound guidance. 2. Benign coarse calcifications. No further investigation necessary. 3. Simple cyst at 3:00 location. No further investigation necessary. BI-RADS 4, SUSPICIOUS
== END 2025-05-27 11:06 | disposition home or self-care (01) ==
LOC: ANHFOHIMG 11:06
PROVIDERS: PCP Student in an Organized Health Care Education/Training Program; Visit Provider Surgery
DX: R92.1 Mammographic calcification found on diagnostic imaging of breast (principal); N63.15 Unspecified lump in the right breast, overlapping quadrants; R92.8 Other abnormal and inconclusive findings on diagnostic imaging of breast; N60.01 Solitary cyst of right breast
CPT/HCPCS: 76642; 77061; 77065; G0279

== ENCOUNTER 2025-06-09 07:37 | Outpatient (CLI) | payer OTHER, SELFPAY ==
--- NOTE | ~2025-06-09 | MMUS_ITS ---
PROCEDURE(S): MM post biopsy diagnostic RT, US breast biopsy RT w image INDICATION(S): Status post ultrasound-guided right breast biopsy COMPARISON(S): Studies dating back to September, TECHNIQUE/FINDINGS: Informed consent was obtained. Under sterile conditions, 1% lidocaine was injected as local anesthetic. Lidocaine with epinephrine was utilized for more deep anesthesia. A skin yael was made with a scalpel, and a coaxial was placed with ultrasound guidance. Following that, multiple samples were obtained with a 14-gauge spring- loaded biopsy needle and sonographic guidance. No complications occurred. The patient tolerated the procedure well. A biopsy marker was placed in the biopsy bed at the end of the procedure. A two-view mammogram demonstrates the biopsy marker in the expected location. IMPRESSION: Status post ultrasound-guided core biopsy. Pathology is pending. Reviewed, dictated and finalized at location C. LER OPERATOR AUTOMATIC IMPRESSION: Status post ultrasound-guided core biopsy. Pathology is pending.
--- OUTSIDE RECORDS SUMMARY | 2025-06-09 07:40 | XMS_ITS | Encounter Summary ---
Author Organization [facility] Address [address] [place] [address] Care Team Providers Care Filler Blender Name Role Phone Jocelyne Blair MD Primary Care Provider + Encounter Details Date Type Department Care Team ([facility] Contact Info) Description 10/18/2024 Exaprotecthart Message Enc [address] [place] [address] Jocelyne Blair MD [address] [place] [address] [facility] Social History Tobacco Use Types Packs/Day Years Used Date Smoking Tobacco: Never Passive Smoke Exposure: Past Smokeless Tobacco: Never Alcohol Use Standard Drinks/Week Comments Yes 1.7 (1 standard drink = 0.6 oz p ure alcohol) occ PHQ-2 Answer Date Recorded Patient Health Questionnaire-2 Score 0 10/11/2024 Comments No Sex and Gender Information Value Date Recorded Sex Assigned at Female 09/02/2024 7:31 PM SEALER OPERATOR Legal Sex Female 7:10 PM SEALER OPERATOR Gender Identity Not on file Sexual Orientation Not on file documented as of this encounter Plan of Treatment Upcoming Encounters Date Type Department Care Team (Late Contact Info) Description 10/31/2025 2:20 PM CDT Office Visit [facility] [address] [facility] [address] [place] [address] Jocelyne Blair MD [address] [place] [address] documented as of this encounter Visit Diagnoses Not on filedocumented in this encounter Care Teams Filler Blender Relationship Specialty Start Date End Date Jocelyne Blair MD [address] [place], [place] [phone] PCP - General FAMILY PRACTICE 09/11/24 documented as of this encounter
--- OUTSIDE RECORDS SUMMARY | 2025-06-09 07:40 | XMS_ITS | Encounter Summary ---
Author Organization [facility] Address [address] [place] [address] Care Team Providers Care Cooperative Extension Agent Name Role Phone Jocelyne Blair MD Primary Care Provider + Encounter Details Date Type Department Care Team (Late st Contact Info) Description 10/31/2024 [place] Technologiest Message Enc [facility] Family Medicine - [place] [address] [facility] [address] [place] [phone] Jocelyne Blair MD [address] [place] [address] X-Ray Social History Tobacco Use Types [...] Sex Assigned at Female 09/02/2024 7:31 PM SECURITY INSPECTOR Legal Sex Female 7:10 PM SECURITY INSPECTOR Gender Identity Not on file Sexual Orientation Not on file documented as of this encounter Progress Notes * Lili Muñoz MA - 10/31/2024 2:19 PM CDT Lidia took care of this. Pt picked up order. documented in this encounter Plan of Treatment Upcoming Encounters Date Type Department Care Team (Late st Contact Info) Description 10/31/2025 2:20 PM CDT Office Visit [facility] Family Medicine - [place] [address] [place] [address] Jocelyne Blair MD [address] [place] [address] documented as of this encounter Visit Diagnoses Not on filedocumented in this encounter Care Teams Cooperative Extension Agent Relationship Specialty Start Date End Date Jocelyne Blair MD [address] [place] [address] PCP - General FAMILY PRACTICE 09/11/24 documented as of this encounter
--- OUTSIDE RECORDS SUMMARY | 2025-06-09 07:40 | XMS_ITS | Clinical Summary ---
Author Organization [facility] Address [address] [place] [address] Care Team Providers Care Clinical Manager Name Role Phone Jocelyne Blair MD Primary Care Provider + Allergies No known active allergies Medications ipratropium-albut mireya (DUONEB) 0.5-2.5 (3) MG/3ML Solution Inhale 1 mL every 4-6 hours by nebulization route as needed. Active calcium carb-cholecalcife rol (CALTRATE+D) 600-10 MG-MCG Tab tablet 2 tablets daily. Active Iron, Ferrous Sulfate, 325 (65 Fe) MG Tab Take 1 tablet by mouth daily. Active vitamin D3 (CHOLECALCIFEROL) 25 mcg tablet Take 1 tablet (25 mcg total) by mouth daily. 4000U daily Active alendronate (FOSAMAX) 70 MG tabletIndications :Age-related osteoporosis without current pathological fracture Take 1 tablet (70 mg total) by mouth every 7 days. 12 tablet 3 025 Active albuterol sulfate HFA 108 (90 Base) MCG/ACT inhalerIndication s:Mild intermittent asthma without complication (HHS/HCC) INHALE 2 PUFFS INTO THE LUNGS EVERY 6 HOURS NEEDED FOR WHEEZE 18 g 3 025 Active dulaglutide (TRULICITY) 1.5 MG/0.5ML injectionIndicati ons:Type 2 diabetes mellitus without complication, without long-term current use of insulin (CMS/HCC HHS/HCC) Inject 1.5 mg into the skin once a week. 3 mL 1 10/16/2 025 Active lisinopril (PRINIVIL) 20 MG tabletIndications :Primary hypertension Take 1 tablet (20 mg total) by mouth daily. 90 tablet 3 025 2025 Active atorvastatin (LIPITOR) 40 MG tabletIndications :Mixed hyperlipidemia Take 1 tablet (40 mg total) by mouth daily. 90 tablet 1 025 2025 Active montelukast (SINGULAIR) 10 MG tabletIndications :Mild intermittent asthma without complication (HHS/HCC) Take 1 tablet (10 mg total) by mouth daily. 90 tablet 1 025 2025 Active budesonide-formot mireya (SYMBICORT) 160-4.5 MCG/ACT inhalerIndication s:Mild intermittent asthma without complication (HHS/HCC) INHALE 2 PUFFS INTO THE LUNGS TWICE A DAY 30.6 g 1 Active metFORMIN (GLUCOPHAGE) 500 MG tabletIndications :Type 2 diabetes mellitus without complication, without long-term current use of insulin (CMS/HCC HHS/HCC) TAKE 2 TABLETS BY MOUTH TWICE A DAY 360 tablet 1 Active metFORMIN (GLUCOPHAGE) 500 MG tabletIndications :Type 2 diabetes mellitus without complication, without long-term current use of insulin (CMS/HCC HHS/HCC) Take 1 tablet (500 mg total) by mouth 2 (two) times daily. 180 tablet 3 2024 Discontinued Active Problems Problem Noted Date Diagnosed Date Mild intermittent asthma without complication Overview (10/11/2024): Takes symbicort, singulair and albuterol. Weather triggers symptoms. Uses albuterol daily or weekly. Assessment & Plan (04/24/2025 9:57 AM CDT): Chronic and controlled. Continue Symbicort, singular, albuterol. Primary hypertension 10/11/2024 Overview (04/24/2025): Currently taking lisinopril 30 mg daily. Hydrochlorothiazide eliminated when blood pressure started to drop with weight loss on GLP-1. Denies any dizziness. Blood pressures are usually 120s over 70s. Assessment & Plan (04/24/2025 9:57 AM CDT): Controlled, even slightly hypotensive today. Recommend reducing lisinopril to 20 mg daily and monitoring blood pressures regularly. She will notify me if blood pressures drop below 110 systolic in the meantime. Assessment & Plan (01/13/2025 3:25 PM CDT): Hypotension currently. Discontinue hydrochlorothiazide. Request she send me an update in 1 week for further reductions of lisinopril if needed. Assessment & Plan (10/11/2024 2:25 PM CDT): Chronic. Actually hypotensive currently. Continue hydrochlorothiazide but reduce lisinopril to 30 mg daily. Request she update me if blood pressures remain 100s systolic as we would likely reduce her lisinopril further. History of colonic polyps 10/11/2024 Type 2 diabetes mellitus wit hout complication, without long-term current use of insulin 10/11/2024 Overview (04/24/2025): Diagnosed years ago. Last A1c 6.5% in October 2024. Now down to 5.7%. Currently taking metformin 1000 mg twice daily and Trulicity 1.5 mg weekly. Reports overall weight loss approximately 20 pounds. Started at 190 pounds. Sees eye doctor in [place]. She is not aware of any complications from her diabetes. Assessment & Plan (04/24/2025 9:56 AM CDT): Chronic. Controlled. Recommend reduction metformin 500 mg twice daily and continuing Trulicity 1.5 mg weekly. Ordered urine microalbumin for next visit along with CMP and A1c. Assessment & Plan (01/13/2025 3:26 PM CDT): Chronic. Controlled. Has had persistent weight loss with Trulicity. Will continue current dose. Recommend eye exam. Assessment & Plan (10/11/2024 2:26 PM CDT): [...] and it was reassuring. Osteoporosis 05/14/2020 Overview (01/13/2025): Takes alendronate. Has been taking it since maybe 2019. Saw Dr. Acuña through [facility]. Showed me results from DEXA last month which shows improvements. Performed at [facility]. Assessment & Plan (01/13/2025 3:25 PM CDT): Good response to alendronate. Continue alendronate. Assessment & Plan (10/11/2024 2:27 PM CDT): Will obtain record for last DEXA scan. Suspect she requires a alendronate hiatus for a year or 2 since she has been on the medication for possibly 5 years. Await bone scan results and will discuss this further at her physical follow-up. Continue alendronate for now. Encounters Date Type Department Care Team Description 05/27/2025 Scan HEALTH INFO [facility] Scanned, Doc Med Group Mammogram (SCAN) 04/24/2025 9:10 AM CDT Office Visit [address] [place] [address] Jocelyne Blair MD Diabetes (Patient presents for a 3 month follow up diabetes) 04/24/2025 Travel 04/22/2025 MyChart Message Enc [address] [place] [address] Jocelyne Blair MD Diarrhea 03/18/2025 2:40 PM CDT Allied Health/Nurse Visit [address] [place] [address] Jocelyne Blair MD Imm/Inj (Patient presents for vaccines 2nd Shingrix and prevnar 20) 03/18/2025 Travel from Last 3 Months Immunizations Immunization Administration Dates Next Due Arexvy Respiratory Syncytial Virus (RSV, adjuvanted) 0.5 mL, PF 02/12/2025 COVID-19 Vaccine (Generic) 09/27/2020,09/06/2020 FLUCELVAX (ccIIV3, TRIVALENT, 0.5mL) 05/25/2024 Hepatitis A/Hepatitis B(Twinrix) 04/24/2018 Influenza (Generic) 04/26/2017,04/24/2014,2007 Influenza Adult (Generic) 07/26/2022,,04/21/2020,2018,04/24/2018,04/29/2017 Pneumococcal (Prevnar 20) 03/18/2025 Shingrix 03/18/2025,01/13/2025 Tdap (Adacel) 01/13/2025 Family History Medical History Relation Comments No Known Problems Daughter Heart Disease Father Hypertension Father Arthritis Maternal Grandmother Cancer Mother leukemia Depression Mother Mental Health Mother Diabetes Sister 1 Diabetes Sister 2 Heart Disease Sister 2 No Known Problems Son Relation Status Comments Daughter Alive Father Maternal Grandmother Mother Sister 1 Alive Sister 2 Son Alive Social History Tobacco Use Types Packs/Day Years Used Date Smoking Tobacco: Never Passive Smoke Exposure: Past Smokeless Tobacco: Never Tobacco Cessation:Counseling Given: Not Answered Alcohol Use Standard Drinks/Week Comments Yes 1.7 (1 standard drink = 0.6 oz p ure alcohol) occ PHQ-2 Answer Date Recorded Patient Health Questionnaire-2 Score 0 10/11/2024 Comments No Sex and Gender Information Value Date Recorded Sex Assigned at Female 09/02/2024 7:31 PM AMBULATORY ANALYST Legal Sex Female 7:10 PM AMBULATORY ANALYST Gender Identity Not on file Sexual Orientation Not on file Occupation Industry Job Start Date Job End Date 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 [employer] Not on file Not o n file Not on file Last Filed Vital Signs Vital Sign Reading Time Taken Comments Blood Pressure 104/66 04/24/2025 9:12 AM CDT Pulse 93 04/24/2025 9:12 AM CDT Temperature 37.1 C (98.8 F) 04/24/2025 9:12 AM CDT Respiratory Rate 14 04/24/2025 9:12 AM CDT Oxygen Saturation 98% 04/24/2025 9:12 AM CDT Inhaled Oxygen Concentration - - Weight 76.9 kg (169 lb 9.6 oz) 04/24/2025 9:12 A M CDT Height 163.8 cm (5' 4.5) 04/24/2025 9:12 AM CDT Body Mass Index 28.66 04/24/2025 9:12 AM CDT Plan of Treatment Upcoming Encounters Date Type Department Care Team (Late st Contact Info) Description 10/31/2025 2:20 PM CDT Office Visit [facility] Medical [facility] Family Medicine - [place] [address] [facility] [address] [place] [address] Jocelyne Blair MD [address] [place] [address] Health Maintenance Due Date Last Done Comments Hepatitis C 10/23/1979 COVID-19 Vaccine ( season) 2025 05/25/2024, 07/26/2022, 07/05/2021, Additional history exists Influenza Adult (#1) 2025 05/25/2024, 07/26/2022, 06/01/2021, Additional history exists Hemoglobin A1C 10/23/2025 04/24/2025, 10/25/2024 Kidney Health Evaluation 10/25/2025 10/25/2024 Lipid Panel 10/25/2025 10/25/2024 Annual Physical 01/13/2026 01/13/2025 Mammogram Screening 05/27/2026 05/27/2025, 10/30/2024, 10/01/2024 Diabetes: Retinopathy Eye Exam 12/05/2026 12/05/2024 Colorectal Cancer Screening Colonoscopy (10 Years) 03/29/2031 03/29/2021, 06/07/2012 DTaP, Tdap and Td Vaccines (2 - Td or Tdap) 01/13/2035 01/13/2025 Hepatitis A Vaccines Aged Out 04/24/2018 No long er eligible based on patient's age to complete this topic PHQ-2 (Physician [place]) Completed 10/11/2024 RSV Immunization or 60+ Years Completed 02/12/2025 Pneumococcal Vaccine: 50+ Years Completed 03/18/2025 Zoster Vaccines Completed 03/18/2025, 01/13/2025 Meningococcal B Vaccine Aged Out No l onger eligible based on patient's age to complete this topic Meningococcal Vaccine Aged Out No daren fox eligible based on patient's age to complete this topic RSV Immunizations Under 20 Months Aged Out No longer eligible based on patient's age to complete this topic Procedures Procedure Name Priority Date/Time Associated Diagnosis Comments MAMMOGRAM GENERIC (SCAN ORDER) 05/27/2025 COLLECT.CAPILLARY (FNGR,HEEL,EAR) Routine 04/24/2025 9:11 AM CDT Type 2 diabetes mellitus without complication, without long-term current use of insulin ([facility]) HEMOGLOBIN, GLYCOSYLATED Routine 04/24/2025 Type 2 diabetes mellitus without complication, without long-term current use of insulin ([facility]) DIABETIC RETINOPATHY EXAM (NEGATIVE)(SCAN ORDER) Routine 12/05/2024 LIPID PANEL Today 10/25/2024 7:22 AM CDT Mixed hyperlipidemia COLONOSCOPY GENERIC (SCAN ORDER) 03/29/2021 from Last 3 Months or Most Recently Relevant to Health Maintenance Results * MAMMOGRAM GENERIC (SCAN ORDER) (05/27/2025) Anatomical Region Laterality Modality Other 05/27/2025 brettapproved [facility] Scanned SCANNING Final Resu lt * A1C (BACK OFFICE) (04/24/2025) HGB A1C 5.7 % [address], [place] 04/24/2025 Result [facility] Jocelyne Blair MD LABORATORY Final Re sult [address] [place] [address] [place] [address], [place] [phone] * DIABETIC RETINOPATHY EXAM (NEGATIVE) (12/05/2024) brettapproved [facility] Scanned SCANNING Final Resu lt [facility] ON[facility] * LIPID PANEL (10/25/2024 7:22 AM CDT) CHOLESTEROL 149 <200 mg/dL [place] HDL 62 > OR = 50 mg/dL [place] TRIGLYCERIDES 99 <150 mg/dL [place] LDL (CALCULATED) 69 mg/dL (calc) [place] Comment: Reference range: <100 Desirable range <100 mg/dL for primary prevention; <70 mg/dL for patients with CHD or diabetic patients with > or = 2 CHD risk factors. LDL-C is now calculated using the Cathryn calculation, which is a validated novel method providing better accuracy than the Friedewald equation in the estimation of LDL-C. Ronnie MANN et al. ADRIÁN. 2013;310(19): 1046-6444 (http://education.ClickGanic.Epicrisis/faq/MAP557) CHOL/HDL RATIO 2.4 <5.0 (calc) [place] NON HDL CHOLESTEROL 87 <130 mg/dL (calc) [facility] Comment: For patients with diabetes plus 1 major ASCVD risk factor, treating to a non-HDL-C goal of <100 mg/dL (LDL-C of <70 mg/dL) is considered a therapeutic option. 10/25/2024 7:22 AM CDT 10/25/2024 7:26 AM CDT Narrative [facility] [place] - 10/30/2024 12:35 PM CDT FASTING:YES FASTING: YES Resulting Agency Comment Performing Organization Information: Site ID: [facility] Address: [address] [place] [address] Director: Mary Ann Juares Jocelyne Blair MD LABORATORY Final Re sult Performing Organization Address City/[facility] Co de Phone Number [email or web address] [place] [place], [place] [id number] [place] [id number], * COLONOSCOPY GENERIC (SCAN ORDER) (03/29/2021) 03/29/2021 Doc Med Group Scanned SCANNING Final Resu lt from Last 3 Months or Most Recently Relevant to Health Maintenance Insurance [employer] Care Teams Clinical Manager Relationship Specialty Start Date End Date Jocelyne Blair MD [address] [address] PCP - General FAMILY PRACTICE 09/11/24
--- NOTE | 2025-06-09 09:16 | S_PTH ---
PATIENT: Serene Feliciano LOC: [facility] U#:[id number] AGE/SX: 64/F ROOM: RE06/09/[address]: Yoli Mott MD : 1960 BED: DIS: 06/09/2025 SPEC #: [id number] RECD: 06/09/25 10:46 STATUS: NOREEN RETaina #: [id number] FER: 06/09/25 09:[address]: Yoli Mott DEPT: [facility] Surgical RECD BY: Aidee Nolen ENTERED: 06/09/25 10:46 SP TYPE: Surgical OTHR DR: Jocelyne Blair, Tissues: A - Breast Biopsy Procedures: Hematoxylin and Eosin Stain Gross and Microscopic Level 4
== END 2025-06-09 07:38 | disposition home or self-care (01) ==
PROVIDERS: PCP Student in an Organized Health Care Education/Training Program; Visit Provider Surgery
DX: N63.12 Unspecified lump in the right breast, upper inner quadrant (principal); R92.8 Other abnormal and inconclusive findings on diagnostic imaging of breast
CPT/HCPCS: 19083; 77065; 88305; A4648